=== PATIENT | male | born 1970 | race Caucasian/White ===

== ENCOUNTER 2019-04-19 10:02 | Outpatient (CLI) | payer BC, SELFPAY ==
[2019-04-19 10:26] LABS: Abs Immature Grans 0.02 k/cumm (0.0-0.09); Absolute Basophil Count 0.04 k/cumm (0.0-0.2); Absolute Eosinophil Count 0.18 k/cumm (0.0-0.7); Absolute Lymphocyte Count 1.29 k/cumm (1.2-3.4); Absolute Monocyte Count 0.52 k/cumm (0.11-0.7); Absolute Neutrophil Count 2.46 k/cumm (1.2-6.7); Basophils % 0.9; HCT 47.8 % (40.0-50.0); HGB 16.8 g/dL (13.5-17.5); Immature Grans % 0.4; Lymphocytes % 28.6; Mean Corp. HGB Concentration 35.1 g/dL (32.0-36.0); Mean Corpuscular Hemoglobin 32.2 pg (27.0-33.0); Mean Corpuscular Volume 91.6 fL (80-95); Mean Platelet Volume 10.6 fL (8.0-11.0); Monocytes % 11.5; Neutrophils % 54.6; Platelet Count 222 x1000/uL (130-400); RBC 5.22 m/cumm (4.50-6.00); RBC Distribution Width 12.1 % (11.8-14.1); White Blood Cell Count 4.51 k/cumm (4.4-10.8)
[2019-04-19 11:13] LABS: ALT 247 U/L (16-63); AST 116 U/L (15-37); Albumin 4.3 g/dL (3.4-5.0); Alkaline Phosphatase 56 U/L (46-116); Anion Gap 13.3 mmol/L (3-11); BUN 12 mg/dL (7-18); Bilirubin, Total 0.8 mg/dL (0.2-1.0); CO2 25.7 mmol/L (21.0-32.0); CREATININE 1.03 mg/dL (0.70-1.30); Calcium 9.4 mg/dL (8.5-10.1); Calculated LDL 220 mg/dL; Chloride 103 mmol/L (98-107); Cholesterol 320 mg/dL (50-200); Glucose 113 mg/dL (70-100); HDL Cholesterol 58 mg/dL (40-60); Potassium 3.8 mmol/L (3.5-5.1); Sodium 142 mmol/L (136-145); Total Protein 7.2 g/dL (6.4-8.2); Triglyceride 213 mg/dL (30-150)
== END 2019-04-19 10:22 ==
PROVIDERS: PCP Family Medicine; Visit Provider Family Medicine
DX: R09.89 Other specified symptoms and signs involving the circulatory and respiratory systems; I10 Essential (primary) hypertension; E78.5 Hyperlipidemia, unspecified
CPT/HCPCS: 36415; 80053; 80061; 83721; 85025

== ENCOUNTER 2020-01-19 02:06 | Outpatient (CLI) | payer BC, SELFPAY ==
[2020-01-19 09:47] LABS: ALT 115 U/L (16-63); AST 57 U/L (15-37); Albumin 4.8 g/dL (3.4-5.0); Alkaline Phosphatase 61 U/L (46-116); Bilirubin, Direct 0.34 mg/dL (0.00-0.20); Bilirubin, Total 1.5 mg/dL (0.2-1.0); Total Protein 7.8 g/dL (6.4-8.2)
[2020-01-19 10:16] LABS: Calculated LDL 114 mg/dL (<100); Cholesterol 208 mg/dL (<200); HDL Cholesterol 64 mg/dL (40-60); Triglyceride 150 mg/dL (<150)
== END 2020-01-19 02:26 ==
PROVIDERS: PCP Family Medicine; Visit Provider Family Medicine
DX: E78.5 Hyperlipidemia, unspecified (principal)
CPT/HCPCS: 36415; 80061; 80076

== ENCOUNTER 2020-07-09 04:18 | Outpatient (CLI) | payer BC, SELFPAY ==
[2020-07-13 00:47] LABS: Patient Race White; SARS-CoV-2 RNA Undetected (Undetected); SARS-CoV-2 Specimen Source Nasal
== END 2020-07-09 04:38 ==
PROVIDERS: PCP Family Medicine; Visit Provider Family Medicine
DX: Z20.828 Contact with and (suspected) exposure to other viral communicable diseases (principal)
CPT/HCPCS: U0003

== ENCOUNTER 2020-08-31 16:39 | Emergency (ER) | payer BC, SELFPAY ==
[2020-08-31 16:45] VITALS: BP 198/114; PULSE 122; RESP 18; TEMP 37; O2SAT 98
--- NOTE | 2020-08-31 16:45 | RT.EKG_ITS ---
APPROVED REPORT Exam: Resting ECG Patient Location: E HR:122 bpm ECG Measurements Heart Rate 122 AXIS ME 160 P 59 QRSd 88 QRS -21 QT 325 T 50 QTc 463 Conclusion Sinus tachycardia...rate> 99
--- NOTE | 2020-08-31 17:00 | DI.RAD_ITS ---
EXAM: XR CHEST 2V PA LATERAL CLINICAL HISTORY: Elevated blood pressure TECHNIQUE: 2D digital imaging was performed. COMPARISON: CR RIGHT THUMB from 05/10/2015 FINDINGS: MEDIASTINUM: Normal. HEART: Normal. PULMONARY VASCULATURE: Normal. LUNGS: Clear. PLEURAL SPACE: No pleural effusion or pneumothorax. BONE:Normal. OTHER FINDINGS:Normal. IMPRESSION: No acute pulmonary findings. DATA REPOSITORY: RADIATION DOSE DELIVERED:
--- NOTE | 2020-08-31 17:05 | W.ED.GENAD ---
Discharge Plan Disposition Patient Disposition: HOME Condition: Improving Discharge Details Clinical Impression: Acute hypokalemia Primary Care Provider: Ross Pugh ED Provider: Edson Escamilla Home Meds and New Rx's Prescriptions: Continued atorvastatin 40 mg tablet 40 mg PO QHS Qty: 90 RF: 3 omeprazole 20 mg capsule,delayed release(DR/EC) 20 mg PO DAILY PRNRF: 0 alprazolam [Xanax] 0.5 mg tablet 0.5 mg PO BID PRN (Reason: anxiety) Qty: 30 RF: 0 losartan 50 mg tablet 50 mg PO DAILY Qty: 90 RF: 3 Discharge Instructions Instructions: Hypokalemia (ED) Additional Instructions: Home to rest today. Please follow-up in clinic for recheck and to recheck blood pressure in the next 1 to 2 weeks time. Your potassium corrected following supplementation in the ER today. As we discussed, I recommend you discontinue the ketogenic diet. Return to the ER for any acute concerns. Medical Decision Making 50-year-old male with a history of known labile hypertension presents from home stating that he had a normal day, 1 for a 5 mile run that was unremarkable, and then this evening became anxious, felt pounding and rapid heart rate, it became constant and his anxiety escalated. He simply reports the ER for evaluation. He will note that he has been observing a ketogenic diet and efforts to lose weight. [place] generally weak yesterday. States he drinks approximately 4 to 6 ounces of liquor per night. He is afebrile, pulse of 120s, blood pressure 198/114 initially. He is quite anxious. Differential gnosis includes dehydration, electrolyte abnormalities, benign palpitations, dysrhythmia, must exclude coronary disease. IV access established, patient given fluid bolus, anxiolytic and is referred for chest x-ray and laboratory testing. Labs: White count 8, hematocrit 44, platelets 223 sodium 137, potassium 2.8, BUN 21, creatinine 1.2. Calcium is 8.5, magnesium 2.0, AST 80, ALT 126. Troponin negative. Chest x-ray without acute findings. Patient felt significantly improved following anxiolytic and fluids. His blood pressure corrected to approximately 157/90, pulse corrected to 85. His hypokalemia may be due to to recent dietary changes with ketogenic diet. Not classically associated with angiotensin receptor blockers. Potassium was supplemented, patient observed on the cardiac cath lab radiology technologist and potasssium and troponin repeated. Potassium improved to 3.7, repeat troponin negative Discussed with patient that I recommend he cease his ketogenic diet, continue to work on decreasing daily alcohol use. He will need to follow-up in clinic for recheck. He is stable and improved at this time. HPI General Mode of arrival: ambulatory. Date/Time Provider Initiated Documentation: 08/31/20 16:45. Limitations to Documentation: no limitations. Information obtained by: patient. History of Present Illness 50 year old M presents to the emergency department with the chief complaint of Elevated blood pressure and pounding chest discomfort, described as moderate, Quality is described as dull, and is localized to the chest and left. Patient reports no radiation. Patient started experiencing this hour(s) and it has been constant. No relieving factors improve symptom(s), No exacerbating factors reported . Patient notes denies diaphoresis, headaches, nausea/vomiting, shortness of breath, syncope and weakness. Patient did receive the following treatments prior to arrival, none Related Data Home Medications Medication Instructions Recorded Confirmed atorvastatin 40 mg tablet 40 mg PO QHS #90 tab 01/30/20 08/31/20 omeprazole 20 mg capsule,delayed 20 mg PO DAILY PRN cap 04/04/20 08/31/20 release alprazolam 0.5 mg tablet 0.5 mg PO BID PRN #30 tab 07/30/20 08/31/20 losartan 50 mg tablet 50 mg PO DAILY #90 tab 08/06/20 08/31/20 Previous Rx's Medication Instructions Recorded atorvastatin 40 mg tablet 40 mg PO QHS #90 tab 01/30/20 alprazolam 0.5 mg tablet 0.5 mg PO BID PRN #30 tab 07/30/20 losartan 50 mg tablet 50 mg PO DAILY #90 tab 08/06/20 Allergies Allergy/AdvReac Type Severity Reaction Status Date / Time Antihistamines - Alkylamine Allergy Unknown Verified 08/31/20 16:49 sertraline Allergy Unknown Verified 08/31/20 16:49 Sulfa (Sulfonamide Allergy Unknown Verified 08/31/20 16:49 Antibiotics) sulfamethoxazole Allergy Unknown Verified 08/31/20 16:49 [From Bactrim] trimethoprim [From Bactrim] Allergy Unknown blister on Verified 08/31/20 16:49 mouth General Stated Complaint: Chest Pain GREGORY: 2 Review of Systems Narrative: Daily alcohol use. Recently started losartan. No cough, no fever, no shortness of breath. See HPI. 8 systems reviewed and otherwise negative [facility] Medical History Anxiety state (08/22/92) Dr Dykes consult; chronic prn alprazolam; ?EtOH, exercise rx, ? 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 risk 5% (12/2011); goal LDL<130 Family History Mother Age: 78 Alcohol abuse Father Age: 82 Diabetes Myocardial infarction Sister No problems noted. Sister No problems noted. 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 Pets and animals: Yes Pets and animals: cat(s) Sexually active: Yes Do you think of yourself as: straight/heterosexual Current gender identity: male What is your relationship status?: How often do you talk on the phone with friends or family?: three or more times per week How often do you get together with friends or relatives?: decline to answer How often do you attend taoist or sikhism services?: decline to answer Do you belong to any clubs or organized social groups?: no Panel score (0-1 are the most socially isolated patients): 2 What type of physical activity do you participate in: bicycling, weight lifting and running Duration: 60-90 minutes/day Frequency: daily Kala/Adventism: None Special kala needs: No Seatbelt use: sometimes Helmet use: Yes Drive intox or ride w/intox starting gate driver: No Do you feel safe at home: Yes Do you feel safe in your relationship?: No Exam Narrative Exam Narrative: GEN: awake, alert, oriented 3. Pleasant, well groomed, interactive. HEAD: Normocephalic, atraumatic ENT: Mucous membranes moist, oropharynx unremarkable, External ear exam unremarkable EYES: PERRL, EOMI NECK: Full ROM, no LETY, no menigismus CHEST/RESP: Nontender, clear to auscultation bilateral, no wheeze/rhonchi/rales CARDIOVASCULAR: Regular and tachycardic, no murmur, rub doug. 2+ Rad pulse bilateral ABDOMEN: Soft, nontender, no mass. +Bowel sounds EXT: Full ROM, no edema, no rash Neuro: Grossly normal neurologic exam, conversant, interactive. Psych: Speech fluent, thoughts congruent, affect anxious Course Vital Signs Vital signs: Vital Signs Temperature 37 C 08/31/20 16:45 Pulse 122 H 08/31/20 16:45 Respiratory Rate 18 08/31/20 16:45 Blood Pressure 198/114 H 08/31/20 16:45 Pulse Oximetry 98 08/31/20 16:45 Temperature 37 C 08/31/20 16:45 Temperature Source Skin 08/31/20 16:45 Pulse 122 H 08/31/20 16:45 Respiratory Rate 18 08/31/20 16:45 Respiratory Effort Non-Labored 08/31/20 16:45 Blood Pressure 198/114 H 08/31/20 16:45 Blood Pressure Position Supine 08/31/20 16:45 Pulse Oximetry 98 08/31/20 16:45 Pain Level 8 08/31/20 16:45
[2020-08-31 17:16] LABS: Abs Immature Grans 0.03 10^3/uL (0.0-0.06); Absolute Basophil Count 0.04 10^3/uL (0.0-0.2); Absolute Eosinophil Count 0.21 10^3/uL (0.0-0.7); Absolute Lymphocyte Count 2.75 10^3/uL (1.2-3.4); Absolute Monocyte Count 1.07 10^3/uL (0.1-0.8); Absolute Neutrophil Count 4.68 10^3/uL (1.2-6.7); Basophils % 0.5; Eosinophils % 2.4; HCT 44.9 % (40.0-50.0); HGB 15.8 g/dL (13.5-17.5); Immature Grans % 0.3; Lymphocytes % 31.3; MCH 31.9 pg (27.0-33.0); MCHC 35.2 % (32.0-36.0); MCV 90.5 fL (80-95); MPV 10.6 fL (8.0-11.0); Monocytes % 12.2; Neutrophils % 53.3; Nucleated RBC 0 %; Platelet Count 223 10^3/uL (130-400); RBC 4.96 10^6/uL (4.36-5.78); RDW 11.5 % (11.8-14.1); RDW-SD 38.1 fL; WBC 8.78 10^3/uL (4.4-10.8)
[2020-08-31] MEDS: Normal Saline 250 ML 500 ML IV (17:16)
[2020-08-31 17:32] LABS: ALT 126 U/L (16-63); AST 80 U/L (15-37); Albumin 4.5 g/dL (3.4-5.0); Alkaline Phosphatase 54 U/L (46-116); Anion Gap 15.4 mmol/L (3-11); BUN 21 mg/dL (7-18); Bilirubin, Total 0.8 mg/dL (0.2-1.0); CO2 23.6 mmol/L (21.0-32.0); CREATININE 1.29 mg/dL (0.70-1.30); Calcium 8.5 mg/dL (8.5-10.1); Chloride 98 mmol/L (98-107); Estimated GFR 58.72 (mL/min/1.73m2); Glucose 102 mg/dL (74-106); Sodium 137 mmol/L (136-145); Total Protein 7.7 g/dL (6.4-8.2); Troponin I < 0.05 ng/mL (<0.06)
[2020-08-31] MEDS: LORazepam 2 MG/ML VIAL 1 MG IVP (17:32)
[2020-08-31 17:33] LABS: Potassium 2.8 mmol/L (3.5-5.1)
[2020-08-31] MEDS: POTASSIUM CHLORIDE 10 MEQ/100 ML BAG 100 MEQ IVPB (17:53)
[2020-08-31] MEDS: Potassium Chloride Liquid 20 MEQ PKT PO (17:54)
[2020-08-31 17:57] VITALS: BP 157/90; PULSE 94; RESP 16; O2SAT 95
--- NOTE | 2020-08-31 18:10 | DI.VRAD_ITS ---
PROCEDURE INFORMATION: Exam: XR Chest, 2 Views Exam date and time: 08/31/2020 5:02 PM Age: 50 years old Clinical indication: Other: Elevated blood preasure TECHNIQUE: Imaging protocol: XR of the chest Views: 2 views. COMPARISON: No relevant prior studies available. FINDINGS: Lungs: There is bilateral subsegmental atelectasis in the mid lungs. No focal consolidation. Pleural space: Unremarkable. No pleural effusion. No pneumothorax. Heart/Mediastinum: Unremarkable. No cardiomegaly. Bones/joints: Unremarkable. IMPRESSION: No acute pulmonary process. Dictated and Authenticated by: Berny Khalil MD. Ordering:ARSENIO Sandhu MD
[2020-08-31 18:44] VITALS: BP 144/84; PULSE 99; RESP 16; O2SAT 96
[2020-08-31 19:15] LABS: Potassium 3.7 mmol/L (3.5-5.1)
[2020-08-31 19:42] VITALS: BP 154/99; PULSE 97; RESP 15; O2SAT 97
--- NOTE | 2020-08-31 19:45 | NUR.NOTE ---
report to KRIS Crow
[2020-08-31 19:55] LABS: Troponin I < 0.05 ng/mL (<0.06)
== END 2020-08-31 20:05 | disposition home or self-care (01) ==
PROVIDERS: Emergency Provider Emergency Medicine; PCP Family Medicine
DX: E87.6 Hypokalemia (principal); R07.89 Other chest pain; F10.10 Alcohol abuse, uncomplicated
CPT/HCPCS: 36415; 80053; 93005; 96365; 96375; 99285; 71046; 83735; 84132; 84484; 85025; 93010; 99284; J2060; J3480

== ENCOUNTER 2020-09-30 03:20 | Outpatient (CLI) | payer BC, SELFPAY ==
[2020-09-30 11:11] LABS: ALT 138 U/L (16-63); AST 57 U/L (15-37); Albumin 4.2 g/dL (3.4-5.0); Alkaline Phosphatase 55 U/L (46-116); BUN 16 mg/dL (7-18); Bilirubin, Direct 0.15 mg/dL (0.00-0.20); Bilirubin, Total 0.5 mg/dL (0.2-1.0); CREATININE 1.1 mg/dL (0.70-1.30); Chloride 105 mmol/L (98-107); Glucose 116 mg/dL (74-106); Potassium 4.3 mmol/L (3.5-5.1); Sodium 141 mmol/L (136-145); Total Protein 7.3 g/dL (6.4-8.2)
== END 2020-09-30 03:21 | disposition home or self-care (01) ==
LOC: LBO 03:20
PROVIDERS: PCP Family Medicine; Visit Provider Family Medicine
DX: E78.5 Hyperlipidemia, unspecified (principal); E87.6 Hypokalemia
CPT/HCPCS: 36415; 80048; 80076

== ENCOUNTER 2020-11-04 16:26 | Observation (INO) | payer BC, SELFPAY ==
[2020-11-04 16:44] VITALS: BP 154/108; PULSE 91; RESP 16; TEMP 36.8; O2SAT 92
[2020-11-04 17:35] LABS: Bilirubin Negative (Negative); Blood Trace-intact (Negative); Clarity Clear (Clear); Glucose Negative (Negative); Ketones Negative (Negative); Leukocyte Esterase Negative (Negative); Nitrite Negative (Negative); Urobilinogen 0.2 EU/dL (Up TO 0.2); pH 5.5 (5-8)
[2020-11-04 17:49] LABS: *AMPHETAMINES SCREEN URINE Negative (Negative); *BARBITURATES SCREEN URINE Negative (Negative); *BENZODIAZEPINES SCREEN URINE Negative (Negative); Cannabinoids THC Negative (Negative); Cocaine Screen,Urine Negative (Negative); METHADONE URINE SCREEN Negative (Negative); OPIATES URINE SCREEN Negative (Negative)
[2020-11-04 17:50] LABS: Tricyclic Antidepressants Negative (Negative)
[2020-11-04 18:30] LABS: Abs Immature Grans 0.05 10^3/uL (0.0-0.06); Absolute Basophil Count 0.06 10^3/uL (0.0-0.2); Absolute Eosinophil Count 0.11 10^3/uL (0.0-0.7); Absolute Lymphocyte Count 1.54 10^3/uL (1.2-3.4); Absolute Monocyte Count 0.49 10^3/uL (0.1-0.8); Absolute Neutrophil Count 3.19 10^3/uL (1.2-6.7); Basophils % 1.1; HCT 53.2 % (40.0-50.0); HGB 18.6 g/dL (13.5-17.5); Immature Grans % 0.9; Lymphocytes % 28.3; MCH 32.5 pg (27.0-33.0); MPV 10.3 fL (8.0-11.0); Neutrophils % 58.7; Nucleated RBC 0 %; Platelet Count 266 10^3/uL (130-400); RBC 5.72 10^6/uL (4.36-5.78); RDW 11.9 % (11.8-14.1); RDW-SD 40.8 fL; WBC 5.44 10^3/uL (4.4-10.8)
[2020-11-04 18:31] LABS: ALT 129 U/L (16-63); AST 52 U/L (15-37); Albumin 4.7 g/dL (3.4-5.0); Alkaline Phosphatase 64 U/L (46-116); Anion Gap 10.2 mmol/L (3-11); BUN 13 mg/dL (7-18); Bilirubin, Total 0.4 mg/dL (0.2-1.0); CO2 28.8 mmol/L (21.0-32.0); CREATININE 1.1 mg/dL (0.70-1.30); Calcium 9.2 mg/dL (8.5-10.1); Chloride 105 mmol/L (98-107); Glucose 109 mg/dL (74-106); Potassium 4.3 mmol/L (3.5-5.1); Sodium 144 mmol/L (136-145); Total Protein 8.8 g/dL (6.4-8.2)
[2020-11-04 18:36] LABS: ETHANOL BLOOD 372.4 mg/dL (<3)
--- NOTE | 2020-11-04 18:53 | W.ED.GENAD ---
Discharge Plan Disposition Patient Disposition: [facility] INPATIENT Condition: Stable Discharge Details Clinical Impression: Alcoholic intoxication, chronic, Alcohol withdrawal Admit Date/Time: 11/04/20 19:21 Admit Provider: Jose Pompa Attending Provider: Jose Pompa Primary Care Provider: Ross Pugh ED Provider: Sukumar Crocker Medical Decision Making 50-year-old male who denies any significant past medical history except for hypertension high cholesterol and history of chronic alcohol use. He presents today for chronic alcohol abuse. Patient states that for the last 30 years he has been drinking quite a bit every day. Today he called/talk to his sister, upon discussion together he made it clear that he wanted help, she brought him to the ER for further evaluation. He did not discuss this with his . At this time he denies any homicidal or suicidal ideations however he does state that he does not help getting off of his alcohol. He did contact [facility] today, however they do not have any beds available, they recommended that he come to the ER for further evaluation and management. Patient denies any history of DTs in the past however he has not stopped drinking for the past 30 years. Patient denies any other illicit drug use. No other complaints at this time. Exam demonstrates a stable but otherwise intoxicated patient. No evidence of toxic alcohol syndrome at this time. Unremarkable neuro exam. Patient states that he does want help, he did request that we talk to his sister whom he brought in, but does not want us to talk to his at this time. I have contacted his Sister Jayne, she states that he needs significant help, and she does not feel that he would be safe coming home or coming home with her. She has nothing else to add to the history at this time. We will get laboratory work-up to evaluate for potential electrolyte imbalance or significant anion gap, we will monitor closely, discussed the case with case management, look for options of potential rehab/detox. 8:30 PM Patient's work-up is returned unremarkable, no anion gap, electrolytes stable. Alcohol level is 372 which is about 3-4 hours after his last drink. Urine drug screen is otherwise negative. I spoke with case management, they feel that he would be a candidate for [facility] for detox. This would be doable if the patient is admitted. The patient's long history of alcohol use he does have a notable potential for withdrawal while waiting for a rehab option. We will admit for further monitoring. The patient remains in agreement with this. I did reach out to his , and she confirms the history as well as her wishes that he go to a specific rehab facility in [place]. She has made it clear that she will be evaluating this option tonight, and looking to find out the necessary work/paperwork to help facilitate this from her capabilities. However she is also made it clear that she also understands that this may not be a viable option and she is very happy to use the resources that we have available here with [facility] She has expressed that her strongest desire is that he just gets help. She will call back in the morning to speak with case management. I discussed the case with Dr. Pompa, he agrees with the assessment and plan. I have extensively reviewed the treatment plan with the patient. I have addressed all patient concerns at this time. I have also discussed the plan with the admitting physician and they agree with the current assessment and plan and have agreed to assume responsibility for the patient. All parties demonstrate verbal understanding and agreement with our assessment and plan at this time. The documentation in this chart was dictated using [employer] dictation software. Please excuse any dictation errors. HPI General Date/Time Provider Initiated Documentation: 11/04/20 16:29. HPI Narrative: 50-year-old male who denies any significant past medical history except for hypertension high cholesterol and history of chronic alcohol use. He presents today for chronic alcohol abuse. Patient states that for the last 30 years he has been drinking quite a bit every day. Today he called/talk to his sister, upon discussion together he made it clear that he wanted help, she brought him to the ER for further evaluation. He did not discuss this with his . At this time he denies any homicidal or suicidal ideations however he does state that he does not help getting off of his alcohol. He did contact [facility] today, however they do not have any beds available, they recommended that he come to the ER for further evaluation and management. Patient denies any history of DTs in the past however he has not stopped drinking for the past 30 years. Patient denies any other illicit drug use. No other complaints at this time. Related Data Home Medications Medication Instructions Recorded Confirmed atorvastatin 40 mg tablet 40 mg PO QHS #90 tab 01/30/20 11/04/20 omeprazole 20 mg capsule,delayed 20 mg PO DAILY PRN cap 04/04/20 11/04/20 release alprazolam 0.5 mg tablet 0.5 mg PO BID PRN #30 tab 10/03/20 11/04/20 losartan 100 mg tablet 100 mg PO DAILY #90 tab 10/11/20 11/04/20 Previous Rx's Medication Instructions Recorded atorvastatin 40 mg tablet 40 mg PO QHS #90 tab 01/30/20 alprazolam 0.5 mg tablet 0.5 mg PO BID PRN #30 tab 10/03/20 losartan 100 mg tablet 100 mg PO DAILY #90 tab 10/11/20 Allergies Allergy/AdvReac Type Severity Reaction Status Date / Time Antihistamines - Alkylamine Allergy Unknown Verified 11/04/20 16:51 sertraline Allergy Unknown Verified 11/04/20 16:51 Sulfa (Sulfonamide Allergy Unknown Verified 11/04/20 16:51 Antibiotics) sulfamethoxazole Allergy Unknown 03/08/18-pt Verified 11/04/20 16:51 [From Bactrim] reports had a blister on his lip trimethoprim [From Bactrim] Allergy Unknown blister on Verified 11/04/20 16:51 mouth lisinopril AdvReac Intermediate Dry Cough Verified 11/04/20 16:51 General Stated Complaint: ETOHWithdr GREGORY: 3 Review of Systems All systems reviewed & are unremarkable except as noted in HPI and below PFSH Medical History Anxiety state (08/22/92) Dr Dykes consult; chronic prn alprazolam; ?EtOH, exercise rx, ? 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 risk 5% (12/2011); goal LDL<130 Family History Mother Age: 78 Alcohol abuse Father Age: 82 Diabetes Myocardial infarction Sister No problems noted. Sister No problems noted. 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 Pets and animals: Yes Pets and animals: cat(s) Sexually active: Yes Do you think of yourself as: straight/heterosexual Current gender identity: male What is your relationship status?: How often do you talk on the phone with friends or family?: three or more times per week How often do you get together with friends or relatives?: decline to answer How often do you attend zoroastrianism or uatsdin services?: decline to answer Do you belong to any clubs or organized social groups?: no Panel score (0-1 are the most socially isolated patients): 2 What type of physical activity do you participate in: bicycling, weight lifting and running Duration: 60-90 minutes/day Frequency: daily Kala/Holiness: None Special kala needs: No Seatbelt use: sometimes Helmet use: Yes Drive intox or ride w/intox non emergency services ambulance driver: No Do you feel safe at home: Yes Do you feel safe in your relationship?: No Exam Narrative Exam Narrative: 1.Const: Well-nourished, Well-developed, appearing stated age 2.Eyes: PERRL, no conjunctival injection, and symmetrical lids. 3.ENT: Atraumatic external nose and ears. Moist MM. Neck: Symmetric, trachea midline, No thyromegaly. 4.CVS: +S1/S2, No murmurs or gallops. Peripheral pulses 2+ and equal in all extremities. Brisk capillary refill in all extremities. 5.RESP: Unlabored respiratory effort. Clear to auscultation bilaterally. No wheezes rales or rhonchi 6.GI: Soft, Nontender/Nondistended, No hepatosplenomegaly. No guarding or rebound. 7.MSK: Normocephalic/Atraumatic, Extremities w/o deformity or ttp No cyanosis or clubbing, Normal movement of all extremities 8.Skin: Warm, Dry. No rashes or lesions. 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 Sensation grossly intact, no focal neurologic deficits. 10.Psych: (AAO) x3. Appropriate mood and affect Course Vital Signs Vital signs: Vital Signs Temperature 36.8 C 11/04/20 16:44 Pulse 91 H 11/04/20 16:44 Respiratory Rate 16 11/04/20 16:44 Blood Pressure 154/108 H 11/04/20 16:44 Pulse Oximetry 92 11/04/20 16:44 Temperature 36.8 C 11/04/20 16:44 Temperature Source Oral 11/04/20 16:44 Pulse 91 H 11/04/20 16:44 Respiratory Rate 16 11/04/20 16:44 Respiratory Effort Non-Labored 11/04/20 16:44 Blood Pressure 154/108 H 11/04/20 16:44 Blood Pressure Position Sitting 11/04/20 16:44 Pulse Oximetry 92 11/04/20 16:44 Oxygen Delivery Method Room Air 11/04/20 16:44 Oxygen Flow Rate 0 11/04/20 16:44 End Tidal Co2 0 11/04/20 16:44 Pain Level 0 11/04/20 16:44 Lab/Test Results Lab/Test Results: Laboratory Tests Range/Units 11/04/20 11/04/20 11/04/20 17:10 17:10 17:51 WBC (4.4-10.8) 10^3/uL RBC (4.36-5.78) 10^6/uL Hgb (13.5-17.5) g/dL Hct (40.0-50.0) % MCV (80-95) fL MCH (27.0-33.0) pg MCHC (32.0-36.0) % RDW (11.8-14.1) % Plt Count (130-400) 10^3/uL MPV (8.0-11.0) fL Immature Gran % Neutrophils % Lymphocytes % Monocytes % Eosinophils % Basophils % Nucleated RBC % % Absolute Neutrophils (1.2-6.7) 10^3/uL Absolute Lymphocytes (1.2-3.4) 10^3/uL Absolute Monocytes (0.1-0.8) 10^3/uL Absolute Eosinophils (0.0-0.7) 10^3/uL Absolute Basophils (0.0-0.2) 10^3/uL Sodium (136-145) mmol/L 144 Potassium (3.5-5.1) mmol/L 4.3 Chloride (98-107) mmol/L 105 Carbon Dioxide (21.0-32.0) mmol/L 28.8 Anion Gap (3-11) mmol/L 10.2 BUN (7-18) mg/dL 13 Creatinine (0.70-1.30) mg/dL 1.1 Estimated GFR/1.73 m2 (mL/min/1.73m2) >= 60.00 Glucose (74-106) mg/dL 109 H Calcium (8.5-10.1) mg/dL 9.2 Total Bilirubin (0.2-1.0) mg/dL 0.4 AST (15-37) U/L 52 H ALT (16-63) U/L 129 H Alkaline Phosphatase (46-116) U/L 64 Total Protein (6.4-8.2) g/dL 8.8 H Albumin (3.4-5.0) g/dL 4.7 Urine Color (Yellow) Yellow Urine Clarity (Clear) Clear Urine pH (5-8) 5.5 Ur Specific [place] (1.005-1.025) 1.010 Urine Protein (Negative) mg/dL Negative Urine Ketones (Negative) mg/dL Negative Urine Blood (Negative) Trace-intact H Urine Nitrite (Negative) Negative Urine Bilirubin (Negative) Negative Urine Urobilinogen (Up TO 0.2) EU/dL 0.2 Ur Leukocyte Esterase (Negative) Negative Urine Glucose (Negative) mg/dL Negative Urine Opiates Screen (Negative) Negative Urine Methadone Screen (Negative) Negative Ur Barbiturates Screen (Negative) Negative Ur Tricyclics Screen (Negative) Negative Ur Amphetamines Screen (Negative) Negative U Benzodiazepines Scrn (Negative) Negative Urine Cocaine Screen (Negative) Negative Ur THC Screen (Negative) Negative Ethyl Alcohol (<3) mg/dL 372.4 Range/Units 11/04/20 17:51 WBC (4.4-10.8) 10^3/uL 5.44 RBC (4.36-5.78) 10^6/uL 5.72 Hgb (13.5-17.5) g/dL 18.6 H Hct (40.0-50.0) % 53.2 H MCV (80-95) fL 93.0 MCH (27.0-33.0) pg 32.5 MCHC (32.0-36.0) % 35.0 RDW (11.8-14.1) % 11.9 Plt Count (130-400) 10^3/uL 266 MPV (8.0-11.0) fL 10.3 Immature Gran % 0.9 Neutrophils % 58.7 Lymphocytes % 28.3 Monocytes % 9.0 Eosinophils % 2.0 Basophils % 1.1 Nucleated RBC % % 0 Absolute Neutrophils (1.2-6.7) 10^3/uL 3.19 Absolute Lymphocytes (1.2-3.4) 10^3/uL 1.54 Absolute Monocytes (0.1-0.8) 10^3/uL 0.49 Absolute Eosinophils (0.0-0.7) 10^3/uL 0.11 Absolute Basophils (0.0-0.2) 10^3/uL 0.06 Sodium (136-145) mmol/L Potassium (3.5-5.1) mmol/L Chloride (98-107) mmol/L Carbon Dioxide (21.0-32.0) mmol/L Anion Gap (3-11) mmol/L BUN (7-18) mg/dL Creatinine (0.70-1.30) mg/dL Estimated GFR/1.73 m2 (mL/min/1.73m2) Glucose (74-106) mg/dL Calcium (8.5-10.1) mg/dL Total Bilirubin (0.2-1.0) mg/dL AST (15-37) U/L ALT (16-63) U/L Alkaline Phosphatase (46-116) U/L Total Protein (6.4-8.2) g/dL Albumin (3.4-5.0) g/dL Urine Color (Yellow) Urine Clarity (Clear) Urine pH (5-8) Ur Specific [place] (1.005-1.025) Urine Protein (Negative) mg/dL Urine Ketones (Negative) mg/dL Urine Blood (Negative) Urine Nitrite (Negative) Urine Bilirubin (Negative) Urine Urobilinogen (Up TO 0.2) EU/dL Ur Leukocyte Esterase (Negative) Urine Glucose (Negative) mg/dL Urine Opiates Screen (Negative) Urine Methadone Screen (Negative) Ur Barbiturates Screen (Negative) Ur Tricyclics Screen (Negative) Ur Amphetamines Screen (Negative) U Benzodiazepines Scrn (Negative) Urine Cocaine Screen (Negative) Ur THC Screen (Negative) Ethyl Alcohol (<3) mg/dL
[2020-11-04 18:59] LABS: Bacteria Negative HPF (Negative); C & S Indicated? No; Casts Negative LPF (Negative); Crystals Negative HPF (Negative); Epithelial Cells Negative HPF (Negative); Mucus Negative (Negative); Other Cells Negative (Negative); RBC 0-2 HPF (0-2); WBC Negative HPF (0-5)
--- NOTE | 2020-11-04 19:14 | HPE_ITS ---
Date of service: 11/04/20 Time of Service: 19:14 Assessment and Plan Assessment and plan (1) Alcoholism: Status: Acute Assessment and plan: Alcoholism. Probably some early withdrawal. Will begin scheduled Librium along with prn benzo per CIWA. Will also give initial dose Lopressor for hyperdynamic state. Modest alcoholic hepatitis note, w/o signs synthetic dysfunction. Will track. 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 States drinks half bottle spirits per day. Decided today that he wishes to detox and came to ER. In ER noted be somewhat anxious and labs of note for modest transaminitis and EtOH 372. Per Care Management is admitted pending availability of bed at [facility]. States he is quite anxious about stopping drinking. Review of Systems All systems reviewed & are unremarkable except as noted in HPI and below PFSH Medical History Anxiety state (08/22/92) Dr Dykes consult; chronic prn alprazolam; ?EtOH, exercise rx, ? 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 risk 5% (12/2011); goal LDL<130 Family History Mother Age: 78 Alcohol abuse Father Age: 82 Diabetes Myocardial infarction Sister No problems noted. Sister No problems noted. 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 Pets and animals: Yes Pets and animals: cat(s) Sexually active: Yes Do you think of yourself as: straight/heterosexual Current gender identity: male What is your relationship status?: How often do you talk on the phone with friends or family?: three or more times per week How often do you get together with friends or relatives?: decline to answer How often do you attend jew or muslim services?: decline to answer Do you belong to any clubs or organized social groups?: no Panel score (0-1 are the most socially isolated patients): 2 What type of physical activity do you participate in: bicycling, weight lifting and running Duration: 60-90 minutes/day Frequency: daily Kala/Baptist: None Special kala needs: No Seatbelt use: sometimes Helmet use: Yes Drive intox 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 Do you feel safe at home: Yes Do you feel safe in your relationship?: No Meds Home Medications and Allergies Allergies Allergy/AdvReac Type Severity Reaction Status Date / Time Antihistamines - Alkylamine Allergy Unknown Verified 11/04/20 16:51 sertraline Allergy Unknown Verified 11/04/20 16:51 Sulfa (Sulfonamide Allergy Unknown Verified 11/04/20 16:51 Antibiotics) sulfamethoxazole Allergy Unknown 03/08/18-pt Verified 11/04/20 16:51 [From Bactrim] reports had a blister on his lip trimethoprim [From Bactrim] Allergy Unknown blister on Verified 11/04/20 16:51 mouth lisinopril AdvReac Intermediate Dry Cough Verified 11/04/20 16:51 Home Medications Medication Instructions Recorded Confirmed Type atorvastatin 40 mg tablet 40 mg PO QHS #90 tab 01/30/20 11/04/20 Rx omeprazole 20 mg capsule,delayed 20 mg PO DAILY PRN cap 04/04/20 11/04/20 Hist ory release alprazolam 0.5 mg tablet 0.5 mg PO BID PRN #30 tab 10/03/20 11/04/20 Rx losartan 100 mg tablet 100 mg PO DAILY #90 tab 10/11/20 11/04/20 Rx Exam Narrative Exam Narrative: 1564/108, 91, 36.8, 16, 92% RA. HEENT atraumatic; neck supple; lungs clear; heart RRR w/o MRG; abdomen soft and NT; extremities w/o edema, neuro Ox3, tense, moves all 4s Results Labs Result diagrams: 11/04/20 17:51 11/04/20 17:51 Labs: Laboratory Results - last 24 hr 11/04/20 11/04/20 11/04/20 17:10 17:10 17:51 WBC RBC Hgb Hct MCV MCH MCHC RDW Plt Count MPV Immature Gran % Neutrophils % Lymphocytes % Monocytes % Eosinophils % Basophils % Nucleated RBC % Absolute Neutrophils Absolute Lymphocytes Absolute Monocytes Absolute Eosinophils Absolute Basophils Sodium 144 Potassium 4.3 Chloride 105 Carbon Dioxide 28.8 Anion Gap 10.2 BUN 13 Creatinine 1.1 Estimated GFR/1.73 m2 >= 60.00 Glucose 109 H Calcium 9.2 Total Bilirubin 0.4 AST 52 H ALT 129 H Alkaline Phosphatase 64 Total Protein 8.8 H Albumin 4.7 Urine Color Yellow Urine Clarity Clear Urine pH 5.5 Ur Specific [place] 1.010 Urine Protein Negative Urine Ketones Negative Urine Blood Trace-intact H Urine Nitrite Negative Urine Bilirubin Negative Urine Urobilinogen 0.2 Ur Leukocyte Esterase Negative Urine RBC 0-2 Urine WBC Negative Ur Epithelial Cells Negative Urine Crystals Negative Urine Bacteria Negative Urine Casts Negative Urine Mucus Negative Urine Other Negative Ur Culture Indicated? No Urine Glucose Negative Urine Opiates Screen Negative Urine Methadone Screen Negative Ur Barbiturates Screen Negative Ur Tricyclics Screen Negative Ur Amphetamines Screen Negative U Benzodiazepines Scrn Negative Urine Cocaine Screen Negative Ur THC Screen Negative Ethyl Alcohol 372.4 COVID-19 Source 11/04/20 11/04/20 17:51 18:45 WBC 5.44 RBC 5.72 Hgb 18.6 H Hct 53.2 H MCV 93.0 MCH 32.5 MCHC 35.0 RDW 11.9 Plt Count 266 MPV 10.3 Immature Gran % 0.9 Neutrophils % 58.7 Lymphocytes % 28.3 Monocytes % 9.0 Eosinophils % 2.0 Basophils % 1.1 Nucleated RBC % 0 Absolute Neutrophils 3.19 Absolute Lymphocytes 1.54 Absolute Monocytes 0.49 Absolute Eosinophils 0.11 Absolute Basophils 0.06 Sodium Potassium Chloride Carbon Dioxide Anion Gap BUN Creatinine Estimated GFR/1.73 m2 Glucose Calcium Total Bilirubin AST ALT Alkaline Phosphatase Total Protein Albumin Urine Color Urine Clarity Urine pH Ur Specific [place] Urine Protein Urine Ketones Urine Blood Urine Nitrite Urine Bilirubin Urine Urobilinogen Ur Leukocyte Esterase Urine RBC Urine WBC Ur Epithelial Cells Urine Crystals Urine Bacteria Urine Casts Urine Mucus Urine Other Ur Culture Indicated? Urine Glucose Urine Opiates Screen Urine Methadone Screen Ur Barbiturates Screen Ur Tricyclics Screen Ur Amphetamines Screen U Benzodiazepines Scrn Urine Cocaine Screen Ur THC Screen Ethyl Alcohol COVID-19 Source Nasopharyx Last Vital Signs Temp 36.8 C 11/04/20 16:44 Pulse 91 H 11/04/20 16:44 Resp 16 11/04/20 16:44 BP 154/108 H 11/04/20 16:44 Pulse Ox 92 11/04/20 16:44 COVID-19 Screening Have you, or household traveled for leisure in last 14 days?: No Had IN PERSON contact w/suspected or confirmed C-19 person: No
[2020-11-04 19:45] LABS: COVID-19 PCR Negative (Negative)
[2020-11-04] MEDS: chlordiazePOXIDE 25 MG CAP 50 MG PO (19:52)
[2020-11-04 20:31] VITALS: BP 135/103; PULSE 110; RESP 18; TEMP 36; O2SAT 91
[2020-11-04] MEDS: MAGNESIUM SULFATE 8.12 MEQ, MULTIVITAMIN 10 ML, THIAMINE 100 MG, FOLIC ACID 1 MG in Nor... 168.867 MG IV (20:56)
[2020-11-04] MEDS: LORazepam 1 MG TAB PO/SL (21:46)
[2020-11-04] MEDS: Metoprolol 25 MG TAB PO (21:46)
[2020-11-04 23:46] VITALS: BP 128/81; PULSE 79; RESP 20; TEMP 37.1; O2SAT 98
[2020-11-05] VITALS (12 sets, daily range): BP systolic 142–197; BP diastolic 82–110; PULSE 74–93; RESP 16–18; TEMP 36.6–37.4; O2SAT 95–97
[2020-11-05] MEDS: Lactated Ringers 1,000 ML 125 ML IV (02:50)
[2020-11-05 07:22] LABS: ALT 108 U/L (16-63); AST 44 U/L (15-37)
[2020-11-05] MEDS: chlordiazePOXIDE 25 MG CAP PO (07:45)
[2020-11-05] MEDS: Losartan 50 MG TAB 100 MG PO (07:45)
[2020-11-05] MEDS: LORazepam 1 MG TAB PO/SL (07:55)
--- NOTE | 2020-11-05 08:40 | PDOC.ERCMPRO ---
- If Service Date Differs Date of service: 11/04/20 Time of Service: 17:00 Care Management Progress Note Alcides comes to the ED via private vehicle with his family. Family report to Dr. Crocker, ED provider, that they drove Alcides to [facility], hoping he would be admitted for alcohol use treatment, but [facility] did not have an available bed and suggested they bring him to the local ER. Per ED provider, Alcides is agreeable to inpatient alcohol treatment, so CM facilitates a referral to [facility]. The family has already completed the intake process at [facility]. CM attempts to meet with Alcides in the ED but is unable to meet with him as he is transferred to the Med/Surg floor.
[2020-11-05] MEDS: Metoprolol 12.5 MG TAB PO ×2 (12:09→19:47)
[2020-11-05] MEDS: PHENobarbital 130 MG/ML VIAL IVP (12:10)
--- NOTE | 2020-11-05 12:21 | PGE_ITS ---
Date of Service Date of service: 11/05/20 Time of Service: 11:32 Assessment and Plan Assessment and plan (1) Alcohol withdrawal: Status: Acute Assessment and plan: Initially received a dose of librium for his generalized anxiety. Change from librium for withdrawal symptoms to phenobarbitol. No loading dose. Cont Banana bag supplementation. (2) Labile hypertension: Status: Acute Assessment and plan: Cont his Losartan Added metoprolol 12.5mg po BID Monitor. Subjective Subjective Patient reports: tolerating a regular diet and afebrile; denies diarrhea, nausea, vomiting and shortness of breath Interval history since last seen: He is now 24 hours since his last Etoh intake. He would like to know what to expect during withdrawal period; answered questions. Exam Const General: cooperative and no acute distress HENMT Head: normocephalic and atraumatic Eyes Sclera: sclerae normal Pupils: PERRL Resp Effort & Inspection: normal respiratory effort Auscultation: clear to auscultation bilaterally Cardio Rate: regular rate Rhythm: regular rhythm Heart Sounds: S1 normal and S2 normal GI Palpation: soft and nontender Skin General skin exam: other (Kash complexion.) Neuro General: patient alert, patient oriented x3 and no focal motor deficits Motor: tremor (very fine tremor of hands.) Extrem General: no pedal edema and no calf tenderness Psych Appearance: grossly normal Speech and Movement: speech and movement normal Affect: anxious affect Objective Last Vital Signs Temp 37.4 C 11/05/20 11:56 Pulse 93 H 11/05/20 11:56 Resp 18 11/05/20 11:56 BP 155/109 H 11/05/20 11:56 Pulse Ox 95 11/05/20 11:56 Laboratory Results - last 24 hr 11/04/20 11/04/20 11/04/20 17:10 17:10 17:51 WBC RBC Hgb Hct MCV MCH MCHC RDW Plt Count MPV Immature Gran % Neutrophils % Lymphocytes % Monocytes % Eosinophils % Basophils % Nucleated RBC % Absolute Neutrophils Absolute Lymphocytes Absolute Monocytes Absolute Eosinophils Absolute Basophils Sodium 144 Potassium 4.3 Chloride 105 Carbon Dioxide 28.8 Anion Gap 10.2 BUN 13 Creatinine 1.1 Estimated GFR/1.73 m2 >= 60.00 Glucose 109 H Calcium 9.2 Total Bilirubin 0.4 AST 52 H ALT 129 H Alkaline Phosphatase 64 Total Protein 8.8 H Albumin 4.7 Urine Color Yellow Urine Clarity Clear Urine pH 5.5 Ur Specific [place] 1.010 Urine Protein Negative Urine Ketones Negative Urine Blood Trace-intact H Urine Nitrite Negative Urine Bilirubin Negative Urine Urobilinogen 0.2 Ur Leukocyte Esterase Negative Urine RBC 0-2 Urine WBC Negative Ur Epithelial Cells Negative Urine Crystals Negative Urine Bacteria Negative Urine Casts Negative Urine Mucus Negative Urine Other Negative Ur Culture Indicated? No Urine Glucose Negative Urine Opiates Screen Negative Urine Methadone Screen Negative Ur Barbiturates Screen Negative Ur Tricyclics Screen Negative Ur Amphetamines Screen Negative U Benzodiazepines Scrn Negative Urine Cocaine Screen Negative Ur THC Screen Negative Ethyl Alcohol 372.4 COVID-19 Source SARS-CoV-2 (PCR) 11/04/20 11/04/20 11/05/20 17:51 18:45 06:35 WBC 5.44 RBC 5.72 Hgb 18.6 H Hct 53.2 H MCV 93.0 MCH 32.5 MCHC 35.0 RDW 11.9 Plt Count 266 MPV 10.3 Immature Gran % 0.9 Neutrophils % 58.7 Lymphocytes % 28.3 Monocytes % 9.0 Eosinophils % 2.0 Basophils % 1.1 Nucleated RBC % 0 Absolute Neutrophils 3.19 Absolute Lymphocytes 1.54 Absolute Monocytes 0.49 Absolute Eosinophils 0.11 Absolute Basophils 0.06 Sodium Potassium Chloride Carbon Dioxide Anion Gap BUN Creatinine Estimated GFR/1.73 m2 Glucose Calcium Total Bilirubin AST 44 H ALT 108 H Alkaline Phosphatase Total Protein Albumin Urine Color Urine Clarity Urine pH Ur Specific [place] Urine Protein Urine Ketones Urine Blood Urine Nitrite Urine Bilirubin Urine Urobilinogen Ur Leukocyte Esterase Urine RBC Urine WBC Ur Epithelial Cells Urine Crystals Urine Bacteria Urine Casts Urine Mucus Urine Other Ur Culture Indicated? Urine Glucose Urine Opiates Screen Urine Methadone Screen Ur Barbiturates Screen Ur Tricyclics Screen Ur Amphetamines Screen U Benzodiazepines Scrn Urine Cocaine Screen Ur THC Screen Ethyl Alcohol COVID-19 Source Nasopharyx SARS-CoV-2 (PCR) Negative
[2020-11-05] MEDS: Normal Saline Flush 10 ML SYR (13:52)
--- NOTE | 2020-11-05 19:10 | PDOC.CMIN ---
- If Service Date Differs Date of service: 11/05/20 Time of Service: 19:10 Care Management Initial Assess REASON FOR HOSPITALIZATION:: Alcohol Withdrawal PAST MEDICAL HISTORY/PAST SURGICAL HISTORY:: Medical History. Anxiety state (08/22/92). Dr Dykes consult; chronic prn alprazolam; ?EtOH, exercise rx, ? Panic. Cervicalgia. Gastroesophageal reflux disease (02/24/13). 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 Hyperlipidemia (01/05/12). calc. risk 5% (12/2011); goal LDL<130 PREVIOUS FUNCTIONAL STATUS/SOCIAL/FAMILY SUPPORTS:: Ed lives in [place] with his , Helen. They have three children, two are adults and one is in high school at [employer] and is boarding at school. 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 He is independent at baseline. CURRENT FUNCTIONAL STATUS:: Ed was sitting up in bed when CM met with him. He reported that he is feeling ok. He was pleasant and engaged in conversation. CM discussed his plan to go to [facility] for rehab. CM received a phone call earlier stating that he has a bed at , and they will accept him once he is past his acute withdrawal. Per report, he has never attempted quitting, therefore he does not know what to expect while he detoxes. CM assisted with turning up the heat in his room, at his request. CM will continue to follow. ADVANCE DIRECTIVES:: None on file. CM will offer forms. Has patient been provided with info about the portal/API?: Yes Did the patient sign up for the portal?: Yes (previously) CODE STATUS:: Full Code INSURANCE COVERAGE / FINANCIAL ISSUES:: BCBS CURRENT HOME/COMMUNITY SERVICES/EQUIPMENT:: No current services or equipment. PRIMARY CARE PHYSICIAN:: Ross Pugh POTENTIAL DISCHARGE NEEDS:: Rehab at [facility], where a bed is currently being held. Follow up appointments. PATIENT/FAMILY EDUCATION NEEDS:: Review discharge instructions regarding medications, expectations for detox and rehab, discussion of self care needs and goals of care. ANTICIPATED BARRIERS TO DISCHARGE:: None identified at this time. TRANSPORTATION:: Via private vehicle RCT vs family. PLAN:: Anticipate Ed will transition to [facility] for rehab after his acute withdrawal from alcohol. He is currently being monitored for withdrawal symptoms. He will be transported via RCT vs family in a private vehicle. He will follow up with his PCP and discharge plan of care. CM will contact a resource recovery engineer to follow up with him in the community. CM will continue to follow.
[2020-11-06 03:03] VITALS: BP 148/88; PULSE 75; RESP 18; TEMP 36.6; O2SAT 97
[2020-11-06 07:53] VITALS: BP 157/94; PULSE 95; RESP 16; TEMP 36.4; O2SAT 97
[2020-11-06 08:08] VITALS: PULSE 72
[2020-11-06] MEDS: Metoprolol 12.5 MG TAB PO (09:04)
[2020-11-06] MEDS: Losartan 50 MG TAB 100 MG PO (09:04)
[2020-11-06 10:41] VITALS: BP 156/97; PULSE 80; RESP 16; TEMP 36.6; O2SAT 95
--- NOTE | 2020-11-06 12:18 | W.PM.DS.N ---
Date of service: 11/06/20 Time of Service: 12:19 DS: Diagnosis Discharge Diagnosis (1) Alcohol withdrawal: Status: Acute (2) Labile hypertension: Status: Acute Discharge Plan Disposition Patient Disposition: OTHER Condition: Stable Discharge Details Reason For Visit: ALCOHOL WITHDRAWAL Admit Date/Time: 11/04/20 19:21 Admit Provider: Jose Pompa Attending Provider: Jose Pompa Primary Care Provider: Ross Pugh [place] [facility] Course Hospital Course: This is a 50 year old male with a PMH of 30 yrs of alchol abuse, anxiety, HLD, HTN, GERD. He wishes to detox from alcohol. His last drink wasfour hours prior to admission. He stated he drinks 3- 4 4oz drinks of hard liquor per day. Decided today that he wishes to detox and came to ER. In ER noted be somewhat anxious and labs of note for modest transaminitis and EtOH 372. He has been accepted to [facility] after detoxing. He was given Librium initially x 1 dose, then changed to Phenobarbital and received an initial dose. He did not score on a CIWA scale during this stay and no further phenobarbital was administered. He was continued on his home Losartan and metoprolol 12.5mg BID was added for BP control. He will d/c and proceed to [facility] for inpatient substance abuse rehab. Home Meds and New Rx's Prescriptions: New metoprolol tartrate 25 mg Tablet 12.5 mg PO BID Qty: 60 RF: 0 Continued atorvastatin 40 mg tablet 40 mg PO QHS Qty: 90 RF: 3 omeprazole 20 mg capsule,delayed release(DR/EC) 20 mg PO DAILY PRNRF: 0 alprazolam [Xanax] 0.5 mg tablet 0.5 mg PO BID PRN (Reason: anxiety) Qty: 30 RF: 0 losartan 100 mg tablet 100 mg PO DAILY Qty: 90 RF: 3 Discharge Instructions Instructions: Abuse of Alcohol (DC) Stand Alone Forms: Nursing Discharge Form Activity:: Activity as Tolerated Equipment/Supplies:: No Equipment Needed Diet:: Low Sodium Discharge Orders Discharge Orders: Discharge Order (Routine); Ordered 11/06/20 Ordered By: Med Urban DS: Summary Time Spent with Patient providing and/or coordinating discharge services: Greater than 30 minutes Status at Discharge Functional status at discharge: independent ambulation Overall status at discharge: patient is not back to baseline Mental Status: mental status grossly normal Speech and Movement: speech and movement normal Mood: congruent mood Affect: normal affect Exam Psych Mental Status: mental status grossly normal Speech and Movement: speech and movement normal Mood: congruent mood Affect: normal affect DS: Data Vitals/I&O Vitals and I&O: Vital Signs Temperature 36.6 C 11/06/20 10:41 Temperature Source Tympanic 11/06/20 10:41 Pulse 80 11/06/20 10:41 Pulse Rhythm Regular 11/06/20 07:54 Respiratory Rate 16 11/06/20 10:41 Respiratory Effort 11/06/20 07:54 Respiratory Depth Normal 11/06/20 07:54 Respiratory Pattern Normal 11/06/20 07:54 Blood Pressure 156/97 H 11/06/20 10:41 Blood Pressure Position Sitting 11/04/20 16:44 Pulse Oximetry 95 11/06/20 10:41 Oxygen Delivery Method Room Air 11/06/20 10:41 Oxygen Flow Rate 0 11/06/20 10:41 End Tidal Co2 0 11/04/20 16:44 Pain Level 0 11/06/20 10:41 Comment 11/05/20 07:40 Intake & Output 11/05/20 11/06/20 11/06/20 23:59 11:59 23:59 Intake Total 1500 / 3634.232 2220 / 2220 Balance 1500 / 3634.232 2220 / 2220 Intake: Oral 1500 / 1740 2220 / 2220 Other: Comment pt voiding independently PFSH Medical History Anxiety state (08/22/92) Dr Dykes consult; chronic prn alprazolam; ?EtOH, exercise rx, ? 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 risk 5% (12/2011); goal LDL<130 Family History Mother Age: 78 Alcohol abuse Father Age: 82 Diabetes Myocardial infarction Sister No problems noted. Sister No problems noted. 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 Pets and animals: Yes Pets and animals: cat(s) Sexually active: Yes Do you think of yourself as: straight/heterosexual Current gender identity: male What is your relationship status?: How often do you talk on the phone with friends or family?: three or more times per week How often do you get together with friends or relatives?: decline to answer How often do you attend scientologist or uatsdin services?: decline to answer Do you belong to any clubs or organized social groups?: no Panel score (0-1 are the most socially isolated patients): 2 What type of physical activity do you participate in: bicycling, weight lifting and running Duration: 60-90 minutes/day Frequency: daily Kala/Rastafarian: None Special kala needs: No Seatbelt use: sometimes Helmet use: Yes Drive intox or ride w/intox 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
[2020-11-06 12:36] VITALS: PULSE 70
--- NOTE | 2020-11-06 14:15 | PDOC.CMDIS ---
- If Service Date Differs Date of service: 11/06/20 Time of Service: 14:15 LACE Index Scoring Tool - Questions: Length of Stay (in days): 2 Acuity (Admit via E.D.?): Yes E.D. Visits: 2 - Answers: Total Score: 7 Risk of Readmission: Low Risk Care Management Discharge Reason for Hospitalization: Alcohol Withdrawal Discharge Plan: Alcides will discharge home today, and will transition from home to [facility] where he will remain for the duration of his alcohol withdrawal. He reports today that he is still interested in rehab for his alcohol use. He will be transported to [facility] by his sister, Jayne. CM faxed his negative Covid result to , at their request. He will follow up with his PCP and discharge plan of care. Patient/Family Education Needs: Review discharge instructions regarding expectations for detox and rehab, discussion of self care needs and goals of care.
== END 2020-11-06 14:03 | disposition other institution (70) ==
LOC: ER 16:49 → MS 20:22
PROVIDERS: Admitting Provider General Practice; Emergency Provider Student in an Organized Health Care Education/Training Program; PCP Family Medicine; Visit Provider General Practice
DX: F10.139 Alcohol abuse with withdrawal, unspecified (principal); F41.9 Anxiety disorder, unspecified; E78.5 Hyperlipidemia, unspecified; I10 Essential (primary) hypertension; K21.9 Gastro-esophageal reflux disease without esophagitis; R74.01 Elevation of levels of liver transaminase levels; Y90.8 Blood alcohol level of 240 mg/100 ml or more
CPT/HCPCS: 36415; 80053; 80307; 87635; 99222; 99232; 99239; 99285; 80320; 81003; 81015; 84450; 84460; 85025; 99217; 99219; 99225; 99284; G0378; J2560; J3490

== ENCOUNTER 2021-11-03 02:32 | Outpatient (CLI) | payer BC, SELFPAY | END 2021-11-03 02:33 | disposition home or self-care (01) | LOC: LBO 02:32 | PROVIDERS: PCP Family Medicine; Visit Provider Family Medicine ==

== ENCOUNTER 2021-11-05 02:44 | Outpatient (CLI) | payer BC, SELFPAY ==
[2021-11-05 08:54] LABS: ALT 69 U/L (16-63); AST 20 U/L (15-37); Albumin 4.3 g/dL (3.4-5.0); Alkaline Phosphatase 66 U/L (46-116); Anion Gap 9.9 mmol/L (3-11); BUN 17 mg/dL (7-18); CO2 28.1 mmol/L (21.0-32.0); CREATININE 1.3 mg/dL (0.70-1.30); Calcium 9.4 mg/dL (8.5-10.1); Chloride 104 mmol/L (98-107); Estimated GFR 57.97 (mL/min/1.73m2); Glucose 128 mg/dL (74-106); Potassium 4.4 mmol/L (3.5-5.1); Sodium 142 mmol/L (136-145); Total Protein 7.1 g/dL (6.4-8.2)
== END 2021-11-05 02:45 | disposition home or self-care (01) ==
LOC: LBO 02:45
PROVIDERS: PCP Family Medicine; Referring Provider Family Medicine; Visit Provider Family Medicine
DX: Z00.00 Encounter for general adult medical examination without abnormal findings (principal)
CPT/HCPCS: 36415; 80053

== ENCOUNTER 2022-01-01 14:51 | Outpatient (CLI) | payer BC, SELFPAY ==
--- NOTE | 2022-01-01 14:45 | RT.EKG_ITS ---
APPROVED REPORT Exam: Resting ECG Reason for Exam: chest pain, ETOH withdrawal Patient Location: O HR:100 bpm ECG Measurements Heart Rate 100 AXIS OK 174 P 49 QRSd 78 QRS -22 QT 331 T 30 QTc 427 Conclusion Sinus tachycardia...rate> 99
== END 2022-01-01 14:52 | disposition home or self-care (01) ==
LOC: DI.KIM 14:51
PROVIDERS: PCP Family Medicine; Visit Provider Student in an Organized Health Care Education/Training Program
DX: R07.9 Chest pain, unspecified (principal)
CPT/HCPCS: 93010

== ENCOUNTER 2022-01-05 03:32 | Outpatient (CLI) | payer BC, SELFPAY | END 2022-01-05 03:33 | disposition home or self-care (01) | LOC: LBO 03:32 | PROVIDERS: PCP Family Medicine; Visit Provider Student in an Organized Health Care Education/Training Program ==

== ENCOUNTER 2022-06-17 17:36 | Emergency (ER) | payer BC, SELFPAY ==
[2022-06-17 17:40] VITALS: BP 153/98; PULSE 114; RESP 20; O2SAT 95
--- NOTE | 2022-06-17 18:19 | ED.GENADUL_ITS ---
Discharge Plan Disposition Patient Disposition: HOME Condition: Improving Discharge Details Clinical Impression: Alcohol intoxication Primary Care Provider: Ross Pugh ED Provider: Washington Chadwick Home Meds and New Rx's Prescriptions: Continued naltrexone 50 mg tablet 50 mg PO DAILY Qty: 30 0RF omeprazole 20 mg capsule,delayed release(DR/EC) 20 mg PO DAILY PRN (Reason: heartburn) Qty: 90 1RF atorvastatin 40 mg tablet 40 mg PO QHS Qty: 90 3RF Discharge Instructions Instructions: Alcohol Intoxication (ED) Additional Instructions: At this time your alcohol level is 271, you are legally intoxicated but your other labs do not reveal any obvious emergent process. You were provided with IV fluid and a milligram of Ativan. You do not wish to seek detox placement and did not meet inpatient criteria here at our facility. You already have Xanax prescribed by your primary care provider for alcohol withdrawal, please take as directed. Drink alcohol in moderation. Please watch for new or worsening symptoms and return to the ER for any concerns. Lastly, please contact your primary care provider tomorrow to discuss your ER visit and need for outpatient reevaluation. Follow the instructions given to you by the catalyst recovery operator. Medical Decision Making This is a 52-year-old gentleman with a past medical history of anxiety, alcohol abuse, hypertension, presenting stating his last alcoholic drink, whiskey was approximately 1 hour ago and concerned that he will not be feeling well over the next 12-24 hours secondary to withdrawal. He reports that he does not want inpatient hospitalization, he is specifically concerned about dehydration. He does present with mild tachycardia. He reports that he has Xanax at home through his PCP but did not take any today. Given he has never had any significant withdrawal symptoms, I do not believe that phenobarbital will likely be required. Plan is to obtain IV access, give IV fluid, 1 mg of Ativan, routine screening laboratory values and I have requested that the catalyst recovery operator come evaluate the patient as well assistant track coach completed their assessment, please see their note, will help the patient with outpatient resources, he does not want to go inpatient. Patient received 4 mg IV Ativan, 2 L IV fluid. Heart rate now in the 80s. We discussed his laboratory values, alcohol of 271, otherwise no obvious emergent process. Patient does understand that as his alcohol level continues to trend downward he will likely become more symptomatic but again he has never had any serious withdrawals, seizures, DTs, etc. He does have Xanax at home that he can take that has been prescribed for withdrawals by his PCP. He does not meet inpatient criteria and does not want to seek voluntary placement for his detox at another facility. He is comfortable discharge home Standard discharge and return precautions were provided. Patient understands, is agreeable to this plan, and has no additional questions or concerns upon discharge. This documentation was generated using [employer] system, please disregard any oddities of phrase or misspellings. Medical Records Medical records reviewed: Yes I reviewed the patient's medical records. Lab Data Lab results reviewed: Yes I reviewed the patient's lab results. Labs: Laboratory Tests Range/Units 06/17/22 06/17/22 06/17/22 18:00 18:00 18:45 WBC (4.4-10.8) 10^3/uL 7.08 RBC (4.36-5.78) 10^6/uL 5.37 Hgb (13.5-17.5) g/dL 17.0 Hct (40.0-50.0) % 48.7 MCV (80-95) fL 91 MCH (27.0-33.0) pg 31.7 MCHC (32.0-36.0) % 34.9 RDW (11.8-14.1) % 11.1 L Plt Count (130-400) 10^3/uL 266 MPV (8.0-11.0) fL 10.3 Immature Gran % 0.3 Neutrophils % 58.2 Lymphocytes % 29.4 Monocytes % 9.2 Eosinophils % 2.3 Basophils % 0.6 Nucleated RBC % (0.0-0.3) % 0.0 Absolute Neutrophils (1.2-6.7) 10^3/uL 4.13 Absolute Lymphocytes (1.2-3.4) 10^3/uL 2.08 Absolute Monocytes (0.1-0.8) 10^3/uL 0.65 Absolute Eosinophils (0.0-0.7) 10^3/uL 0.16 Absolute Basophils (0.0-0.2) 10^3/uL 0.04 Sodium (136-145) mmol/L 144 Potassium (3.5-5.1) mmol/L 3.6 Chloride (98-107) mmol/L 106 Carbon Dioxide (21.0-32.0) mmol/L 27.1 Anion Gap (3-11) mmol/L 10.9 BUN (7-18) mg/dL 13 Creatinine (0.70-1.30) mg/dL 0.9 Est GFR (CKD-EPI 2020) (mL/min/1.73m2) 102.12 Glucose (74-106) mg/dL 144 H Calcium (8.5-10.1) mg/dL 8.4 L Magnesium (1.8-2.4) mg/dL 2.2 Total Bilirubin (0.2-1.0) mg/dL 0.4 ALT (16-63) U/L 64 H Alkaline Phosphatase (46-116) U/L 68 Total Protein (6.4-8.2) g/dL 7.4 Albumin (3.4-5.0) g/dL 4.2 Lipase (73-393) U/L 189 Urine Color (Yellow) Urine Clarity (Clear) Urine pH (5-8) Ur Specific [place] (1.005-1.025) Urine Protein (Negative) mg/dL Urine Ketones (Negative) mg/dL Urine Blood (Negative) Urine Nitrite (Negative) Urine Bilirubin (Negative) Urine Urobilinogen (Up TO 0.2) EU/dL Ur Leukocyte Esterase (Negative) Urine Glucose (Negative) mg/dL Urine Opiates Screen (Negative) Negative Urine Methadone Screen (Negative) Negative Ur Barbiturates Screen (Negative) Negative Ur Tricyclics Screen (Negative) Negative Ur Amphetamines Screen (Negative) Negative U Benzodiazepines Scrn (Negative) Negative Urine Cocaine Screen (Negative) Negative Ur THC Screen (Negative) Negative Ethyl Alcohol (<10) mg/dL 271.0 H Range/Units 06/17/22 18:45 WBC (4.4-10.8) 10^3/uL RBC (4.36-5.78) 10^6/uL Hgb (13.5-17.5) g/dL Hct (40.0-50.0) % MCV (80-95) fL MCH (27.0-33.0) pg MCHC (32.0-36.0) % RDW (11.8-14.1) % Plt Count (130-400) 10^3/uL MPV (8.0-11.0) fL Immature Gran % Neutrophils % Lymphocytes % Monocytes % Eosinophils % Basophils % Nucleated RBC % (0.0-0.3) % Absolute Neutrophils (1.2-6.7) 10^3/uL Absolute Lymphocytes (1.2-3.4) 10^3/uL Absolute Monocytes (0.1-0.8) 10^3/uL Absolute Eosinophils (0.0-0.7) 10^3/uL Absolute Basophils (0.0-0.2) 10^3/uL Sodium (136-145) mmol/L Potassium (3.5-5.1) mmol/L Chloride (98-107) mmol/L Carbon Dioxide (21.0-32.0) mmol/L Anion Gap (3-11) mmol/L BUN (7-18) mg/dL Creatinine (0.70-1.30) mg/dL Est GFR (CKD-EPI 2020) (mL/min/1.73m2) Glucose (74-106) mg/dL Calcium (8.5-10.1) mg/dL Magnesium (1.8-2.4) mg/dL Total Bilirubin (0.2-1.0) mg/dL ALT (16-63) U/L Alkaline Phosphatase (46-116) U/L Total Protein (6.4-8.2) g/dL Albumin (3.4-5.0) g/dL Lipase (73-393) U/L Urine Color (Yellow) Yellow Urine Clarity (Clear) Clear Urine pH (5-8) 6.0 Ur Specific [place] (1.005-1.025) 1.010 Urine Protein (Negative) mg/dL Negative Urine Ketones (Negative) mg/dL Negative Urine Blood (Negative) Negative Urine Nitrite (Negative) Negative Urine Bilirubin (Negative) Negative Urine Urobilinogen (Up TO 0.2) EU/dL 0.2 Ur Leukocyte Esterase (Negative) Negative Urine Glucose (Negative) mg/dL Negative Urine Opiates Screen (Negative) Urine Methadone Screen (Negative) Ur Barbiturates Screen (Negative) Ur Tricyclics Screen (Negative) Ur Amphetamines Screen (Negative) U Benzodiazepines Scrn (Negative) Urine Cocaine Screen (Negative) Ur THC Screen (Negative) Ethyl Alcohol (<10) mg/dL HPI General Mode of arrival: ambulatory . Date/Time Provider Initiated Documentation: 06/17/22 17:51 . Limitations to Documentation: no limitations . Information obtained by: patient . HPI Narrative: This is a 52-year-old gentleman, past medical history of anxiety, alcohol abuse, hyperlipidemia, hypertension, presenting for alcohol abuse and withdrawal. Patient states his last drink was approximately 1 hour ago, whiskey is his drink of choice. Patient states that he has never had any severe alcohol withdrawal, DTs, hallucinations, seizures, etc. Patient states that he has detox in the fa cility before but would prefer not to do that. He tells me that he feels fine now but is concerned how he will feel over the next 12-24 hours. He is concerned that he may be dehydrated and would like IV fluid. He states that he detoxed as an outpatient with his PCP and was sober for approximately 40 days, use Xanax with good results, but relapsed 7 days ago. He denies smoking or any other drug use. Related Data Home Medications Medication Instructions Recorded Confirmed atorvastatin 40 mg tablet 40 mg PO QHS #90 tabs 02/14/22 06/17/22 naltrexone 50 mg tablet 50 mg PO DAILY #30 tabs 05/11/22 06/17/22 omeprazole 20 mg capsule,delayed 20 mg PO DAILY PRN heartburn #90 05/11/22 06/17/22 release caps Previous Rx's Medication Instructions Recorded atorvastatin 40 mg tablet 40 mg PO QHS #90 tabs 02/14/22 naltrexone 50 mg tablet 50 mg PO DAILY #30 tabs 05/11/22 omeprazole 20 mg capsule,delayed 20 mg PO DAILY PRN heartburn #90 05/11/22 release caps Allergies Allergy/AdvReac Type Severity Reaction Status Date / Time Antihistamines - Alkylamine Allergy Unknown Verified 06/17/22 17:44 sertraline Allergy Unknown Verified 06/17/22 17:44 Sulfa (Sulfonamide Allergy Unknown Verified 06/17/22 17:44 Antibiotics) sulfamethoxazole Allergy Unknown 03/08/18-pt Verified 06/17/22 17:44 [From Bactrim] reports had a blister on his lip trimethoprim [From Bactrim] Allergy Unknown blister on Verified 06/17/22 17:44 mouth lisinopril AdvReac Intermediate Dry Cough Verified 06/17/22 17:44 General Stated Complaint: ETOHWithdr GREGORY: 3 Review of Systems Constitutional Constitutional: Denies fatigue, Denies fever(s), Denies headache(s) and Denies weakness Eyes Eyes: Denies change in vision ENT Ears, Nose, Mouth, and Throat: Denies headache(s) and Denies neck pain Cardiovascular Cardiovascular: Denies chest pain and Denies dyspnea Respiratory Respiratory: Denies cough and Denies dyspnea Gastrointestinal Gastrointestinal: Denies abdominal pain, Denies nausea and Denies vomiting Musculoskeletal Musculoskeletal: Denies back pain, Denies neck pain, Denies numbness and Denies tingling Integumentary/Breasts Skin/Breast: Denies rash Neurologic Neurologic: Denies headache(s), Denies numbness, Denies tingling and Denies weakness Psychiatric Psychiatric: Reports anxiety, Denies homicidal ideation and Denies suicidal ideation Endocrine Endocrine: Denies fatigue Hematologic/Lymphatic Hematologic/Lymphatic: Denies easy bleeding and Denies easy bruising PFSH All Active Problems (Updated 06/17/22 @ 20:05 by ERIC Grove) Alcohol intoxication (Acute) Alcohol use (Acute 09/21/08) pos FH (mom); daily exceeds guidelines Anxiety state (Chronic 08/22/92) Dr Dykes consult; chronic prn alprazolam; ?EtOH, exercise rx, ? 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 risk 5% (12/2011); goal LDL<130 Labile hypertension (Acute 02/24/13) high in PM, good in office in AM; elevated at vehicle controls engineer's Overweight (Acute 09/21/08) Solar keratosis (Acute 12/04/14) Family History Mother Age: 80 ETOH abuse Father Age: 83 Diabetes Myocardial infarction Sister No problems noted. Sister No problems noted. 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 Pets and animals: Yes Pets and animals: cat(s) Sexually active: Yes Do you think of yourself as: straight/heterosexual Current gender identity: male What is your relationship status?: How often do you talk on the phone with friends or family?: three or more times per week How often do you get together with friends or relatives?: three or more times per week How often do you attend latter-day or church services?: decline to answer Do you belong to any clubs or organized social groups?: yes Panel score (0-1 are the most socially isolated patients): 3 What type of physical activity do you participate in: bicycling, weight lifting and running Duration: 60-90 minutes/day Frequency: daily Kala/Yazdanism: None Special kala needs: No Seatbelt use: sometimes Helmet use: Yes Drive intox or ride w/intox route delivery service driver: No Do you feel safe at home: Yes Do you feel safe in your relationship?: No Exam Const General: cooperative, healthy appearing, comfortable and no acute distress Orientation: alert, awake and oriented x3 Other: EtOH like substance on breath HENMT Head: normal to inspection, normocephalic and atraumatic Face and sinus: normal facial exam Mouth: moist mucous membranes abnormal (Slightly dry) Throat: posterior oropharynx normal Eyes General: appearance normal, both eyes and all related structures Conjunctivae: conjunctivae normal Neck Neck: normal visual inspection, full ROM, no meningeal signs, trachea midline and supple Resp Effort & Inspection: normal respiratory effort and able to speak in complete sentences Auscultation: clear to auscultation bilaterally Cardio Rate: tachycardic (104) Rhythm: regular rhythm GI Palpation: soft, not firm, no guarding and nontender Auscultation: normal bowel sounds Back/Spine/Pelvis Back: No back tenderness Skin General skin exam: no rashes or lesions noted Neuro General: patient alert, patient awake, patient oriented x3, moves all extremities and no focal motor deficits Cognition: normal cognition Speech: speech normal Gait: normal gait Motor: muscle tone normal throughout Sensory Exam: no sensory deficits noted Extrem General: normal to inspection, full ROM, capillary refill normal, no pedal edema and no calf tenderness Psych Appearance: grossly normal Mental Status: mental status grossly normal Course Vital Signs Vital signs: Vital Signs Pulse 114 H 06/17/22 17:40 Respiratory Rate 20 06/17/22 17:40 Blood Pressure 153/98 H 06/17/22 17:40 Pulse Oximetry 95 06/17/22 17:40 Pulse 114 H 06/17/22 17:40 Respiratory Rate 20 06/17/22 17:40 Respiratory Effort Non-Labored 06/17/22 17:43 Respiratory Pattern Normal 06/17/22 17:49 Blood Pressure 153/98 H 06/17/22 17:40 Blood Pressure Position Sitting 06/17/22 17:40 Pulse Oximetry 95 06/17/22 17:40 Oxygen Delivery Method Room Air 06/17/22 17:40 Oxygen Flow Rate 0 06/17/22 17:40 Pain Level 0 06/17/22 17:40 PAWSS Have you Been Recently Intoxicated or Drunk Within the Last 30 days?: Yes Have you Ever Experienced Previous Episodes of Alcohol Withdrawal?: Yes Have you ever Experienced Withdrawal Seizures?: No Have you ever Experienced Delirium Tremens(DT)s?: No Have you ever undergone Alcohol Rehabilitation Treatment (i.e, inpt ot outpatient treatment programs)?: Yes Have you ever Experienced Blackouts?: No Have you ever Combined Alcohol with other Downers within the last 90 days?: No Result: 3
[2022-06-17] MEDS: LORazepam 2 MG/ML VIAL 1 MG IVP (18:54)
[2022-06-17] MEDS: Normal Saline 1,000 ML 1000 ML IV ×2 (18:55→19:47)
[2022-06-17 19:03] LABS: Abs Immature Grans 0.02 10^3/uL (0.0-0.06); Absolute Basophil Count 0.04 10^3/uL (0.0-0.2); Absolute Eosinophil Count 0.16 10^3/uL (0.0-0.7); Absolute Lymphocyte Count 2.08 10^3/uL (1.2-3.4); Absolute Monocyte Count 0.65 10^3/uL (0.1-0.8); Absolute Neutrophil Count 4.13 10^3/uL (1.2-6.7); Basophils % 0.6; Eosinophils % 2.3; HCT 48.7 % (40.0-50.0); Immature Grans % 0.3; Lymphocytes % 29.4; MCH 31.7 pg (27.0-33.0); MCHC 34.9 % (32.0-36.0); MCV 91 fL (80-95); MPV 10.3 fL (8.0-11.0); Monocytes % 9.2; Neutrophils % 58.2; Platelet Count 266 10^3/uL (130-400); RBC 5.37 10^6/uL (4.36-5.78); RDW 11.1 % (11.8-14.1); RDW-SD 36.7 fL; WBC 7.08 10^3/uL (4.4-10.8)
[2022-06-17 19:04] VITALS: BP 131/100; PULSE 73; RESP 18; TEMP 37; O2SAT 100
[2022-06-17 19:05] LABS: Bilirubin Negative (Negative); Blood Negative (Negative); Clarity Clear (Clear); Glucose Negative (Negative); Ketones Negative (Negative); Leukocyte Esterase Negative (Negative); Nitrite Negative (Negative); Urobilinogen 0.2 EU/dL (Up TO 0.2)
[2022-06-17 19:17] LABS: ALT 64 U/L (16-63); Albumin 4.2 g/dL (3.4-5.0); Alkaline Phosphatase 68 U/L (46-116); Anion Gap 10.9 mmol/L (3-11); BUN 13 mg/dL (7-18); Bilirubin, Total 0.4 mg/dL (0.2-1.0); CO2 27.1 mmol/L (21.0-32.0); CREATININE 0.9 mg/dL (0.70-1.30); Calcium 8.4 mg/dL (8.5-10.1); Chloride 106 mmol/L (98-107); Estimated GFR 102.12 (mL/min/1.73m2); Glucose 144 mg/dL (74-106); Lipase 189 U/L (73-393); Magnesium 2.2 mg/dL (1.8-2.4); Potassium 3.6 mmol/L (3.5-5.1); Sodium 144 mmol/L (136-145); Total Protein 7.4 g/dL (6.4-8.2)
[2022-06-17 19:25] LABS: *AMPHETAMINES SCREEN URINE Negative (Negative); *BARBITURATES SCREEN URINE Negative (Negative); *BENZODIAZEPINES SCREEN URINE Negative (Negative); Cannabinoids THC Negative (Negative); Cocaine Screen,Urine Negative (Negative); METHADONE URINE SCREEN Negative (Negative); OPIATES URINE SCREEN Negative (Negative)
[2022-06-17 19:28] LABS: Tricyclic Antidepressants Negative (Negative)
[2022-06-17 19:37] VITALS: BP 139/89; PULSE 89; RESP 18; O2SAT 100
--- NOTE | 2022-06-17 20:12 | NUR.NOTE ---
pt got out of bed pulled out his IV want to leave and is very intoxicated slurring his words , security called and was told if pt leaves to get his license plate number so we can call the police Nursing Note:
[2022-06-17 20:13] LABS: AST 40 U/L (15-37)
== END 2022-06-17 20:12 | disposition home or self-care (01) ==
PROVIDERS: Emergency Provider Physician Assistant; PCP Family Medicine
DX: F10.129 Alcohol abuse with intoxication, unspecified (principal); Y90.8 Blood alcohol level of 240 mg/100 ml or more; I10 Essential (primary) hypertension
CPT/HCPCS: 36415; 80053; 80307; 83690; 96361; 96374; 99284; 80320; 81003; 83735; 85025; J2060

== ENCOUNTER 2022-08-18 09:31 | Emergency (ER) | payer BC, SELFPAY ==
[2022-08-18 09:39] VITALS: BP 160/103; PULSE 101; RESP 18; TEMP 36.5; O2SAT 96
--- NOTE | 2022-08-18 10:17 | W.ED.GENAD ---
Discharge Plan Disposition Patient Disposition: Home Condition: Stable Discharge Details Clinical Impression: Alcohol withdrawal Primary Care Provider: Ross Pugh ED Provider: Arik Ruby Home Meds and New Rx's Prescriptions: New diazepam 10 mg tablet See Rx Instructions .ROUTE .COMPLEX Qty: 10 0RF Rx Instructions: day 1: 10mg PO q6 hr day 2: 10mg PO q8 hr day 3: 10mg PO q12 hr day 4: 10mg PO qHS Continued naltrexone 50 mg tablet 50 mg PO DAILY Qty: 30 0RF omeprazole 20 mg capsule,delayed release(DR/EC) 20 mg PO DAILY PRN (Reason: heartburn) Qty: 90 1RF atorvastatin 40 mg tablet 40 mg PO QHS Qty: 90 3RF Discharge Instructions Instructions: Alcohol Withdrawal (ED) Additional Instructions: Please contact your primary care physician to arrange follow-up. Please follow-up with outpatient resources that were provided by [facility] recovery unit operator. Return to the ER immediately for any worsening or new concerning symptoms. Referrals: [facility] [Outside] Ross Pugh DO [Primary Care Provider] - Medical Decision Making 1025 ---52 year-old male who suffers from alcohol use disorder, here with alcohol withdrawal seeking treatment. Patient has had alcohol binge over the past 3 weeks. He is now motivated to stop. Patient notes feeling dehydrated. Will give IV fluid bolus. SBIRT screener to engage patient and I have consulted recovery unit operator as well. --patient was seen by recovery unit operator and aspirate screener. Contact information for outpatient resources were provided. Labs reviewed: Normal LFTs. No significant electrolyte abnormalities. Ethyl alcohol level 197. 1435 -- Patient was treated with Ativan 1 mg IV and had significant improvement in anxiety and symptoms. Plan will be to treat with diazepam taper. Discharge plan was reviewed with the patient. Usual customary discharge instructions were reviewed. Lab Data Labs: Laboratory Tests Range/Units 08/18/22 08/18/22 08/18/22 10:05 10:05 10:05 WBC (4.4-10.8) 10^3/uL 4.74 RBC (4.36-5.78) 10^6/uL 5.39 Hgb (13.5-17.5) g/dL 16.9 Hct (40.0-50.0) % 48.6 MCV (80-95) fL 90 MCH (27.0-33.0) pg 31.4 MCHC (32.0-36.0) % 34.8 RDW (11.8-14.1) % 12.3 Plt Count (130-400) 10^3/uL 217 MPV (8.0-11.0) fL 10.3 Immature Gran % 1.9 Neutrophils % 52.4 Lymphocytes % 32.7 Monocytes % 10.5 Eosinophils % 1.7 Basophils % 0.8 Nucleated RBC % (0.0-0.3) % 0.0 Absolute Neutrophils (1.2-6.7) 10^3/uL 2.48 Absolute Lymphocytes (1.2-3.4) 10^3/uL 1.55 Absolute Monocytes (0.1-0.8) 10^3/uL 0.50 Absolute Eosinophils (0.0-0.7) 10^3/uL 0.08 Absolute Basophils (0.0-0.2) 10^3/uL 0.04 Sodium (136-145) mmol/L 144 Potassium (3.5-5.1) mmol/L 3.7 Chloride (98-107) mmol/L 105 Carbon Dioxide (21.0-32.0) mmol/L 31.9 Anion Gap (3-11) mmol/L 7.1 BUN (7-18) mg/dL 14 Creatinine (0.70-1.30) mg/dL 1.0 Est GFR (CKD-EPI 2020) (mL/min/1.73m2) 90.00 Glucose (74-106) mg/dL 114 H Calcium (8.5-10.1) mg/dL 8.4 L Magnesium Cancelled 2.1 Total Bilirubin (0.2-1.0) mg/dL 0.5 AST (15-37) U/L 37 ALT (16-63) U/L 61 Alkaline Phosphatase (46-116) U/L 69 Total Protein (6.4-8.2) g/dL 7.3 Albumin (3.4-5.0) g/dL 4.0 Ethyl Alcohol Cancelled 197.0 H HPI General Mode of arrival: ambulatory. Date/Time Provider Initiated Documentation: 08/18/22 09:53. Limitations to Documentation: no limitations. Information obtained by: patient. HPI Narrative: 52-year-old male with history of alcohol abuse, here with alcohol withdrawal seeking detox. Patient notes he has been drinking heavily over the past 3 weeks and is now motivated to stop drinking. Patient states over the past year he has been doing well and maintaining sobriety except for a short binge in May and this most recent binge. Last drink was at 3 AM. Patient notes he has had withdrawal in the past. He states he does not get shaky. He typically has a period of 24 hours with hypertension and tachycardia with anxiety. He notes he feels dehydrated today. He states he has not been drinking enough water over the past few weeks. Withdrawal is currently moderate to severe with no modifiers. He has no associate abdominal pain. Related Data Home Medications Medication Instructions Recorded Confirmed atorvastatin 40 mg tablet 40 mg PO QHS #90 tabs 02/14/22 06/17/22 naltrexone 50 mg tablet 50 mg PO DAILY #30 tabs 05/11/22 06/17/22 omeprazole 20 mg capsule,delayed 20 mg PO DAILY PRN heartburn #90 05/11/22 06/17/22 release caps diazepam 10 mg tablet See Rx Instructions .Route 08/18/22 .COMPLEX #10 tabs Previous Rx's Medication Instructions Recorded atorvastatin 40 mg tablet 40 mg PO QHS #90 tabs 02/14/22 naltrexone 50 mg tablet 50 mg PO DAILY #30 tabs 05/11/22 omeprazole 20 mg capsule,delayed 20 mg PO DAILY PRN heartburn #90 05/11/22 release caps diazepam 10 mg tablet See Rx Instructions .Route 08/18/22 .COMPLEX #10 tabs Allergies Allergy/AdvReac Type Severity Reaction Status Date / Time Antihistamines - Alkylamine Allergy Unknown Verified 06/17/22 17:44 sertraline Allergy Unknown Verified 06/17/22 17:44 Sulfa (Sulfonamide Allergy Unknown Verified 08/18/22 09:45 Antibiotics) sulfamethoxazole Allergy Unknown 03/08/18-pt Verified 08/18/22 09:45 [From Bactrim] reports had a blister on his lip trimethoprim [From Bactrim] Allergy Unknown blister on Verified 06/17/22 17:44 mouth lisinopril AdvReac Intermediate Dry Cough Verified 08/18/22 09:45 General Stated Complaint: ETOHWithdr GREGORY: 3 Review of Systems All systems reviewed & are unremarkable except as noted in HPI and below Constitutional Constitutional: Denies fever(s) Cardiovascular Cardiovascular: Denies chest pain Respiratory Respiratory: Denies cough PFSH All Active Problems (Updated 08/18/22 @ 14:22 by Arik Ruby MD) Alcohol withdrawal (Acute) Alcohol use (Acute 09/21/08) pos FH (mom); daily exceeds guidelines Anxiety state (Chronic 08/22/92) Dr Dykes consult; chronic prn alprazolam; ?EtOH, exercise rx, ? 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 risk 5% (12/2011); goal LDL<130 Labile hypertension (Acute 02/24/13) high in PM, good in office in AM; elevated at surgical supervisor's Overweight (Acute 09/21/08) Solar keratosis (Acute 12/04/14) Family History Mother Age: 80 ETOH abuse Father Age: 84 Diabetes Myocardial infarction Sister No problems noted. Sister No problems noted. 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 Pets and animals: Yes Pets and animals: cat(s) Sexually active: Yes Do you think of yourself as: straight/heterosexual Current gender identity: male What is your relationship status?: How often do you talk on the phone with friends or family?: three or more times per week How often do you get together with friends or relatives?: three or more times per week How often do you attend voodoo or tenriism services?: decline to answer Do you belong to any clubs or organized social groups?: yes Panel score (0-1 are the most socially isolated patients): 3 What type of physical activity do you participate in: bicycling, weight lifting and running Duration: 60-90 minutes/day Frequency: daily Kala/Moravian: None Special kala needs: No Seatbelt use: sometimes Helmet use: Yes Drive intox or ride w/intox regional dedicated truck driver: No Do you feel safe at home: Yes Do you feel safe in your relationship?: No Exam Const General: cooperative and no acute distress Orientation: alert and awake HENMT Mouth: mucous membranes dry Eyes Conjunctivae: normal conjunctivae Sclera: normal sclerae Neck Neck: trachea midline and supple Resp Auscultation: clear to auscultation bilaterally, no rales, no rhonchi and no wheezes Cardio Rate: tachycardic Rhythm: regular rhythm GI Palpation: soft, not firm, no guarding, no masses, not rigid and nontender Skin General skin exam: no rashes or lesions noted Neuro General: patient alert, patient awake, patient oriented x3 and tone normal Extrem General: no edema Psych Appearance: grossly normal Mental Status: mental status grossly normal Speech and Movement: speech and movement normal Affect: anxious affect Course Vital Signs Vital signs: Vital Signs Temperature 36.5 C 08/18/22 09:39 Pulse 101 H 08/18/22 09:39 Respiratory Rate 18 08/18/22 09:39 Blood Pressure 160/103 H 08/18/22 09:39 Pulse Oximetry 96 08/18/22 09:39 Temperature 36.5 C 08/18/22 09:39 Temperature Source Skin 08/18/22 09:39 Pulse 101 H 08/18/22 09:39 Respiratory Rate 18 08/18/22 09:39 Respiratory Effort 08/18/22 09:43 Blood Pressure 160/103 H 08/18/22 09:39 Blood Pressure Position Sitting 08/18/22 09:39 Pulse Oximetry 96 08/18/22 09:39 Oxygen Delivery Method Room Air 08/18/22 09:39 Oxygen Flow Rate 0 08/18/22 09:39 Pain Level 5 08/18/22 09:39 PAWSS Have you Been Recently Intoxicated or Drunk Within the Last 30 days?: Yes Have you Ever Experienced Previous Episodes of Alcohol Withdrawal?: Yes Have you ever Experienced Withdrawal Seizures?: No Have you ever Experienced Delirium Tremens(DT)s?: No Have you ever undergone Alcohol Rehabilitation Treatment (i.e, inpt ot outpatient treatment programs)?: Yes Have you ever Combined Alcohol with other Downers within the last 90 days?: Yes Have you ever Combined Alcohol with any other Substance of Abuse during the last 90 days?: No Positive Blood Alcohol level on Presentation? [PCS.BAL]: No Evidence of Increased Autonomic Activity (i.e. HR>120, tremor, sweating, agitation, nausea)?: Yes Result: 4
[2022-08-18 10:18] VITALS: BP 148/107; PULSE 94; RESP 18; TEMP 37; O2SAT 92
[2022-08-18 10:30] LABS: Abs Immature Grans 0.09 10^3/uL (0.0-0.06); Absolute Basophil Count 0.04 10^3/uL (0.0-0.2); Absolute Eosinophil Count 0.08 10^3/uL (0.0-0.7); Absolute Lymphocyte Count 1.55 10^3/uL (1.2-3.4); Absolute Neutrophil Count 2.48 10^3/uL (1.2-6.7); Basophils % 0.8; Eosinophils % 1.7; HCT 48.6 % (40.0-50.0); HGB 16.9 g/dL (13.5-17.5); Immature Grans % 1.9; Lymphocytes % 32.7; MCH 31.4 pg (27.0-33.0); MCHC 34.8 % (32.0-36.0); MCV 90 fL (80-95); MPV 10.3 fL (8.0-11.0); Monocytes % 10.5; Neutrophils % 52.4; Platelet Count 217 10^3/uL (130-400); RBC 5.39 10^6/uL (4.36-5.78); RDW 12.3 % (11.8-14.1); RDW-SD 40.1 fL; WBC 4.74 10^3/uL (4.4-10.8)
[2022-08-18] MEDS: Lactated Ringers 1,000 ML 1000 ML IV (10:42)
[2022-08-18 10:48] LABS: ALT 61 U/L (16-63); AST 37 U/L (15-37); Alkaline Phosphatase 69 U/L (46-116); Anion Gap 7.1 mmol/L (3-11); BUN 14 mg/dL (7-18); Bilirubin, Total 0.5 mg/dL (0.2-1.0); CO2 31.9 mmol/L (21.0-32.0); Calcium 8.4 mg/dL (8.5-10.1); Chloride 105 mmol/L (98-107); Glucose 114 mg/dL (74-106); Magnesium 2.1 mg/dL (1.8-2.4); Potassium 3.7 mmol/L (3.5-5.1); Sodium 144 mmol/L (136-145); Total Protein 7.3 g/dL (6.4-8.2)
[2022-08-18 11:02] VITALS: O2SAT 95
[2022-08-18 11:04] VITALS: BP 138/93; PULSE 88; PULSE 92; RESP 16; O2SAT 95
[2022-08-18 13:15] VITALS: BP 144/97; PULSE 90; RESP 18; TEMP 37; O2SAT 95
[2022-08-18] MEDS: LORazepam 2 MG/ML VIAL 1 MG IVP (14:08)
[2022-08-18] MEDS: THIAMINE 100 MG in Normal Saline 100 ML 200 MG IVPB (14:10)
[2022-08-18 15:09] VITALS: BP 159/97; PULSE 93; RESP 18; TEMP 36.8; O2SAT 94
== END 2022-08-18 15:13 | disposition home or self-care (01) ==
PROVIDERS: Emergency Provider Student in an Organized Health Care Education/Training Program; PCP Family Medicine
DX: F10.229 Alcohol dependence with intoxication, unspecified (principal); Y90.6 Blood alcohol level of 120-199 mg/100 ml
CPT/HCPCS: 80053; 96361; 96365; 96375; 99284; 80320; 83735; 85025; 99283; J2060

== ENCOUNTER 2022-10-15 09:46 | Emergency (ER) | payer BC, SELFPAY ==
[2022-10-15] VITALS (17 sets, daily range): BP systolic 137–166; BP diastolic 91–103; PULSE 83–102; RESP 14–22; TEMP 36.6; O2SAT 84–96
--- NOTE | 2022-10-15 10:00 | RT.EKG_ITS ---
APPROVED REPORT Exam: Resting ECG Reason for Exam: tachycardia Patient Location: E HR:94 bpm ECG Measurements Heart Rate 94 AXIS ME 170 P 67 QRSd 83 QRS -29 QT 353 T 46 QTc 441 Conclusion Sinus rhythm...normal P axis, V-rate 60- 99
--- NOTE | 2022-10-15 10:03 | W.ED.GENAD ---
Discharge Plan Disposition Patient Disposition: Home Condition: Improving Discharge Details Clinical Impression: Alcohol use, Anxiety state Primary Care Provider: Ross Pugh ED Provider: Nithya Duarte Home Meds and New Rx's Prescriptions: New chlordiazepoxide HCl 25 mg capsule 25 mg PO Q6-12H PRN (Reason: alcohol withdrawal) Qty: 11 0RF Rx Instructions: Day 1:Take one tab 4 times a day as needed for symptoms. Day 2: Take one tab 3 times a day as needed. Day 3: Take one tab twice daily as needed. Then take one tab daily as needed x 2 days. Continued atorvastatin 40 mg tablet 40 mg PO QHS Qty: 90 3RF No Action alprazolam 1 mg tablet 1 mg PO QHS PRN (Reason: sleep) Qty: 30 0RF Discharge Instructions Instructions: Anxiety (ED), Alcohol Use Disorder (ED) Additional Instructions: Please follow-up as discussed by the defensive line coach and SBIRT Counselor, please take the medications as prescribed. You may take the Librium 1 tablet up to 4 times a day as needed for symptoms. You do taper it daily for the next 5 days. Please do not drink alcohol while on this medication. [facility] [address] [place] [address] Email [email or web address] Telephone / Fax Number Follow up with primary care provider in 3-5 days. Return to ED sooner if any worsening or concerns. Increase oral fluids. Referrals: Ross Pugh DO [Primary Care Provider] - 1 week Discharge Data Discharge Date/Time-TO BE ENTERED AT DEPARTURE: 10/15/22 11:39 Medical Decision Making 52-year-old male presents to the ER with a chief complaint of anxiety and anticipated alcohol withdrawal. He reports that he has been on weeks long binge with liquor of daily alcohol use. He reports that his last alcoholic drink was at 6 this morning. He denies any pain anywhere no diarrhea no vomiting, he does have slight blurry vision, no significant tremors noted, he has gone into alcohol withdrawal in the past but has not had alcohol withdrawal seizures. He does report being in inpatient rehab facility in the past in [place]. Past medical history includes hyperlipidemia, labile hypertension, alcoholism. He is slightly hypertensive and slightly tachycardic upon arrival no delirium tremens at this time. Initial CIWA score is approximately 6, work-up ordered. Pawss score 7, defensive line coach paged. SBIRT sales enablement specialist to speak with patient. EKG ordered and performed by junior staff accountant. We will consider Librium taper after defensive line coach speaks with patient we will continue to observe. Patient is willing and open to rehab he has spoken with Ross de leon couple weeks ago. I did discuss options such as a Librium taper with him he verbalizes understanding. Liter of normal saline 1 mg p.o. Ativan ordered. Based on CIWA score. coach cleaner has been at bedside to speak with patient. Heart rate has improved to 85, blood pressure 150/94 O2 sat 95%, CMP shows glucose 119 AST slightly elevated at 42 ALT 74, ethyl alcohol 218 initial troponin less than 50 remainder of the labs are largely within normal limits. Patient is speaking with the SBIRT counselor at this time. Plan is to discharge patient with Librium taper which was sent to his pharmacy on file [facility]. This text was generated using [employer] Android dictation system, please disregard any oddities of phrase or misspellings. Patient remained hemodynamically stable throughout entire stay, vital signs stable. Medical Records Medical records reviewed: Yes I reviewed the patient's medical records. Lab Data Lab results reviewed: Yes I reviewed the patient's lab results. Labs: Laboratory Tests Range/Units 10/15/22 10/15/22 10:12 10:12 WBC (4.4-10.8) 10^3/uL 4.32 L RBC (4.36-5.78) 10^6/uL 5.40 Hgb (13.5-17.5) g/dL 16.8 Hct (40.0-50.0) % 48.3 MCV (80-95) fL 89 MCH (27.0-33.0) pg 31.1 MCHC (32.0-36.0) % 34.8 RDW (11.8-14.1) % 12.3 Plt Count (130-400) 10^3/uL 208 MPV (8.0-11.0) fL 9.9 Immature Gran % 0.9 Neutrophils % 57.1 Lymphocytes % 31.0 Monocytes % 8.6 Eosinophils % 1.2 Basophils % 1.2 Nucleated RBC % (0.0-0.3) % 0.0 Absolute Neutrophils (1.2-6.7) 10^3/uL 2.47 Absolute Lymphocytes (1.2-3.4) 10^3/uL 1.34 Absolute Monocytes (0.1-0.8) 10^3/uL 0.37 Absolute Eosinophils (0.0-0.7) 10^3/uL 0.05 Absolute Basophils (0.0-0.2) 10^3/uL 0.05 Sodium (136-145) mmol/L 144 Potassium (3.5-5.1) mmol/L 3.7 Chloride (98-107) mmol/L 105 Carbon Dioxide (21.0-32.0) mmol/L 30.2 Anion Gap (3-11) mmol/L 8.8 BUN (7-18) mg/dL 11 Creatinine (0.70-1.30) mg/dL 1.1 Est GFR (CKD-EPI 2020) (mL/min/1.73m2) 80.27 Glucose (74-106) mg/dL 119 H Calcium (8.5-10.1) mg/dL 8.6 Magnesium (1.8-2.4) mg/dL 2.0 Total Bilirubin (0.2-1.0) mg/dL 0.7 AST (15-37) U/L 42 H ALT (16-63) U/L 74 H Alkaline Phosphatase (46-116) U/L 69 Troponin I (<or=60) ng/L < 50 Total Protein (6.4-8.2) g/dL 7.4 Albumin (3.4-5.0) g/dL 4.4 Ethyl Alcohol (<10) mg/dL 218.2 H HPI General Mode of arrival: ambulatory. Date/Time Provider Initiated Documentation: 10/15/22 09:47. Limitations to Documentation: no limitations. Information obtained by: patient, RN notes reviewed and old records reviewed. HPI Narrative: 52-year-old male presents to the ER with a chief complaint of anxiety and anticipated alcohol withdrawal. He reports that he has been on weeks long binge with liquor of daily alcohol use. He reports that his last alcoholic drink was at 6 this morning. He denies any pain anywhere no diarrhea no vomiting, he does have slight blurry vision, no significant tremors noted, he has gone into alcohol withdrawal in the past but has not had alcohol withdrawal seizures. He does report being in inpatient rehab facility in the past in [place]. Past medical history includes hyperlipidemia, labile hypertension, alcoholism. He is slightly hypertensive and slightly tachycardic upon arrival no delirium tremens at this time. Related Data Home Medications Medication Instructions Recorded Confirmed atorvastatin 40 mg tablet 40 mg PO QHS #90 tabs 02/14/22 10/15/22 alprazolam 1 mg tablet 1 mg PO QHS PRN sleep #30 tabs 08/21/22 10/15/22 chlordiazepoxide HCl 25 mg capsule 25 mg PO Q6-12H PRN alcohol 10/15/22 withdrawal #11 caps Previous Rx's Medication Instructions Recorded atorvastatin 40 mg tablet 40 mg PO QHS #90 tabs 02/14/22 alprazolam 1 mg tablet 1 mg PO QHS PRN sleep #30 tabs 08/21/22 chlordiazepoxide HCl 25 mg capsule 25 mg PO Q6-12H PRN alcohol 10/15/22 withdrawal #11 caps Allergies Allergy/AdvReac Type Severity Reaction Status Date / Time Sulfa (Sulfonamide Allergy Unknown Verified 10/15/22 10:03 Antibiotics) sulfamethoxazole Allergy Unknown 03/08/18-pt Verified 10/15/22 10:03 [From Bactrim] reports had a blister on his lip trimethoprim [From Bactrim] Allergy Unknown blister on Verified 10/15/22 10:03 mouth lisinopril AdvReac Intermediate Dry Cough Verified 10/15/22 10:03 General Stated Complaint: Anxiety GREGORY: 3 Review of Systems All systems reviewed & are unremarkable except as noted in HPI and below Constitutional Constitutional: Denies chills and Denies fever(s) Cardiovascular Cardiovascular: Denies chest pain, Reports palpitations (Reports palpitations), Denies dyspnea and Denies dyspnea on exertion Respiratory Respiratory: Denies dyspnea and Denies dyspnea on exertion Gastrointestinal Gastrointestinal: Denies abdominal pain, Denies melena, Denies hematochezia, Denies coffee ground emesis, Denies nausea, Denies vomiting and Denies hematemesis Neurologic Neurologic: Reports other visual disturbances Psychiatric Psychiatric: Reports anxiety, Denies homicidal ideation and Denies suicidal ideation Endocrine Endocrine: Reports palpitations (Reports palpitations) PFSH All Active Problems (Updated 10/15/22 @ 11:18 by Nithya Duarte NP) Alcohol use (Acute 09/21/08) pos FH (mom); daily exceeds guidelines Anxiety state (Chronic 08/22/92) Dr Dykes consult; chronic prn alprazolam; ?EtOH, exercise rx, ? 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 risk 5% (12/2011); goal LDL<130 Labile hypertension (Acute 02/24/13) high in PM, good in office in AM; elevated at canvassing manager's Overweight (Acute 09/21/08) Solar keratosis (Acute 12/04/14) Family History Mother Age: 80 ETOH abuse Father Age: 84 Diabetes Myocardial infarction Sister No problems noted. Sister No problems noted. 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 Pets and animals: Yes Pets and animals: cat(s) Sexually active: Yes Do you think of yourself as: straight/heterosexual Current gender identity: male What is your relationship status?: How often do you talk on the phone with friends or family?: three or more times per week How often do you get together with friends or relatives?: three or more times per week How often do you attend faith or adventism services?: decline to answer Do you belong to any clubs or organized social groups?: yes Panel score (0-1 are the most socially isolated patients): 3 What type of physical activity do you participate in: bicycling, weight lifting and running Duration: 60-90 minutes/day Frequency: daily Kala/Zoroastrian: None Special kala needs: No Seatbelt use: sometimes Helmet use: Yes Drive intox or ride w/intox bobcat driver/labor: No Do you feel safe at home: Yes Do you feel safe in your relationship?: Yes Exam Narrative Exam Narrative: Constitutional: Alert and oriented x3. Appears stated age. Normal body habitus. Head: Normocephalic, no trauma. Eyes: Pupils PERRL, Red reflex noted, EOM's intact. Eyelids symmetrical without lesions, discharge, or swelling. ENT: Bilateral TM's WNL, External ear normal to inspection, no mastoid TTP, swelling, or erythema, Nasal turbinates WNL, no nasal discharge. Normal dentition, Posterior pharynx WNL, no exudate. Chest: RRR, Normal S1, S2, distal pulses intact. Resp: Lungs clear to auscultation bilaterally, no wheezes, rales, or rhonchi. Abdomen: Soft, non-distended, Normoactive bowel sounds all 4 quads. Musculoskeletal: Normal gait, 5/5 strength to all four extremities. Skin: No suspicious rashes or lesions. Capillary refill less than 2 sec. Neurologic: Cranial nerves II-XII intact. Alert and oriented x 3. Motor: No deficits noted. Sensory: Intact bilaterally all 4 extremities. Hematologic/Lymphatic: No ecchymosis, no lymphadenopathy. Feet Course Vital Signs Vital signs: Vital Signs Temperature 36.6 C 10/15/22 09:56 Pulse 102 H 10/15/22 09:56 Respiratory Rate 18 10/15/22 09:56 Blood Pressure 151/103 H 10/15/22 09:56 Pulse Oximetry 94 10/15/22 09:56 Temperature 36.6 C 10/15/22 09:56 Temperature Source Oral 10/15/22 09:56 Pulse 102 H 10/15/22 09:56 Respiratory Rate 18 10/15/22 09:56 Respiratory Effort Normal, Non-Labored 10/15/22 09:54 Blood Pressure 151/103 H 10/15/22 09:56 Pulse Oximetry 94 10/15/22 09:56 Oxygen Delivery Method Room Air 10/15/22 09:56 Oxygen Flow Rate 0 10/15/22 09:56 PAWSS Have you Been Recently Intoxicated or Drunk Within the Last 30 days?: Yes Have you Ever Experienced Previous Episodes of Alcohol Withdrawal?: Yes Have you ever Experienced Withdrawal Seizures?: No Have you ever Experienced Delirium Tremens(DT)s?: Yes Have you ever undergone Alcohol Rehabilitation Treatment (i.e, inpt ot outpatient treatment programs)?: Yes Have you ever Experienced Blackouts?: Yes Have you ever Combined Alcohol with other Downers within the last 90 days?: Yes Have you ever Combined Alcohol with any other Substance of Abuse during the last 90 days?: No Positive Blood Alcohol level on Presentation? [PCS.BAL]: Yes Evidence of Increased Autonomic Activity (i.e. HR>120, tremor, sweating, agitation, nausea)?: Yes Result: 7
[2022-10-15 10:21] LABS: Abs Immature Grans 0.04 10^3/uL (0.0-0.06); Absolute Basophil Count 0.05 10^3/uL (0.0-0.2); Absolute Eosinophil Count 0.05 10^3/uL (0.0-0.7); Absolute Lymphocyte Count 1.34 10^3/uL (1.2-3.4); Absolute Monocyte Count 0.37 10^3/uL (0.1-0.8); Absolute Neutrophil Count 2.47 10^3/uL (1.2-6.7); Basophils % 1.2; Eosinophils % 1.2; HCT 48.3 % (40.0-50.0); HGB 16.8 g/dL (13.5-17.5); Immature Grans % 0.9; MCH 31.1 pg (27.0-33.0); MCHC 34.8 % (32.0-36.0); MCV 89 fL (80-95); MPV 9.9 fL (8.0-11.0); Monocytes % 8.6; Neutrophils % 57.1; Platelet Count 208 10^3/uL (130-400); RDW 12.3 % (11.8-14.1); RDW-SD 40.2 fL; WBC 4.32 10^3/uL (4.4-10.8)
[2022-10-15] MEDS: Normal Saline 1,000 ML 1000 ML IV (10:26)
[2022-10-15] MEDS: LORazepam 1 MG TAB PO/SL (10:26)
[2022-10-15 10:56] LABS: ALT 74 U/L (16-63); AST 42 U/L (15-37); Albumin 4.4 g/dL (3.4-5.0); Alkaline Phosphatase 69 U/L (46-116); Anion Gap 8.8 mmol/L (3-11); BUN 11 mg/dL (7-18); Bilirubin, Total 0.7 mg/dL (0.2-1.0); CO2 30.2 mmol/L (21.0-32.0); CREATININE 1.1 mg/dL (0.70-1.30); Calcium 8.6 mg/dL (8.5-10.1); Chloride 105 mmol/L (98-107); ETHANOL BLOOD 218.2 mg/dL (<10); Estimated GFR 80.27 (mL/min/1.73m2); Glucose 119 mg/dL (74-106); Potassium 3.7 mmol/L (3.5-5.1); Sodium 144 mmol/L (136-145); Total Protein 7.4 g/dL (6.4-8.2); Troponin I < 50 ng/L (<or=60)
== END 2022-10-15 11:39 | disposition home or self-care (01) ==
PROVIDERS: Emergency Provider Registered Nurse Emergency; PCP Family Medicine
DX: F41.1 Generalized anxiety disorder (principal); F10.90 Alcohol use, unspecified, uncomplicated; I10 Essential (primary) hypertension; R74.01 Elevation of levels of liver transaminase levels; R00.0 Tachycardia, unspecified
CPT/HCPCS: 80053; 93005; 96360; 99284; 80320; 83735; 84484; 85025; 93010; J3490

== ENCOUNTER 2023-02-23 10:39 | Inpatient (IN) | payer BC, SELFPAY ==
[2023-02-23] VITALS (57 sets, daily range): BP systolic 127–164; BP diastolic 73–109; PULSE 78–102; RESP 12–22; TEMP 37.3; O2SAT 90–97
--- NOTE | 2023-02-23 11:24 | ED.GENADUL_ITS ---
Discharge Plan Disposition Patient Disposition: Admit to [facility] Condition: Serious Discharge Details Clinical Impression: Alcohol withdrawal Admit Date/Time: 02/23/23 16:03 Admit Provider: Larissa Walter Attending Provider: Larissa Walter Primary Care Provider: Ross Pugh ED Provider: Arik Ruby Discharge Data Discharge Date/Time-TO BE ENTERED AT DEPARTURE: 02/23/23 16:56 Medical Decision Making 1125 ---52 year-old male who suffers from alcohol use disorder, here with alcohol withdrawal seeking treatment. Patient has drinking fairly regularly over the past few months. He is now motivated to stop. Patient notes feeling dehydrated. Patient is tachycardic and hypertensive. His CIWA is 6. Patient notes that he last consumed a drink 4-5 hours ago and feels that if he can get through the next 6 hours, he will do well. Patient has been [facility] for similar presentation and did well with outpatient benzodiazepine course. I request recovery rn. Consider electrolyte abnormalities. Will check screening labs. I will treat anxiety and withdrawal with ativan 1mg IV. Will give IVF fluid bolus and thiamine IV. --Patient reassessed and noted significant improvement with initial dose of Ativan. Symptoms returning after about an hour. Patient redosed with Ativan 1 mg p.o. -- Patient was reassessed and continues to have symptoms of severe withdrawal including anxiety and generally not feeling well. Patient remains hypertensive. I called and spoke with hospitalist on-call, Dr. Walter, discussed ED presentation and course, she will admit the patient for further treatment. Lab Data Lab results reviewed: Yes I reviewed the patient's lab results. Labs: Laboratory Tests Range/Units 02/23/23 02/23/23 02/23/23 11:30 11:30 11:30 WBC (4.4-10.8) 10^3/uL 5.26 RBC (4.36-5.78) 10^6/uL 5.45 Hgb (13.5-17.5) g/dL 17.6 H Hct (40.0-50.0) % 49.7 MCV (80-95) fL 91 MCH (27.0-33.0) pg 32.3 MCHC (32.0-36.0) % 35.4 RDW (11.8-14.1) % 12.1 Plt Count (130-400) 10^3/uL 241 MPV (8.0-11.0) fL 9.8 Immature Gran % 1.0 Neutrophils % 56.5 Lymphocytes % 31.6 Monocytes % 9.3 Eosinophils % 0.6 Basophils % 1.0 Nucleated RBC % (0.0-0.3) % 0.0 Absolute Neutrophils (1.2-6.7) 10^3/uL 2.98 Absolute Lymphocytes (1.2-3.4) 10^3/uL 1.66 Absolute Monocytes (0.1-0.8) 10^3/uL 0.49 Absolute Eosinophils (0.0-0.7) 10^3/uL 0.03 Absolute Basophils (0.0-0.2) 10^3/uL 0.05 Sodium (136-145) mmol/L 144 Potassium (3.5-5.1) mmol/L 3.7 Chloride (98-107) mmol/L 103 Carbon Dioxide (21.0-32.0) mmol/L 30.1 Anion Gap (3-11) mmol/L 10.9 BUN (7-18) mg/dL 11 Creatinine (0.70-1.30) mg/dL 1.0 Est GFR (CKD-EPI 2020) (mL/min/1.73m2) 90.00 Glucose (74-106) mg/dL 123 H Calcium (8.5-10.1) mg/dL 8.8 Magnesium (1.8-2.4) mg/dL 2.0 Total Bilirubin (0.2-1.0) mg/dL 0.6 AST (15-37) U/L 54 H ALT (16-63) U/L 88 H Alkaline Phosphatase (46-116) U/L 67 Total Protein (6.4-8.2) g/dL 8.0 Albumin (3.4-5.0) g/dL 4.6 Urine Opiates Screen (Negative) Negative Urine Methadone Screen (Negative) Negative Ur Barbiturates Screen (Negative) Negative Ur Tricyclics Screen (Negative) Negative Ur Amphetamines Screen (Negative) Negative U Benzodiazepines Scrn (Negative) Negative Urine Cocaine Screen (Negative) Negative Ur THC Screen (Negative) Negative Ethyl Alcohol (<10) mg/dL 222.0 H HPI General Mode of arrival: ambulatory . Date/Time Provider Initiated Documentation: 02/23/23 10:42 . Limitations to Documentation: no limitations . Information obtained by: patient . HPI Narrative: 52-year-old male with history of alcohol use disorder presents with concern for alcohol withdrawal. Patient notes he has been drinking fairly regularly over the past 4 to 5 months. He notes he is motivated to stop drinking and feeling a bit overwhelmed. He last consumed whiskey about 4 to 5 hours ago. Patient feels quite anxious. He is interested in outpatient resources. Related Data Home Medications Medication Instructions Recorded Confirmed chlordiazepoxide HCl 25 mg capsule 25 mg PO Q6-12H PRN alcohol 10/15/22 withdrawal #11 caps alprazolam 1 mg tablet 1 mg PO QHS PRN sleep #30 tabs 10/16/22 02/23/23 atorvastatin 40 mg tablet 40 mg PO QHS #90 tabs 02/09/23 02/23/23 Previous Rx's Medication Instructions Recorded chlordiazepoxide HCl 25 mg capsule 25 mg PO Q6-12H PRN alcohol 10/15/22 withdrawal #11 caps alprazolam 1 mg tablet 1 mg PO QHS PRN sleep #30 tabs 10/16/22 atorvastatin 40 mg tablet 40 mg PO QHS #90 tabs 02/09/23 Allergies Allergy/AdvReac Type Severity Reaction Status Date / Time Sulfa (Sulfonamide Allergy Unknown Verified 02/23/23 10:45 Antibiotics) sulfamethoxazole Allergy Unknown 03/08/18-pt Verified 02/23/23 10:45 [From Bactrim] reports had a blister on his lip trimethoprim [From Bactrim] Allergy Unknown blister on Verified 02/23/23 10:45 mouth lisinopril AdvReac Intermediate Dry Cough Verified 02/23/23 10:45 General Stated Complaint: ETOHWithdr GREGORY: 3 Review of Systems All systems reviewed & are unremarkable except as noted in HPI and below Constitutional Constitutional: Denies fever(s) Cardiovascular Cardiovascular: Denies chest pain Psychiatric Psychiatric: Reports as per HPI PFSH All Active Problems (Updated 02/24/23 @ 09:56 by Arik Ruby MD) Alcohol withdrawal (Acute) Alcohol withdrawal (Acute) Discharge planning issues (Acute) DVT prophylaxis (Acute) Alcohol use (Acute 09/21/08) pos FH (mom); daily exceeds guidelines Anxiety state (Chronic 08/22/92) Dr Dykes consult; chronic prn alprazolam; ?EtOH, exercise rx, ? 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 risk 5% (12/2011); goal LDL<130 Labile hypertension (Chronic 02/24/13) high in PM, good in office in AM; elevated at recruiting scheduler's Overweight (Acute 09/21/08) Solar keratosis (Acute 12/04/14) Surgical History (Updated 02/23/23 @ 18:55 by Larissa Walter MD) No pertinent past surgical history Family History (Updated 02/23/23 @ 18:56 by Larissa Walter MD) Mother Age: 80 ETOH abuse Father Age: 84 Diabetes Myocardial infarction Heart disease Hypertension Other Hyperlipidemia 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 Pets and animals: Yes Pets and animals: cat(s) Sexually active: Yes Do you think of yourself as: straight/heterosexual Current gender identity: male What is your relationship status?: How often do you talk on the phone with friends or family?: three or more times per week How often do you get together with friends or relatives?: three or more times per week How often do you attend buddhism or denominational services?: decline to answer Do you belong to any clubs or organized social groups?: yes Panel score (0-1 are the most socially isolated patients): 3 What type of physical activity do you participate in: bicycling, weight lifting and running Duration: 60-90 minutes/day Frequency: daily Kala/Yarsanism: None Special kala needs: No Seatbelt use: sometimes Helmet use: Yes Drive intox or ride w/intox snaker tractor 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 Exam Const General: cooperative HENMT Mouth: mucous membranes dry Eyes Conjunctivae: normal conjunctivae Sclera: normal sclerae Neck Neck: trachea midline and supple Resp Effort & Inspection: normal respiratory effort Auscultation: clear to auscultation bilaterally, no rales, no rhonchi and no wheezes Cardio Rate: tachycardic Rhythm: regular rhythm GI Palpation: soft, not firm, no guarding, no masses, not rigid and nontender Skin General skin exam: no rashes or lesions noted Neuro General: patient alert, patient awake and tone normal Cognition: normal cognition Speech: speech normal Gait: normal gait Motor: muscle tone normal throughout and strength 5/5 throughout Other: no significant tremor Extrem General: no edema Psych Appearance: grossly normal Mental Status: mental status grossly normal Mood: anxious mood Affect: anxious affect Attitude: cooperative Thought Process: normal Thought Content: normal Insight: insight good Judgment: judgment good Course Vital Signs Vital signs: Vital Signs Temperature 37.3 C 02/23/23 10:41 Pulse 98 H 02/23/23 10:41 Respiratory Rate 18 02/23/23 10:41 Blood Pressure 163/107 H 02/23/23 10:41 Pulse Oximetry 97 02/23/23 10:41 Temperature 37.3 C 02/23/23 10:41 Temperature Source Skin 02/23/23 10:41 Pulse 98 H 02/23/23 10:41 Respiratory Rate 18 02/23/23 10:41 Respiratory Effort Normal, Non-Labored 02/23/23 10:46 Respiratory Pattern Normal 02/23/23 11:00 Blood Pressure 163/107 H 02/23/23 10:41 Blood Pressure Position Sitting 02/23/23 10:41 Pulse Oximetry 97 02/23/23 10:41 Oxygen Delivery Method Room Air 02/23/23 10:41 Oxygen Flow Rate 0 02/23/23 10:41 Pain Level 0 02/23/23 10:41 PAWSS Have you Been Recently Intoxicated or Drunk Within the Last 30 days?: Yes Have you Ever Experienced Previous Episodes of Alcohol Withdrawal?: Yes Have you ever Experienced Withdrawal Seizures?: No Have you ever Experienced Delirium Tremens(DT)s?: No Have you ever undergone Alcohol Rehabilitation Treatment (i.e, inpt ot outpatient treatment programs)?: Yes Have you ever Experienced Blackouts?: Yes Have you ever Combined Alcohol with other Downers within the last 90 days?: No Have you ever Combined Alcohol with any other Substance of Abuse during the last 90 days?: No Positive Blood Alcohol level on Presentation? [PCS.BAL]: Unable to Obtain Evidence of Increased Autonomic Activity (i.e. HR>120, tremor, sweating, agitation, nausea)?: Yes Result: 5
[2023-02-23] MEDS: THIAMINE 100 MG in Normal Saline 100 ML 200 MG IVPB (11:40)
[2023-02-23] MEDS: LORazepam 2 MG/ML VIAL 1 MG IVP (11:40)
[2023-02-23 11:41] LABS: Abs Immature Grans 0.05 10^3/uL (0.0-0.06); Absolute Basophil Count 0.05 10^3/uL (0.0-0.2); Absolute Eosinophil Count 0.03 10^3/uL (0.0-0.7); Absolute Lymphocyte Count 1.66 10^3/uL (1.2-3.4); Absolute Monocyte Count 0.49 10^3/uL (0.1-0.8); Absolute Neutrophil Count 2.98 10^3/uL (1.2-6.7); Eosinophils % 0.6; HCT 49.7 % (40.0-50.0); HGB 17.6 g/dL (13.5-17.5); Lymphocytes % 31.6; MCH 32.3 pg (27.0-33.0); MCHC 35.4 % (32.0-36.0); MCV 91 fL (80-95); MPV 9.8 fL (8.0-11.0); Monocytes % 9.3; Neutrophils % 56.5; Platelet Count 241 10^3/uL (130-400); RBC 5.45 10^6/uL (4.36-5.78); RDW 12.1 % (11.8-14.1); RDW-SD 40.3 fL; WBC 5.26 10^3/uL (4.4-10.8)
[2023-02-23] MEDS: Lactated Ringers 1,000 ML 1000 ML IV (11:41)
[2023-02-23 11:57] LABS: ALT 88 U/L (16-63); AST 54 U/L (15-37); Albumin 4.6 g/dL (3.4-5.0); Alkaline Phosphatase 67 U/L (46-116); Anion Gap 10.9 mmol/L (3-11); BUN 11 mg/dL (7-18); Bilirubin, Total 0.6 mg/dL (0.2-1.0); CO2 30.1 mmol/L (21.0-32.0); Calcium 8.8 mg/dL (8.5-10.1); Chloride 103 mmol/L (98-107); Glucose 123 mg/dL (74-106); Potassium 3.7 mmol/L (3.5-5.1); Sodium 144 mmol/L (136-145)
[2023-02-23 12:06] LABS: *AMPHETAMINES SCREEN URINE Negative (Negative); *BARBITURATES SCREEN URINE Negative (Negative); *BENZODIAZEPINES SCREEN URINE Negative (Negative); Cannabinoids THC Negative (Negative); Cocaine Screen,Urine Negative (Negative); METHADONE URINE SCREEN Negative (Negative); OPIATES URINE SCREEN Negative (Negative)
[2023-02-23 12:08] LABS: Tricyclic Antidepressants Negative (Negative)
[2023-02-23] MEDS: LORazepam 1 MG TAB PO (14:58)
--- NOTE | 2023-02-23 16:07 | W.PM.HP.N ---
Date of service: 02/23/23 Time of Service: 16:07 Assessment and Plan Assessment and plan (1) Alcohol withdrawal: Status: Acute Assessment and plan: Treat with prn doses of phenobarbital. Avoid loading with phenobrabital for now since he has received benzos in the ED; however, should symptoms escalate, this could be rethought. Also provide MVI, thiamine, check B12/folate levels. (2) Alcoholism: Status: Chronic Assessment and plan: As above (3) Labile hypertension: Status: Chronic Assessment and plan: Will focus on management of alcohol withdrawal. If critically hypertensive, would then treat. (4) Hyperlipidemia: Status: Chronic Assessment and plan: Continue home statin (5) DVT prophylaxis: Status: Acute Assessment and plan: Sc enoxaparin (6) Discharge planning issues: Status: Acute Assessment and plan: Full code History of Present Illness History of Present Illness Chief Complaint: alcohol withdrawal Narrative: Mr Torres is a 52 year old male with PMHx of EtOH abuse and withdrawal but not alcohol withdrawal seizures, as well as h/o HTN (usually in setting of EtOH use and w/d), hyperlipidemia, GERD, who presented to [facility] with alcohol withdrawal with a CIWA score of 6 while with EtoH level of 222 mg/dL. Last drink was at 3 am this morning, usually consuming anywhere between 1/4 and 3/4 of a bottle of [place] per day. He was treated with IV lorazepam, bringing the CIWA score down to 3, then with PO lorazepam that had no effect. Hospitalist admission for management of alcohol withdrawal was requested. Review of Systems All systems reviewed & are unremarkable except as noted in HPI and below PFSH All Active Problems (Updated 02/23/23 @ 16:13 by Larissa Walter MD) Alcohol withdrawal (Acute) Discharge planning issues (Acute) DVT prophylaxis (Acute) Alcohol use (Acute 09/21/08) pos FH (mom); daily exceeds guidelines Anxiety state (Chronic 08/22/92) Dr Dykes consult; chronic prn alprazolam; ?EtOH, exercise rx, ? 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 risk 5% (12/2011); goal LDL<130 Labile hypertension (Chronic 02/24/13) high in PM, good in office in AM; elevated at order planner's Overweight (Acute 09/21/08) Solar keratosis (Acute 12/04/14) Surgical History (Updated 02/23/23 @ 18:55 by Larissa Walter MD) No pertinent past surgical history Family History Mother Age: 80 ETOH abuse Father Age: 84 Diabetes Myocardial infarction Heart disease Hypertension Other Hyperlipidemia 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 Pets and animals: Yes Pets and animals: cat(s) Sexually active: Yes Do you think of yourself as: straight/heterosexual Current gender identity: male What is your relationship status?: How often do you talk on the phone with friends or family?: three or more times per week How often do you get together with friends or relatives?: three or more times per week How often do you attend catholic or christian services?: decline to answer Do you belong to any clubs or organized social groups?: yes Panel score (0-1 are the most socially isolated patients): 3 What type of physical activity do you participate in: bicycling, weight lifting and running Duration: 60-90 minutes/day Frequency: daily Kala/Protestant: None Special kala needs: No Seatbelt use: sometimes Helmet use: Yes Drive intox or ride w/intox transit mixer 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 Meds Allergies and Home Medications Allergies Allergy/AdvReac Type Severity Reaction Status Date / Time Sulfa (Sulfonamide Allergy Unknown Verified 02/23/23 10:45 Antibiotics) sulfamethoxazole Allergy Unknown 03/08/18-pt Verified 02/23/23 10:45 [From Bactrim] reports had a blister on his lip trimethoprim [From Bactrim] Allergy Unknown blister on Verified 02/23/23 10:45 mouth lisinopril AdvReac Intermediate Dry Cough Verified 02/23/23 10:45 Home Medications Medication Instructions Recorded Confirmed Type chlordiazepoxide HCl 25 mg capsule 25 mg PO Q6-12H PRN alcohol 10/15/22 Rx withdrawal #11 caps alprazolam 1 mg tablet 1 mg PO QHS PRN sleep #30 tabs 10/16/22 02/23/23 Rx atorvastatin 40 mg tablet 40 mg PO QHS #90 tabs 02/09/23 02/23/23 Rx Exam Narrative Exam Narrative: General: Pleasant anxious middle-aged male who is A&Ox3, not visibly tremulous Neurological: A&Ox3, no focal deficits Psychiatric: Anxious, appropriate speech pattern/content Skin: facial plethora; otherwise, no bruising/rashes HEENT: Atraumatic, normocephalic, EOMI, dry MM, clear oropharynx, no submandibular or cervical lymphadenopathy, no goiter or JVD Cardiovascular: RRR, no m/r/g Lungs: CTAB Gastrointestinal: soft, nontender, nondistended Genitourinary: deferred Extremities: no edema BLEs, 1+ pedal pulses B Results Labs 02/23/23 11:30 02/23/23 11:30 Labs: Laboratory Results - last 24 hr 02/23/23 02/23/23 02/23/23 11:30 11:30 11:30 WBC 5.26 RBC 5.45 Hgb 17.6 H Hct 49.7 MCV 91 MCH 32.3 MCHC 35.4 RDW 12.1 Plt Count 241 MPV 9.8 Immature Gran % 1.0 Neutrophils % 56.5 Lymphocytes % 31.6 Monocytes % 9.3 Eosinophils % 0.6 Basophils % 1.0 Nucleated RBC % 0.0 Absolute Neutrophils 2.98 Absolute Lymphocytes 1.66 Absolute Monocytes 0.49 Absolute Eosinophils 0.03 Absolute Basophils 0.05 Sodium 144 Potassium 3.7 Chloride 103 Carbon Dioxide 30.1 Anion Gap 10.9 BUN 11 Creatinine 1.0 Est GFR (CKD-EPI 2020) 90.00 Glucose 123 H Calcium 8.8 Magnesium 2.0 Total Bilirubin 0.6 AST 54 H ALT 88 H Alkaline Phosphatase 67 Total Protein 8.0 Albumin 4.6 Urine Opiates Screen Negative Urine Methadone Screen Negative Ur Barbiturates Screen Negative Ur Tricyclics Screen Negative Ur Amphetamines Screen Negative U Benzodiazepines Scrn Negative Urine Cocaine Screen Negative Ur THC Screen Negative Ethyl Alcohol 222.0 H Last Vital Signs Temp 37.3 C 02/23/23 10:41 Pulse 90 02/23/23 15:31 Resp 17 02/23/23 15:10 BP 148/87 H 02/23/23 15:31 Pulse Ox 94 02/23/23 14:10 PAWSS Have you Been Recently Intoxicated or Drunk Within the Last 30 days?: Yes Have you Ever Experienced Previous Episodes of Alcohol Withdrawal?: Yes Have you ever Experienced Withdrawal Seizures?: No Have you ever Experienced Delirium Tremens(DT)s?: No Have you ever undergone Alcohol Rehabilitation Treatment (i.e, inpt ot outpatient treatment programs)?: Yes Have you ever Experienced Blackouts?: Yes Have you ever Combined Alcohol with other Downers within the last 90 days?: No Have you ever Combined Alcohol with any other Substance of Abuse during the last 90 days?: No Positive Blood Alcohol level on Presentation? [PCS.BAL]: Unable to Obtain Evidence of Increased Autonomic Activity (i.e. HR>120, tremor, sweating, agitation, nausea)?: Yes Result: 5 Time Spent Time spent with Patient: 40-54 minutes Time was spent: preparing to see the patient(eg.review tests), obtaining and/or reviewing separately otained hiistory, ordering medications,tests, procedures, referring, communicating with other health health care sanitary technician, indepentently interpreting results, counseling the patient and care coordination
[2023-02-23] MEDS: PHENobarbital 130 MG/ML VIAL IVP ×3 (19:07→23:50)
[2023-02-23] MEDS: Melatonin 3 MG TAB 6 MG PO (21:49)
[2023-02-23] MEDS: Atorvastatin 40 MG TAB PO (21:49)
[2023-02-23] MEDS: Normal Saline Flush 10 ML SYR IVP (23:51)
[2023-02-24] MEDS: Normal Saline Flush 10 ML SYR IVP ×4 (00:05→01:02)
[2023-02-24] MEDS: PHENobarbital 130 MG/ML VIAL IVP ×4 (00:07→01:02)
[2023-02-24 02:09] VITALS: PULSE 88
[2023-02-24 03:42] VITALS: BP 142/88; PULSE 86; RESP 20; TEMP 36.8; O2SAT 95
[2023-02-24 07:01] LABS: Abs Immature Grans 0.04 10^3/uL (0.0-0.06); Absolute Basophil Count 0.05 10^3/uL (0.0-0.2); Absolute Eosinophil Count 0.04 10^3/uL (0.0-0.7); Absolute Monocyte Count 0.87 10^3/uL (0.1-0.8); Absolute Neutrophil Count 5.72 10^3/uL (1.2-6.7); Basophils % 0.7; Eosinophils % 0.5; HCT 44.1 % (40.0-50.0); HGB 15.7 g/dL (13.5-17.5); Immature Grans % 0.5; Lymphocytes % 11.8; MCHC 35.6 % (32.0-36.0); MCV 90 fL (80-95); MPV 9.9 fL (8.0-11.0); Monocytes % 11.4; Neutrophils % 75.1; Platelet Count 172 10^3/uL (130-400); RDW 11.8 % (11.8-14.1); RDW-SD 39.1 fL; WBC 7.62 10^3/uL (4.4-10.8)
[2023-02-24 07:02] VITALS: BP 155/90; PULSE 84; TEMP 37; O2SAT 94
[2023-02-24 07:32] VITALS: PULSE 84
[2023-02-24 07:39] LABS: Iron 124 ug/dL (65-175); Total Iron Binding Capacity 346 ug/dL (250-450); Transferrin Sat 36 % (20-55)
[2023-02-24] MEDS: Multivitamin TAB 1 TAB PO (07:45)
[2023-02-24] MEDS: Thiamine 100 MG TAB PO (07:46)
[2023-02-24] MEDS: Folic Acid 1 MG TAB PO (07:46)
[2023-02-24 07:52] LABS: Anion Gap 10.5 mmol/L (3-11); BUN 14 mg/dL (7-18); CO2 30.5 mmol/L (21.0-32.0); Calcium 8.6 mg/dL (8.5-10.1); Chloride 100 mmol/L (98-107); Ferritin 695 ng/mL (26-388); Folate 13.2 ng/mL (8.6-20.0); Glucose 104 mg/dL (74-106); Magnesium 1.7 mg/dL (1.8-2.4); Potassium 3.1 mmol/L (3.5-5.1); Sodium 141 mmol/L (136-145); Vitamin B12 793 pg/mL (193-986)
[2023-02-24] MEDS: Potassium Chloride 20 MEQ TABCR 40 MEQ PO (09:25)
[2023-02-24] MEDS: Magnesium Oxide 400 MG TAB PO (09:25)
--- NOTE | 2023-02-24 09:40 | PDOC.CMIN ---
Care Management Initial Assmt Initial Assessment REASON FOR HOSPITALIZATION:: alcohol withdrawal PREVIOUS FUNCTIONAL STATUS/SOCIAL/FAMILY SUPPORTS:: Ed lives in [place] with his Helen. 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 ADVANCE DIRECTIVES:: none on file Has patient been provided with info about the portal/API?: Yes Did the patient sign up for the portal?: Yes CODE STATUS:: Full Code INSURANCE COVERAGE / FINANCIAL ISSUES:: BC/BS of [place] PRIMARY CARE PHYSICIAN:: Ross Pugh POTENTIAL DISCHARGE NEEDS:: follow up with PCP and plan of care PATIENT/FAMILY EDUCATION NEEDS:: Review of discharge instructions, activity, limitations, follow up plan, discuss [employer] TRANSPORTATION:: via private vehicle with family PLAN:: Anticipate that Ed will be discharged home with no new services when medically cleared. He will follow up with his community providers and plan of care and transport with family. CM will continue to support Ed and assess for discharge concerns. PFSH All Active Problems (Updated 02/23/23 @ 16:13 by Larissa Walter MD) Alcohol withdrawal (Acute) Discharge planning issues (Acute) DVT prophylaxis (Acute) Alcohol use (Acute 09/21/08) pos FH (mom); daily exceeds guidelines Anxiety state (Chronic 08/22/92) Dr Dykes consult; chronic prn alprazolam; ?EtOH, exercise rx, ? 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 risk 5% (12/2011); goal LDL<130 Labile hypertension (Chronic 02/24/13) high in PM, good in office in AM; elevated at egg grader's Overweight (Acute 09/21/08) Solar keratosis (Acute 12/04/14) Surgical History (Updated 02/23/23 @ 18:55 by Larissa Walter MD) No pertinent past surgical history Family History (Updated 02/23/23 @ 18:56 by Larissa Walter MD) Mother Age: 80 ETOH abuse Father Age: 84 Diabetes Myocardial infarction Heart disease Hypertension Other Hyperlipidemia 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 Pets and animals: Yes Pets and animals: cat(s) Sexually active: Yes Do you think of yourself as: straight/heterosexual Current gender identity: male What is your relationship status?: How often do you talk on the phone with friends or family?: three or more times per week How often do you get together with friends or relatives?: three or more times per week How often do you attend buddhism or muslim services?: decline to answer Do you belong to any clubs or organized social groups?: yes Panel score (0-1 are the most socially isolated patients): 3 What type of physical activity do you participate in: bicycling, weight lifting and running Duration: 60-90 minutes/day Frequency: daily Kala/Restorationism: None Special kala needs: No Seatbelt use: sometimes Helmet use: Yes Drive intox or ride w/intox freight delivery 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
--- NOTE | 2023-02-24 10:26 | DSE_ITS ---
Date of service: 02/24/23 Time of Service: 10:26 DS: Diagnosis Discharge Diagnosis (1) Alcohol withdrawal: Status: Deleted (2) Alcoholism: Status: Chronic (3) Labile hypertension: Status: Chronic (4) Hyperlipidemia: Status: Chronic (5) DVT prophylaxis: Status: Deleted (6) Discharge planning issues: Status: Deleted Discharge Plan Disposition Patient Disposition: Home Condition: Fair Discharge Details Reason For Visit: Alcohol withdrawal Admit Date/Time: 02/23/23 16:03 Admit Provider: Larissa Walter Attending Provider: Larissa Walter Primary Care Provider: Ross Pugh [place] [facility] Course Hospital Course: This is a 52 year old male with PMHx of ETOH abuse and withdrawal but not alcohol withdrawal seizures, as well as h/o HTN (usually in setting of ETOH use and w/d), hyperlipidemia, GERD, who presented to [facility] ED with alcohol withdrawal with a CIWA score of 6 while with ETOH level of 222 mg/dL. Usually consuming anywhere between 1/4 and 3/4 of a bottle of [place] per day. He was treated with IV lorazepam, bringing the CIWA score down to 3, then with PO lorazepam that had no effect. He was placed on observation status on the medical floor. He did well overnight and scored 0's on the CIWA score tool. He was discharged home with Rx for alprazolam, he reports that is how he usually detox's at home and potassium as his is a little low. A BMP was ordered for March 01 to check his potassium and he was asked to follow up with his PCP regarding levels and need or discontinuation of potassium supplement. He was encouraged to stop drinking alcohol and to seek out treatment. He is discharged to home, stable. Home Meds and New Rx's Prescriptions: New alprazolam 1 mg tablet 1 mg PO QHS PRNQty: 14 0RF potassium chloride 20 mEq tablet extended release 20 meq PO BID Qty: 10 0RF No Action alprazolam 1 mg tablet 1 mg PO QHS PRN (Reason: sleep) Qty: 30 0RF Patient Comments: pt states not taking atorvastatin 40 mg tablet 40 mg PO QHS Qty: 90 3RF chlordiazepoxide HCl 25 mg capsule 25 mg PO Q6-12H PRN (Reason: alcohol withdrawal) Qty: 11 0RF Patient Comments: pt states not taking Rx Instructions: Day 1:Take one tab 4 times a day as needed for symptoms. Day 2: Take one tab 3 times a day as needed. Day 3: Take one tab twice daily as needed. Then take one tab daily as needed x 2 days. Discharge Instructions Instructions: Alprazolam (By mouth), Hypokalemia (DC), Alcohol Withdrawal (DC), Hypomagnesemia (DC), Anxiety (DC) Additional Instructions: Follow up with PCP. Call and make an appointment with the lab to have your blood drawn WednesdayMarch 01 to check your electrolytes. Take a magnesium supplement, 400 mg daily (over the counter). DON'T drink alcohol; if you do, DON'T take alprazolam the combination can be deadly. Stand Alone Forms: Nursing Discharge Form Referrals: Ross Pugh DO [Primary Care Provider] - 03/10/23 1:30 pm Activity:: Activity as Tolerated Equipment/Supplies:: No Equipment Needed Diet:: DON'T drink alcohol Discharge Orders Discharge Orders: Discharge Order (Routine); Ordered 02/24/23 Ordered By: Chelsea Ledezma Other Ambulatory Orders: Basic Metabolic Panel (Routine) Timeframe: 20230301 Location: None Selected Ordered By: Chelsea Ledezma Discharge Data Discharge Date/Time-TO BE ENTERED AT DEPARTURE: 02/24/23 10:57 DS: Summary Time Spent with Patient providing and/or coordinating discharge services: Greater than 30 minutes Status at Discharge Functional status at discharge: independent ambulation Overall status at discharge: patient is back to baseline Mental Status: mental status grossly normal Speech and Movement: speech and movement normal Mood: congruent mood Affect: normal affect Exam Narrative Exam Narrative: General: middle-aged male who is A&Ox3, not visibly tremulous Neurological: A&Ox3, no focal deficits Psychiatric: appropriate speech pattern/content Skin: facial plethora; otherwise, no bruising/rashes HEENT: Atraumatic, normocephalic, EOMI, dry MM, clear oropharynx, no submandibular or cervical lymphadenopathy, no goiter or JVD Cardiovascular: RRR, no m/r/g Lungs: CTAB Gastrointestinal: soft, nontender, nondistended Genitourinary: deferred Extremities: no edema BLEs, 1+ pedal pulses B Psych Mental Status: mental status grossly normal Speech and Movement: speech and movement normal Mood: congruent mood Affect: normal affect DS: Data Vitals/I&O Vitals and I&O: Vital Signs Temperature 37.0 C 02/24/23 07:02 Temperature Source Tympanic 02/24/23 07:02 Pulse 84 02/24/23 07:32 Pulse Rhythm Regular 02/24/23 07:15 Pulse 86 02/23/23 16:45 Respiratory Rate 20 02/24/23 03:42 Respiratory Effort Normal, Non-Labored 02/24/23 07:15 Respiratory Depth Normal 02/24/23 07:15 Respiratory Pattern Normal 02/24/23 07:15 Blood Pressure 155/90 H 02/24/23 07:02 Blood Pressure Mean 103 02/23/23 16:45 Blood Pressure Position Sitting 02/23/23 10:41 Pulse Oximetry 94 02/24/23 07:02 Oxygen Delivery Method Room Air 02/24/23 07:02 Oxygen Flow Rate 0 02/24/23 07:02 Pain Level 0 02/24/23 07:15 Intake & Output 02/23/23 02/23/23 02/24/23 11:59 23:59 11:59 Intake Total 1111 / 1111 Balance 1111 / 1111 Weight 90.718 kg 94.1 kg 94.3 kg Intake: IV 1111 / 1111 Other: Urine Appearance Clear Clear Data Completed and Pending Labs on day of discharge: Labs from last 24 hours 02/24/23 02/24/23 02/24/23 06:00 06:00 06:00 WBC 7.62 RBC 4.90 Hgb 15.7 Hct 44.1 MCV 90 MCH 32.0 MCHC 35.6 RDW 11.8 Plt Count 172 MPV 9.9 Immature Gran % 0.5 Neutrophils % 75.1 Lymphocytes % 11.8 Monocytes % 11.4 Eosinophils % 0.5 Basophils % 0.7 Nucleated RBC % 0.0 Absolute Neutrophils 5.72 Absolute Lymphocytes 0.90 L Absolute Monocytes 0.87 H Absolute Eosinophils 0.04 Absolute Basophils 0.05 Sodium 141 Potassium 3.1 L Chloride 100 Carbon Dioxide 30.5 Anion Gap 10.5 BUN 14 Creatinine 1.0 Est GFR (CKD-EPI 2020) 90.00 Glucose 104 Calcium 8.6 Magnesium 1.7 L Iron 124 TIBC 346 Transferrin % Sat 36 Ferritin 695 H Total Bilirubin AST ALT Alkaline Phosphatase Total Protein Albumin Vitamin B12 793 Folate 13.2 Urine Opiates Screen Urine Methadone Screen Ur Barbiturates Screen Ur Tricyclics Screen Ur Amphetamines Screen U Benzodiazepines Scrn Urine Cocaine Screen Ur THC Screen Ethyl Alcohol 02/23/23 02/23/23 02/23/23 17:30 11:30 11:30 WBC 5.26 RBC 5.45 Hgb 17.6 H Hct 49.7 MCV 91 MCH 32.3 MCHC 35.4 RDW 12.1 Plt Count 241 MPV 9.8 Immature Gran % 1.0 Neutrophils % 56.5 Lymphocytes % 31.6 Monocytes % 9.3 Eosinophils % 0.6 Basophils % 1.0 Nucleated RBC % 0.0 Absolute Neutrophils 2.98 Absolute Lymphocytes 1.66 Absolute Monocytes 0.49 Absolute Eosinophils 0.03 Absolute Basophils 0.05 Sodium Potassium Chloride Carbon Dioxide Anion Gap BUN Creatinine Est GFR (CKD-EPI 2020) Glucose Calcium Magnesium Iron TIBC Transferrin % Sat Ferritin Total Bilirubin AST ALT Alkaline Phosphatase Total Protein Albumin Vitamin B12 Folate Urine Opiates Screen Cancelled Negative Urine Methadone Screen Cancelled Negative Ur Barbiturates Screen Cancelled Negative Ur Tricyclics Screen Cancelled Negative Ur Amphetamines Screen Cancelled Negative U Benzodiazepines Scrn Cancelled Negative Urine Cocaine Screen Cancelled Negative Ur THC Screen Cancelled Negative Ethyl Alcohol 02/23/23 11:30 WBC RBC Hgb Hct MCV MCH MCHC RDW Plt Count MPV Immature Gran % Neutrophils % Lymphocytes % Monocytes % Eosinophils % Basophils % Nucleated RBC % Absolute Neutrophils Absolute Lymphocytes Absolute Monocytes Absolute Eosinophils Absolute Basophils Sodium 144 Potassium 3.7 Chloride 103 Carbon Dioxide 30.1 Anion Gap 10.9 BUN 11 Creatinine 1.0 Est GFR (CKD-EPI 2020) 90.00 Glucose 123 H Calcium 8.8 Magnesium 2.0 Iron TIBC Transferrin % Sat Ferritin Total Bilirubin 0.6 AST 54 H ALT 88 H Alkaline Phosphatase 67 Total Protein 8.0 Albumin 4.6 Vitamin B12 Folate Urine Opiates Screen Urine Methadone Screen Ur Barbiturates Screen Ur Tricyclics Screen Ur Amphetamines Screen U Benzodiazepines Scrn Urine Cocaine Screen Ur THC Screen Ethyl Alcohol 222.0 H PFSH All Active Problems (Updated 02/25/23 @ 00:06 by BETI PAGAN) Hypokalemia (Acute) Alcohol withdrawal (Acute) Alcohol use (Acute 09/21/08) pos FH (mom); daily exceeds guidelines Anxiety state (Chronic 08/22/92) Dr Dykes consult; chronic prn alprazolam; ?EtOH, exercise rx, ? 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 risk 5% (12/2011); goal LDL<130 Labile hypertension (Chronic 02/24/13) high in PM, good in office in AM; elevated at system administration manager's Overweight (Acute 09/21/08) Solar keratosis (Acute 12/04/14) Surgical History (Updated 02/23/23 @ 18:55 by Larissa Walter MD) No pertinent past surgical history Family History (Updated 02/23/23 @ 18:56 by Larissa Walter MD) Mother Age: 80 ETOH abuse Father Age: 84 Diabetes Myocardial infarction Heart disease Hypertension Other Hyperlipidemia 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 Pets and animals: Yes Pets and animals: cat(s) Sexually active: Yes Do you think of yourself as: straight/heterosexual Current gender identity: male What is your relationship status?: How often do you talk on the phone with friends or family?: three or more times per week How often do you get together with friends or relatives?: three or more times per week How often do you attend rastafarian or baptism services?: decline to answer Do you belong to any clubs or organized social groups?: yes Panel score (0-1 are the most socially isolated patients): 3 What type of physical activity do you participate in: bicycling, weight lifting and running Duration: 60-90 minutes/day Frequency: daily Kala/Mandaen: None Special kala needs: No Seatbelt use: sometimes Helmet use: Yes Drive intox or ride w/intox 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
[2023-02-24 10:38] VITALS: PULSE 90
--- NOTE | 2023-02-24 13:55 | PDOC.CMPRO ---
Date of service: 02/24/23 Time of Service: 13:55 Care Management Progress Note Progress Note Text Progress Note Text: Alcides was admitted yesterday because he was withdrawing from alcohol. He did well overnight and was discharged home this morning before CM was able to meet with him. No new services were ordered.
== END 2023-02-24 10:57 | disposition home or self-care (01) | DRG 897 ==
LOC: ER 10:52 → MS 17:03
PROVIDERS: Admitting Provider Internal Medicine; Emergency Provider Student in an Organized Health Care Education/Training Program; PCP Family Medicine; Visit Provider Internal Medicine
DX: F10.239 Alcohol dependence with withdrawal, unspecified (principal); E78.5 Hyperlipidemia, unspecified; K21.9 Gastro-esophageal reflux disease without esophagitis; I10 Essential (primary) hypertension; J30.9 Allergic rhinitis, unspecified; Y90.7 Blood alcohol level of 200-239 mg/100 ml
CPT/HCPCS: 36415; 80048; 80053; 80307; 96365; 99285; 80320; 82607; 82728; 82746; 83540; 83550; 83735; 85025; 99223; 99239; J2060; J2560

== ENCOUNTER 2023-03-26 02:17 | Outpatient (CLI) | payer BC, SELFPAY ==
[2023-03-26 09:59] LABS: Anion Gap 8.9 mmol/L (3-11); BUN 12 mg/dL (7-18); CO2 30.1 mmol/L (21.0-32.0); CREATININE 1.3 mg/dL (0.70-1.30); Calcium 9.6 mg/dL (8.5-10.1); Chloride 101 mmol/L (98-107); Estimated GFR 65.28 (mL/min/1.73m2); Glucose 121 mg/dL (74-106); Potassium 4.3 mmol/L (3.5-5.1); Sodium 140 mmol/L (136-145)
== END 2023-03-26 02:18 | disposition home or self-care (01) ==
PROVIDERS: PCP Family Medicine; Visit Provider Nurse Practitioner Family
DX: E87.6 Hypokalemia (principal); F41.8 Other specified anxiety disorders; I10 Essential (primary) hypertension
CPT/HCPCS: 36415; 80048

== ENCOUNTER 2024-04-24 22:07 | Inpatient (IN) | payer BC, SELFPAY ==
[2024-04-24] VITALS (12 sets, daily range): BP systolic 139–169; BP diastolic 92–116; PULSE 93–125; RESP 16–24; TEMP 37; O2SAT 90–95
--- NOTE | 2024-04-24 22:11 | ED.GENADUL_ITS ---
Discharge Plan Disposition Patient Disposition: Admit to [facility] Condition: Fair Discharge Details Clinical Impression: Alcohol dependence, Anxiety, Alcohol withdrawal Primary Care Provider: Ross Pugh ED Provider: Marino Argueta [place] Meds and New Rx's Prescriptions: No Action naltrexone 50 mg tablet 50 mg PO DAILY Qty: 90 1RF sildenafil 50 mg tablet 50 mg PO DAILY PRN (Reason: sexual activity) Qty: 30 3RF Rx Instructions: administer 30 minutes to 4 hours before activity alprazolam 1 mg tablet 1 mg PO QHS PRN (Reason: sleep) Qty: 30 1RF atorvastatin 40 mg tablet 40 mg PO QHS Qty: 90 3RF HPI General Mode of arrival: ambulatory . Date/Time Provider Initiated Documentation: 04/24/24 22:11 . Limitations to Documentation: other (Intoxicated) . Information obtained by: patient, RN notes reviewed and old records reviewed . HPI Narrative: Patient presenting to ED with complaint of alcohol intoxication, falls, requesting detox. Patient reports that he has been drinking heavily over the last 1 to 2 weeks. He has had multiple falls but is unclear on timeline. He is very vague and has no real specific complaints. He states he wants to stop drinking but knows he is going to be in a rough spot when he does this. Has a history of alcoholism and alcohol withdrawal but no history of seizures. Does report right flank pain and has bruising there but is not able to tell me when this fall occurred. Family brought him here per his request. Related Data Home Medications ?Medication ?Instructions ?Recorded ?Confirmed naltrexone 50 mg tablet 50 mg PO DAILY #90 tabs 07/12/23 04/24/24 sildenafil 50 mg tablet 50 mg PO DAILY PRN sexual activity 01/24/24 04/24/24 #30 tabs atorvastatin 40 mg tablet 40 mg PO QHS #90 tabs 03/02/24 04/24/24 alprazolam 1 mg tablet 1 mg PO QHS PRN sleep #30 tabs 03/20/24 04/24/24 Previous Rx's ?Medication ?Instructions ?Recorded naltrexone 50 mg tablet 50 mg PO DAILY #90 tabs 07/12/23 sildenafil 50 mg tablet 50 mg PO DAILY PRN sexual activity 01/24/24 #30 tabs atorvastatin 40 mg tablet 40 mg PO QHS #90 tabs 03/02/24 alprazolam 1 mg tablet 1 mg PO QHS PRN sleep #30 tabs 03/20/24 Allergies Allergy/AdvReac Type Severity Reaction Status Date / Time Sulfa (Sulfonamide Allergy Unknown Other (See Verified 04/24/24 22:19 Antibiotics) Comment) sulfamethoxazole (From Allergy Unknown 03/08/18-pt Verified 04/24/24 22:19 Bactrim) reports had a blister on his lip trimethoprim (From Bactrim) Allergy Unknown blister on Verified 04/24/24 22:19 mouth lisinopril AdvReac Intermediate Dry Cough Verified 04/24/24 22:19 General GREGORY: 3 Review of Systems Unobtainable due to mental status Exam Narrative Exam Narrative: Const: WDWN male in NAD. VS per triage. HEENT: NC/AT. Normal facial exam. Neck: Supple. Trachea midline. Lungs: Normal respiratory effort. Lungs are clear. Cor: RRR without murmur. Good radial pulses. GI: Soft/ND/NT. Bruising right flank, some tenderness lateral chest/flank. Neuro: A+O x 3. Slow mentation and vague, speech slow and slurred. Cranial nerves II - XII grossly intact. No gross motor or sensory deficit. Ext: No C/C/E. No deformity/tenderness. Medical Decision Making Patient presenting to ED with alcohol intoxication, history of alcoholism with withdrawal but no seizures, multiple falls but unclear timing. He does have bruising and pain on the right flank area. He is tachycardic but could be related to anxiety, withdrawal, trauma. He is a very poor historian at this point in time. Family brought him here and has seemingly left. Was seen by his PCP at the end of February and given alprazolam which he has used previously for o utpatient detox. Given the report of falls and the level of intoxication I will obtain scans to rule out any significant traumatic injury. IV established and laboratory studies obtained. 2 L of LR and 100 mg thiamine ordered. Will begin CIWA scoring and monitor pending trauma and lab results. Patient's laboratory studies with a white count of 13.2, hemoglobin 18.4. Platelets are normal. Sodium slightly high at 146 otherwise electrolytes and kidney function normal. AST and ALT slightly elevated but below 100. Lipase is normal. Urinalysis with protein and ketones but no evidence of infection. Urine drug screen negative. Alcohol level 344. After coming back from CT scan he is requesting lorazepam. He is scoring a CIWA of 16 per nursing but some of this may simply be anxiety driven. I did give him 1 mg IV Ativan and his vital signs have normalized and he is sleeping. CT scans are negative for any traumatic injury. Case discussed with hospitalist, Dr. Frazier. Patient will be admitted to hospitalist service for further management. Medical Records Medical records reviewed: Yes I reviewed the patient's medical records. Medical records narrative: Inpatient and outpatient notes Lab Data Lab results reviewed: Yes I reviewed the patient's lab results. ECG Data Attestation: I personally reviewed and interpreted this ECG (s) as follows: Interpretation: Sinus tachycardia otherwise normal PFSH All Active Problems (Updated 04/25/24 @ 01:47 by Marino Argueta MD) Alcohol withdrawal (Acute) Anxiety (Chronic) Alcohol dependence (Acute) Sexual dysfunction (Acute) Excessive gas (Acute) Pudendal neuralgia (Acute) White coat syndrome without diagnosis of hypertension (Acute) Pelvic pain (Acute) Cervicalgia (Acute) Chronic rhinitis (Acute 12/21/91) Allergy Dr Meza 06/2012: chandu argueta Labile hypertension (Chronic 02/24/13) high in PM, good in office in AM; 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 risk 5% (12/2011); goal LDL<130 Surgical History No pertinent past surgical history Family History Mother Age: 80 ETOH abuse Father Age: 84 Diabetes Myocardial infarction Heart disease Hypertension Other Hyperlipidemia 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 Pets and animals: Yes Pets and animals: cat(s) Sexually active: Yes Do you think of yourself as: straight/heterosexual Current gender identity: male What is your relationship status?: How often do you talk on the phone with friends or family?: three or more times per week How often do you get together with friends or relatives?: three or more times per week How often do you attend yazidism or orthodox services?: decline to answer Do you belong to any clubs or organized social groups?: yes Panel score (0-1 are the most socially isolated patients): 3 What type of physical activity do you participate in: bicycling, weight lifting and running Duration: 60-90 minutes/day Frequency: daily Kala/Mormonism: None Special kala needs: No Seatbelt use: sometimes Helmet use: Yes Drive intox or ride w/intox belly dump 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
--- NOTE | 2024-04-24 22:15 | RT.EKG_ITS ---
APPROVED REPORT Exam: Resting ECG Reason for Exam: trauma Patient Location: E HR:104 bpm ECG Measurements Heart Rate 104 AXIS MI 169 P 54 QRSd 84 QRS -14 QT 335 T 32 QTc 441 Conclusion Sinus tachycardia...rate> 99 Normal axis, interval and ST segments. Normal Electrocardiogram
--- NOTE | 2024-04-24 22:15 | DI.CT_ITS ---
Exam(s) CT HEAD CERVICAL SPINE WO EXAM: CT HEAD CERVICAL SPINE WO CLINICAL HISTORY: intoxicated, multiple falls. TECHNIQUE: Imaging Protocol: Axial computed tomography images with coronal and sagittal reformatted images were created and reviewed COMPARISON: No exams were available for comparison FINDINGS: The examination is limited due to patient motion artifact. CT Head: Ventricles and Extra axial spaces: Normal in size and morphology for the patient's age. Hemorrhage: None. Cerebral parenchyma: Normal. Midline shift: None. Brainstem/Cerebellum: Normal. Calvarium: Normal. Visualized Paranasal sinuses/Mastoids: Clear. Soft Tissues: Unremarkable. CT Cervical Spine: Bones: No acute fracture or subluxation. There is congenital nonunion of the posterior arch of C1. A ge-appropriate degenerative changes are seen in the cervical spine. Soft Tissues: Unremarkable. Lung Apices: Clear. IMPRESSION: 1. No acute intracranial process. 2. No acute fracture or subluxation in the cervical spine. RADIATION DOSE DELIVERED: 1,365.08mGy.cm Total DLP DATA REPOSITORY: All CT scans at this facility are submitted to the National Radiology Data Registry (NRDR) Dose Index Registry (DIR) with the [employer] (ACR). RADIATION OPTIMIZATION: All CT scans at this facility use at least one of these dose optimization te chniques: automated exposure control; mA and/or kV adjustment per patient size (includes targeted exa ms where dose is matched to clinical indication); or iterative reconstruction.
--- NOTE | 2024-04-24 22:15 | DI.CT_ITS ---
Exam(s) CT CHEST/ABD/PEL W EXAM: CT CHEST/ABD/PEL W CLINICAL HISTORY: intoxicated, multiple falls TECHNIQUE: Imaging Protocol: Axial computed tomography images with coronal and sagittal reformatted images were created and reviewed CONTRAST MATERIAL: Intravenous: Omnipaque 350 contrast volume:100 mL Oral: No COMPARISON: No exams were available for comparison FINDINGS: CHEST: Tracheobronchial tree: Patent where visualized. Pulmonary parenchyma: No consolidation or dominant measurable mass. There are dependent atelectatic c hanges in the lung bases. Visualized thyroid gland: Unremarkable. Mediastinum and Marcela: No dominant adenopathy or fluid collection. The esophagus is unremarkable. Pleura: No effusion or pneumothorax. Heart: The heart is not dilated. Coronary artery calcifications are present. No pericardial effusion . Pulmonary arteries: No pulmonary emboli are identified. Aorta: Thoracic aorta non-dilated. There is no evidence of dissection. Lymph nodes: Within normal limits. Soft tissues: Unremarkable. Bones:Within normal limits for the patient's age. ABDOMEN: Liver: Normal density. Cysts are seen in the left lobe of the liver. No suspicious hepatic lesions a re seen. Portal, Superior Mesenteric, and Splenic Veins: Unremarkable. Gallbladder and Biliary Tract: No radiodense calculus or dilation. Pancreas: Normal density, no abnormal calcifications or inflammatory process. Spleen: Normal. Adrenals: No masses seen. Kidneys: Normal size, contour and axis. No radiodense stones or obstructive uropathy. No masses seen. Abdominal Aorta: Abdominal portion non-dilated. Atherosclerotic calcification is present. Bowel: No obstruction or bowel wall thickening. No evidence of appendicitis. Peritoneal Cavity: No ascites, collection or mesenteric inflammatory response. No free air. Lymph Nodes: Within normal limits. Bones: Within normal limits for the patient's age. Soft Tissues: Unremarkable. PELVIS: Bladder: Symmetric distention, no gross wall thickening. Reproductive Organs: Unremarkable as visualized. Lymph Nodes: Within normal limits. Bones: Within normal limits. IMPRESSION: 1. No acute pulmonary process. 2. No acute abdominal or pelvic organ injury. RADIATION DOSE DELIVERED: 632.32mGy.cm Total DLP DATA REPOSITORY: All CT scans at this facility are submitted to the National Radiology Data Registry (NRDR) Dose Index Registry (DIR) with the [employer] (ACR). RADIATION OPTIMIZATION: All CT scans at this facility use at least one of these dose optimization te chniques: automated exposure control; mA and/or kV adjustment per patient size (includes targeted exa ms where dose is matched to clinical indication); or iterative reconstruction.
[2024-04-24 22:42] LABS: Abs Immature Grans 0.06 10^3/uL (0.0-0.06); Absolute Eosinophil Count 0.04 10^3/uL (0.0-0.7); Absolute Lymphocyte Count 1.08 10^3/uL (1.2-3.4); Absolute Neutrophil Count 11.47 10^3/uL (1.2-6.7); Basophils % 0.5 %; Eosinophils % 0.3 %; HCT 52.3 % (40.0-50.0); HGB 18.4 g/dL (13.5-17.5); Immature Grans % 0.5 %; Lymphocytes % 8.2 %; MCH 31.9 pg (27.0-33.0); MCHC 35.2 % (32.0-36.0); MCV 91 fL (80-95); Monocytes % 3.3 %; Neutrophils % 87.2 %; Platelet Count 243 10^3/uL (130-400); RBC 5.76 10^6/uL (4.36-5.78); RDW 11.4 % (11.8-14.1); RDW-SD 38.5 fL; WBC 13.15 10^3/uL (4.4-10.8)
[2024-04-24 22:43] LABS: Absolute Basophil Count 0.07 10^3/uL (0.0-0.2); Absolute Monocyte Count 0.43 10^3/uL (0.1-0.8)
[2024-04-24 22:53] LABS: Prothrombin Time 9.9 sec (9.1-11.1)
[2024-04-24] MEDS: Lactated Ringers 2,000 ML 1000 ML IV (22:53)
[2024-04-24] MEDS: THIAMINE 100 MG in Normal Saline 100 ML 200 MG IVPB (22:53)
[2024-04-24 23:01] LABS: Lipase 50 U/L (16-77)
[2024-04-24 23:07] LABS: ALT 99 U/L (16-63); AST 59 U/L (15-37); Albumin 4.4 g/dL (3.4-5.0); Alkaline Phosphatase 73 U/L (46-116); Anion Gap 10.4 mmol/L (3-11); BUN 11 mg/dL (7-18); Bilirubin, Total 0.58 mg/dL (0.2-1.0); CO2 29.6 mmol/L (21.0-32.0); Calcium 8.9 mg/dL (8.5-10.1); Chloride 106 mmol/L (98-107); Estimated GFR 88.88 (mL/min/1.73m2); Glucose 141 mg/dL (74-106); Sodium 146 mmol/L (136-145); Total Protein 7.9 g/dL (6.4-8.2)
[2024-04-24 23:16] LABS: Bilirubin Negative (Negative); Blood Negative (Negative); Clarity Clear (Clear); Glucose Negative (Negative); Ketones 15 mg/dL (Negative); Leukocyte Esterase Negative (Negative); Nitrite Negative (Negative); Urobilinogen 0.2 mg/dL (Up to 0.2)
[2024-04-24 23:24] LABS: Bacteria Negative HPF (Negative); C & S Indicated? No; Casts Negative LPF (Negative); Crystals Negative HPF (Negative); Epithelial Cells Rare HPF (Negative); Mucus Trace (Negative); RBC 0-2 HPF (0-2); WBC 0-2 HPF (0-5)
[2024-04-24 23:29] LABS: *AMPHETAMINES SCREEN URINE Negative (Negative); *BARBITURATES SCREEN URINE Negative (Negative); *BENZODIAZEPINES SCREEN URINE Negative (Negative); Cannabinoids THC Negative (Negative); Cocaine Screen,Urine Negative (Negative); METHADONE URINE SCREEN Negative (Negative); OPIATES URINE SCREEN Negative (Negative)
[2024-04-24 23:31] LABS: Tricyclic Antidepressants Negative (Negative)
[2024-04-24] MEDS: Normal Saline - Diluent 50 ML VIAL IJ (23:54)
[2024-04-24] MEDS: Omnipaque 350 MG/ML 100 ML BTL IJ (23:55)
[2024-04-25] VITALS (33 sets, daily range): BP systolic 100–159; BP diastolic 63–103; PULSE 81–101; RESP 0–23; TEMP 36.4–37; O2SAT 89–98
--- NOTE | 2024-04-25 00:19 | DI.VRAD_ITS ---
PROCEDURE INFORMATION: Exam: CT Head Without Contrast Exam date and time: 04/24/2024 11:37 PM Age: 54 years old Clinical indication: Injury or trauma; Blunt trauma (contusions or hematomas); Injury details: Intoxicated, multiple falls TECHNIQUE: Imaging protocol: Computed tomography of the head without contrast. COMPARISON: No relevant prior studies available. FINDINGS: Brain: Normal. Cerebral ventricles: No ventriculomegaly. Paranasal sinuses: Visualized sinuses are unremarkable. No fluid levels. Mastoid air cells: Normal as visualized. Bones: Unremarkable. No acute fracture. Soft tissues: Unremarkable. IMPRESSION: No acute intracranial abnormality. PROCEDURE INFORMATION: Exam: CT Cervical Spine Without Contrast Exam date and time: 04/24/2024 11:37 PM Age: 54 years old Clinical indication: Injury or trauma; Blunt trauma (contusions or hematomas); Injury details: Intoxicated, multiple falls TECHNIQUE: Imaging protocol: Computed tomography of the cervical spine without contrast. COMPARISON: CR XR CHEST 2V PA LATERAL 08/31/2020 6:02 PM FINDINGS: Bones: Congenital incomplete fusion of the posterior arch of C1. Mild multilevel bilateral facet and uncovertebral arthropathy. Bilateral C3-C4, right C4-C5, right C5-C6, and right C6-C7 neural foraminal narrowing. No acute fracture or malalignment. Lungs: Lung apices are normal. Soft tissues: Normal. IMPRESSION: No acute fracture or malalignment. Dictated and Authenticated by: Ghassan Rousseau MD. Ordering:DEE Pichardo MD
[2024-04-25] MEDS: LORazepam 2 MG/ML VIAL 1 MG IVP (00:20)
--- NOTE | 2024-04-25 01:25 | DI.VRAD_ITS ---
PROCEDURE INFORMATION: Exam: CT Chest With Contrast; Diagnostic Exam date and time: 04/24/2024 11:41 PM Age: 54 years old Clinical indication: Injury or trauma; Generalized; Blunt trauma (contusions or hematomas); Injury details: RT sided pain. Intoxicated, multiple falls TECHNIQUE: Imaging protocol: Diagnostic computed tomography of the chest with contrast. 3D rendering (Not supervised by radiologist): MIP and/or 3D reconstructed images were created by the technologist. Contrast material: OMNI 350; Contrast volume: 100 ml; Contrast route: INTRAVENOUS (IV); COMPARISON: CR XR CHEST 2V PA LATERAL 08/31/2020 6:02 PM FINDINGS: Lungs: Normal. Pleural spaces: Unremarkable. No pneumothorax. No pleural effusion. Heart: Normal. Coronary arteries: Atherosclerotic disease of the visualized left anterior descending coronary artery. Lymph nodes: No pathologically-enlarged lymph nodes. Vasculature: Unremarkable. No aortic aneurysm. Bones/joints: Multilevel thoracic spine degenerative disc space narrowing and osteophyte formation. Soft tissues: Normal. IMPRESSION: No acute thoracic abnormality. PROCEDURE INFORMATION: Exam: CT Abdomen And Pelvis With Contrast Exam date and time: 04/24/2024 11:41 PM Age: 54 years old Clinical indication: Injury or trauma; Generalized; Blunt trauma (contusions or hematomas); Injury details: RT sided pain. Intoxicated, multiple falls TECHNIQUE: Imaging protocol: Computed tomography of the abdomen and pelvis with contrast. 3D rendering (Not supervised by radiologist): MIP and/or 3D reconstructed images were created by the technologist. Contrast material: OMNI 350; Contrast volume: 100 ml; Contrast route: INTRAVENOUS (IV); COMPARISON: CR XR CHEST 2V PA LATERAL 08/31/2020 6:02 PM FINDINGS: Liver: Simple hepatic cysts. Gallbladder and biliary ducts: Normal. Pancreas: Normal. Spleen: Normal. Adrenal glands: Normal. No mass. Kidneys and ureters: Normal. Stomach and bowel: Normal. Appendix: No evidence of appendicitis. Intraperitoneal space: Unremarkable. No free air. No significant fluid collection. Vasculature: Phleboliths within the pelvis. Lymph nodes: Unremarkable. No enlarged lymph nodes. Urinary bladder: Unremarkable as visualized. Reproductive: Unremarkable as visualized. Bones/joints: Degenerative changes of the hips and sacroiliac joints. Multilevel lumbar spine degenerative disc space narrowing and osteophyte formation. Soft tissues: Normal. IMPRESSION: No acute abdominal or pelvic abnormality. Dictated and Authenticated by: Ghassan Rousseau MD. Ordering:DEE Pichardo MD
--- NOTE | 2024-04-25 02:45 | HPE_ITS ---
Date of service: 04/25/24 Time of Service: 02:45 Assessment and Plan Assessment and plan (1) Alcohol withdrawal: Status: Acute Assessment and plan: Current confortable without overt withdrawal after 1mg lorazepam IV. He strongly refuses phenobarbitol. Will proceed with [facility] protocol with lorazepam, oral at this point. His RAHUL is high but he has no history of severe withdrawal and currently stable. Given this, admit to the floor. He is tolerating oral medication so treat with oral lorazepam prn. Continue maintenance fluids and his CBC appears hemoconcentrated, but he is taking po and can have a diet in the morning Vague history of trauma but CT head through pelvis reassuring. Qualifiers: Complication of substance-induced condition: uncomplicated Qualified Code(s): F10.930 - Alcohol use, unspecified with withdrawal, uncomplicated (2) Alcohol dependence: Status: Acute Assessment and plan: It was hard to engage with him discussing [facility] treatment in his current state. I do have a concern that his use of benzodiazepines may be becoming problematic, so I would be hesitant to send him home with them. I would encourage medicines we know improve outcomes with alcohol use disorder such as naltrexone and acamprosate. I would encourage therapy and groups. (3) Anxiety: Status: Chronic Assessment and plan: Anxiety and personal stressors are clearly playing a role, though it does not appear he has ever engaged in treatment other than benzodiazepines such as therapy or SSRIs. I don't think he should be treated for anxiety with benzodiazepines after withdrawal. (4) Acute alcoholic hepatitis: Status: Acute Assessment and plan: Mild. Reassuring bilirubin and PT. Follow LFTs. (5) Labile hypertension: Status: Chronic Assessment and plan: associated with alcohol use, monitor. states BP normal a few weeks out from drinking. (6) DVT prophylaxis: Status: Acute Assessment and plan: low risk for DVT per Cat score, SCDs while he is in bed. History of Present Illness History of Present Illness Chief Complaint: alcohol withdrawal Narrative: 54 yo M with history of alcohol use disorder and anxiety presenting with after 1-2 weeks of binging on alcohol requesting detox. He reports multiple falls but is unable to give details or a timeline. He states he has been drinking heavily in the past 2 weeks, 1/2 bottle of 80 proof liquor and 1 1/2 bottle of wine on 04/24, stopping 4-5 hours before he his son brought him to the hospital. He would like to get off alcohol. He has detoxed as an outpatient including several times with Dr. Pugh as an outpatient with alprazolam. He did reports periods of sobriety of at several months at a time. He was admitted here overnight 02/23/23, with the initial plan to use phenobarbitol but it does not appear he ever got anything other than lorazepam before he left, and he was discharged with a prescription for alprazolam. He states he absolutely cannot take phenobarbitol. He took it once and it was absolutely horrible, caused him almost to hallucinate but he cannot give more details. He denies any history of withdrawal seizures. He has been prescribed naltrexone, but has never taken it for AUD. His goal is to get sober. Currently his only complaint is a headache, which he relates to dehydration and he requests an ibuprofen as well as more fluids and lorazepam as he feels withdraw coming on again. He was able to rest after 1mg of lorazepam IV in the ED. Review of Systems All systems reviewed & are unremarkable except as noted in HPI and below Constitutional Constitutional: Denies chills, Denies fever(s) and Reports frequent falls Eyes Eyes: Denies loss of vision ENT Ears, Nose, Mouth, and Throat: Reports disequilibrium Cardiovascular Cardiovascular: Denies chest pain, Denies chest pain with activity, Denies palpitations and Denies dyspnea Respiratory Respiratory: Denies cough and Denies dyspnea Gastrointestinal Gastrointestinal: Denies abdominal pain, Denies diarrhea, Denies nausea and Denies vomiting Neurologic Neurologic: Denies abnormal movements, Denies confusion, Reports frequent falls, Denies localized weakness, Denies loss of vision, Denies other visual disturbances, Denies seizure-like activity, Reports tremor(s) and Reports disequilibrium Psychiatric Psychiatric: Reports anxiety, Denies confusion, Denies visual hallucinations and Denies hallucinations Endocrine Endocrine: Denies palpitations PFSH All Active Problems (Updated 04/25/24 @ 03:12 by Gerard Frazier) Acute alcoholic hepatitis (Acute) Discharge planning issues (Acute) DVT prophylaxis (Acute) Alcohol withdrawal (Acute) Anxiety (Chronic) Alcohol dependence (Acute) Sexual dysfunction (Acute) Excessive gas (Acute) Pudendal neuralgia (Acute) White coat syndrome without diagnosis of hypertension (Acute) Pelvic pain (Acute) Cervicalgia (Acute) Chronic rhinitis (Acute 12/21/91) Allergy Dr Meza 06/2012: chandu argueta Labile hypertension (Chronic 02/24/13) high in PM, good in office in AM; elevated at research staff member's Overweight (Acute 09/21/08) Solar keratosis (Acute 12/04/14) Medical History Anxiety Alcoholism Gastroesophageal reflux disease (02/24/13) pantoprazole responsive (research staff member); freddy resp sx Hyperlipidemia (01/05/12) calc. risk 5% (12/2011); goal LDL<130 Surgical History No pertinent past surgical history Family History Mother Age: 81 ETOH abuse Father Age: 85 Diabetes Myocardial infarction Heart disease Hypertension Other Hyperlipidemia Social History (Updated 04/25/24 @ 02:56 by Gerard Frazier) Smoking/Tobacco Use Status: Never Smoking risk assessment performed?: Yes Alcohol Intake: current Alcohol Intake frequency: 3 or more drinks per day Alcohol type: hard liquor Counseling provided: other Details: 10/09/21 no alcohol x 30 days Drug use: Never Substance use type: does not use Caregiver/Support person: No Household members: spouse and children Housing: house Number of Children: 3 Communication Needs: Corrective 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 Pets and animals: Yes Pets and animals: cat(s) Sexually active: Yes Do you think of yourself as: straight/heterosexual Current gender identity: male What is your relationship status?: How often do you talk on the phone with friends or family?: three or more times per week How often do you get together with friends or relatives?: three or more times per week How often do you attend baptist or yarsani services?: decline to answer Do you belong to any clubs or organized social groups?: yes Panel score (0-1 are the most socially isolated patients): 3 What type of physical activity do you participate in: bicycling, weight lifting and running Duration: 60-90 minutes/day Frequency: daily Kala/Mormonism: None Special kala needs: No Seatbelt use: sometimes Helmet use: Yes Drive intox or ride w/intox delivery driver/supervisor: No Do you feel safe at home: Yes Do you feel safe in your relationship?: Yes Additional Social history: Lives in [place], getting divorce from of 31 year. Grown children. 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 [facility] [facility] Allergies and Home Medications Allergies Allergy/AdvReac Type Severity Reaction Status Date / Time Sulfa (Sulfonamide Allergy Unknown Other (See Verified 04/24/24 22:19 Antibiotics) Comment) sulfamethoxazole (From Allergy Unknown 03/08/18-pt Verified 04/24/24 22:19 Bactrim) reports had a blister on his lip trimethoprim (From Bactrim) Allergy Unknown blister on Verified 04/24/24 22:19 mouth lisinopril AdvReac Intermediate Dry Cough Verified 04/24/24 22:19 Home Medications ?Medication ?Instructions ?Recorded ?Confirmed ?Type naltrexone 50 mg tablet 50 mg PO DAILY #90 tabs 07/12/23 04/24/24 Rx sildenafil 50 mg tablet 50 mg PO DAILY PRN sexual activity 01/24/24 04/24/24 Rx #30 tabs atorvastatin 40 mg tablet 40 mg PO QHS #90 tabs 03/02/24 04/24/24 Rx alprazolam 1 mg tablet 1 mg PO QHS PRN sleep #30 tabs 03/20/24 04/24/24 Rx Exam Narrative Exam Narrative: GEN: Sleepy, eyes closed, but arouses to alert, oriented, terse in responses to questions but cooperative and gives linear history. Minimal distress at rest. HEENT: Head atraumatic. Conjunctiva clear, no icterus. PEERL, EOMI. no rhinorrhea. MMM, OP benign. Neck is supple with no masses or lymphadenopathy, trachea midline LUNGS: CTAB with normal effort CV: RRR with no murmurs, gallops, or rubs. ABD: active bowel sounds, soft, nontender and nondistended. No masses. EXT: no cyanosis, clubbing, or edema MSK: No joint redness or swelling. NEURO: CN 2-12 grossly intact. Normal movement of 4 extremities. Normal speech and coordination grossly. I did not try to walk him. No tremor currently. SKIN: No rashes. Bruising right flank, scape right knee. PSYCH: mildly anxious mood and affect, guarded. no hallucinations or delusions evident. Results Imaging Abdomen CT scan report/results: report reviewed (No acute abdominal or pelvic abnormality. ) CT scan - chest: report reviewed (No acute thoracic abnormality. ) CT scan - pelvis: report reviewed (No acute abdominal or pelvic abnormality. ) EKG: report reviewed and image reviewed (sinus tachycardia rate 104, nl axis, intervals. No ST abnormalities) Labs 04/24/24 22:30 04/24/24 22:30 Labs: Laboratory Results - last 24 hr 04/24/24 04/24/24 22:30 23:10 WBC 13.15 H RBC 5.76 Hgb 18.4 H Hct 52.3 H MCV 91 MCH 31.9 MCHC 35.2 RDW 11.4 L Plt Count 243 MPV 10.0 Immature Gran % 0.5 Neutrophils % 87.2 Lymphocytes % 8.2 Monocytes % 3.3 Eosinophils % 0.3 Basophils % 0.5 Nucleated RBC % 0.0 Absolute Neutrophils 11.47 H Absolute Lymphocytes 1.08 L Absolute Monocytes 0.43 Absolute Eosinophils 0.04 Absolute Basophils 0.07 PT 9.9 INR 1.0 Sodium 146 H Potassium 4.0 Chloride 106 Carbon Dioxide 29.6 Anion Gap 10.4 BUN 11 Creatinine 1.0 Est GFR (CKD-EPI 2020) 88.88 Glucose 141 H Calcium 8.9 Magnesium 2.0 Total Bilirubin 0.58 AST 59 H ALT 99 H Alkaline Phosphatase 73 Total Protein 7.9 Albumin 4.4 Lipase 50 Urine Color Yellow Urine Clarity Clear Urine pH 7.0 Ur Specific [place] 1.020 Urine Protein 30 H Urine Ketones 15 H Urine Blood Negative Urine Nitrite Negative Urine Bilirubin Negative Urine Urobilinogen 0.2 Ur Leukocyte Esterase Negative Urine RBC 0-2 Urine WBC 0-2 Ur Epithelial Cells Rare Urine Crystals Negative Urine Bacteria Negative Urine Casts Negative Urine Mucus Trace Ur Culture Indicated? No Urine Glucose Negative Urine Opiates Screen Negative Urine Methadone Screen Negative Ur Barbiturates Screen Negative Ur Tricyclics Screen Negative Ur Amphetamines Screen Negative U Benzodiazepines Scrn Negative Urine Cocaine Screen Negative Ur THC Screen Negative Ethyl Alcohol 344.0 H Last Vital Signs Temp 37.0 C 04/24/24 22:13 Pulse 89 04/25/24 00:46 Resp 16 04/25/24 00:50 BP 120/75 04/25/24 00:46 Pulse Ox 93 04/25/24 00:50 PAWSS Have you Been Recently Intoxicated or Drunk Within the Last 30 days?: Yes Have you Ever Experienced Previous Episodes of Alcohol Withdrawal?: Yes Have you ever Experienced Withdrawal Seizures?: No Have you ever Experienced Delirium Tremens(DT)s?: No Have you ever undergone Alcohol Rehabilitation Treatment (i.e, inpt ot outpatient treatment programs)?: Yes Have you ever Experienced Blackouts?: Yes Have you ever Combined Alcohol with other Downers within the last 90 days?: No Have you ever Combined Alcohol with any other Substance of Abuse during the last 90 days?: No Positive Blood Alcohol level on Presentation? [PCS.BAL]: Yes Evidence of Increased Autonomic Activity (i.e. HR>120, tremor, sweating, agitation, nausea)?: No Result: 5 Time Spent Time spent with Patient: >75 minutes Time was spent: preparing to see the patient(eg.review tests), obtaining and/or reviewing separately otained hiistory, ordering medications,tests, procedures, referring, communicating with other health animal care supervisor, indepentently interpreting results, counseling the patient and care coordination
--- NOTE | 2024-04-25 03:47 | W.PC.ACHO ---
Registration Status: Primary Language: Preferred Language: ED Information & Data Chief Complaint ETOHWithdr 04/24/24 22:17 Chief Complaint ETOHWithdr 04/24/24 22:13 Triage Note Pt c/o R side/rib pain for 04/24/24 22:13 years and is getting worse. Pt states he has fallen several times lately. +ETOH x 8 days now here to get sober. 1/2 gallon of whiskey today. Prior rehab hx. Last detox = 10 days ago at home. No seizures in the past. Medical / Surgical History (Last Reviewed 04/25/24 @ 02:54 by Gerard Frazier) Anxiety Gastroesophageal reflux disease (02/24/13) Alcoholism Hyperlipidemia (01/05/12) (Last Reviewed 04/25/24 @ 02:54 by Gerard Frazier) No pertinent past surgical history Most Recent Vital Signs Temperature 37.0 C 04/24/24 22:13 Temperature Source Temporal Artery Scan 04/24/24 22:13 Pulse 89 04/25/24 00:46 Pulse 87 04/25/24 00:50 Respiratory Rate 16 04/25/24 00:50 Respiratory Effort Normal 04/24/24 22:17 Respiratory Pattern Normal 04/25/24 02:16 Blood Pressure 120/75 04/25/24 00:46 Blood Pressure Mean 86 04/25/24 00:46 Blood Pressure Position Sitting 04/24/24 22:13 Pulse Oximetry 93 04/25/24 00:50 Oxygen Delivery Method Room Air 04/24/24 22:13 Oxygen Flow Rate 0 04/24/24 22:13 Pain Level 7 04/24/24 22:13 Allergies Sulfa (Sulfonamide Antibiotics) Allergy (Unknown, Verified 04/24/24 22:19) Other (See Comment) Patient states not an allergy sulfamethoxazole (From Bactrim) Allergy (Unknown, Verified 04/24/24 22:19) 03/08/18-pt reports had a blister on his lip Patient states not an allergy trimethoprim (From Bactrim) Allergy (Unknown, Verified 04/24/24 22:19) blister on mouth Patient states not an allergy lisinopril Adverse Reaction (Intermediate, Verified 04/24/24 22:19) Dry Cough Active Medications Generic Name Dose Route Start Last Admin Trade Name Freq PRN Reason Stop Dose Admin Iohexol 100 ml 04/24/24 23:45 04/24/24 23:55 Omnipaque 350 Mg/Ml 100 Ml Btl IJ 05/24/24 23:59 100 ml DIRECTED JOHNNY Administration Sodium Chloride 50 ml 04/24/24 23:45 04/24/24 23:54 Normal Saline - Diluent 50 Ml Vial IJ 50 ml .FOR DI USE JOHNNY Administration IV IV Catheter Type [Right Peripheral IV Antecubital] IV Catheter Gauge [Right 18 Antecubital] Diet Orders Category Date Time Status Regular/Normal [DIET] Nutrition 04/25/24 Breakfast Active Diagnostics 04/25/24 04/24/24 04/24/24 Range/Units 05:35 23:10 22:30 WBC 13.15 H (4.4-10.8) 10^3/uL RBC 5.76 (4.36-5.78) 10^6/uL Hgb 18.4 H (13.5-17.5) g/dL Hct 52.3 H (40.0-50.0) % MCV 91 (80-95) fL MCH 31.9 (27.0-33.0) pg MCHC 35.2 (32.0-36.0) % RDW 11.4 L (11.8-14.1) % Plt Count 243 (130-400) 10^3/uL MPV 10.0 (8.0-11.0) fL Immature Gran % 0.5 % Neutrophils % 87.2 % Lymphocytes % 8.2 % Monocytes % 3.3 % Eosinophils % 0.3 % Basophils % 0.5 % Nucleated RBC % 0.0 (0.0-0.3) % Absolute Neutrophils 11.47 H (1.2-6.7) 10^3/uL Absolute Lymphocytes 1.08 L (1.2-3.4) 10^3/uL Absolute Monocytes 0.43 (0.1-0.8) 10^3/uL Absolute Eosinophils 0.04 (0.0-0.7) 10^3/uL Absolute Basophils 0.07 (0.0-0.2) 10^3/uL PT 9.9 (9.1-11.1) sec INR 1.0 (0.9-1.1) Sodium Pending 146 H (136-145) mmol/L Potassium Pending 4.0 (3.5-5.1) mmol/L Chloride Pending 106 (98-107) mmol/L Carbon Dioxide Pending 29.6 (21.0-32.0) mmol/L Anion Gap Pending 10.4 (3-11) mmol/L BUN Pending 11 (7-18) mg/dL Creatinine Pending 1.0 (0.70-1.30) mg/dL Est GFR (CKD-EPI 2020) Pending 88.88 (mL/min/1.73m2) Glucose Pending 141 H (74-106) mg/dL Calcium Pending 8.9 (8.5-10.1) mg/dL Magnesium Pending 2.0 (1.8-2.4) mg/dL Total Bilirubin Pending 0.58 (0.2-1.0) mg/dL Conjugated Bilirubin Pending AST Pending 59 H (15-37) U/L ALT Pending 99 H (16-63) U/L Alkaline Phosphatase Pending 73 (46-116) U/L Total Protein Pending 7.9 (6.4-8.2) g/dL Albumin Pending 4.4 (3.4-5.0) g/dL Lipase 50 (16-77) U/L Urine Color Yellow (Yellow) Urine Clarity Clear (Clear) Urine pH 7.0 (5-8) Ur Specific [place] 1.020 (1.005-1.025) Urine Protein 30 H (Neg-Trace) mg/dL Urine Ketones 15 H (Negative) mg/dL Urine Blood Negative (Negative) Urine Nitrite Negative (Negative) Urine Bilirubin Negative (Negative) Urine Urobilinogen 0.2 (Up to 0.2) mg/dL Ur Leukocyte Esterase Negative (Negative) Urine RBC 0-2 (0-2) HPF Urine WBC 0-2 (0-5) HPF Ur Epithelial Cells Rare (Negative) HPF Urine Crystals Negative (Negative) HPF Urine Bacteria Negative (Negative) HPF Urine Casts Negative (Negative) LPF Urine Mucus Trace (Negative) Ur Culture Indicated? No Urine Glucose Negative (Negative) mg/dL Urine Opiates Screen Negative (Negative) Urine Methadone Screen Negative (Negative) Ur Barbiturates Screen Negative (Negative) Ur Tricyclics Screen Negative (Negative) Ur Amphetamines Screen Negative (Negative) U Benzodiazepines Scrn Negative (Negative) Urine Cocaine Screen Negative (Negative) Ur THC Screen Negative (Negative) Ethyl Alcohol 344.0 H (<10) mg/dL [id number] Documentation Fingerstick Glucose Start: 04/24/24 22:23 Freq: .Stat Status: Active Protocol: Activity Type Activity Date Activity User E-sign Co-sign Detail Recorded Client Recorded Date Recorded By Document 04/24/24 22:31 BKG DAEMON(3) [id number] 04/24/24 22:32 BKG DAEMON(4) Intake and Output - 24 Hour Total 04/24/24 22:07 thru 04/25/24 01:00 Intake Total 2100 Balance 2100 Weight 90.718 kg Intake: IV 2100 Falls Risk Assessment History of Falls Previous History 04/24/24 22:17 Contributing Factors Impairments 04/24/24 22:17 Ambulatory Aids Independent 04/24/24 22:17 Tubes/Lines None 04/24/24 22:17 Gait Evaluation W/any additional score 04/24/24 22:17 Cognition No cognitive impairment 04/24/24 22:17 Fall Total Score 38 04/24/24 22:17 Level of Risk Moderate Risk 04/24/24 22:17 Problems (Last Reviewed 04/25/24 @ 02:54 by Gerard Frazier) Acute alcoholic hepatitis (Acute) DVT prophylaxis (Acute) Alcohol withdrawal (Acute) Anxiety (Chronic) Alcohol dependence (Acute) Labile hypertension (Chronic 02/24/13) v v v v v v v v v Sending and/or Receiving Nurses: Please use comment section below to note any information pertinent to the patient hand-off not included above. Information / Comments: patient presented to the ER with son being intoxicated long history of alcoholism. Been sober for the past 6months. Hes going through a divorce and his dad recently. CIWA 13 initially. Received ativan 1mg IV now CIWA 9. Initially tachycardic in the ER. Patient reported intense anxiety, and he is afraid because he knows he will withdraw. No DT presents at this time. He fell earlier lastnight. Xray done no acute injury detected from. Patient state he is looking for help and he wants to detox again. State previous admission he received phenobarbital which made him feel very sick. State he does better on benzos. NSR HR 90 RR 17 nonlabored Bp 111/84mmhg. Patient reported that he started drinking again 8-9 days ago. Report received from:[place] [facility]
[2024-04-25] MEDS: Ibuprofen 600 MG TAB PO ×2 (04:44→13:46)
[2024-04-25] MEDS: LORazepam 1 MG TAB PO/SL ×5 (04:44→13:27)
[2024-04-25] MEDS: Multivitamin TAB 1 TAB PO (07:36)
[2024-04-25] MEDS: Thiamine 100 MG TAB PO (07:36)
[2024-04-25] MEDS: Folic Acid 1 MG TAB PO (07:37)
[2024-04-25] MEDS: Normal Saline Flush 10 ML SYR IVP (07:37)
[2024-04-25 08:26] LABS: ALT 73 U/L (16-63); AST 44 U/L (15-37); Albumin 3.6 g/dL (3.4-5.0); Alkaline Phosphatase 61 U/L (46-116); Anion Gap 6.7 mmol/L (3-11); BUN 8 mg/dL (7-18); Bilirubin, Direct 0.2 mg/dL (0.0-0.2); Bilirubin, Total 0.61 mg/dL (0.2-1.0); CO2 31.3 mmol/L (21.0-32.0); CREATININE 0.9 mg/dL (0.70-1.30); Calcium 8.5 mg/dL (8.5-10.1); Chloride 107 mmol/L (98-107); Estimated GFR 100.86 (mL/min/1.73m2); Glucose 113 mg/dL (74-106); Magnesium 1.7 mg/dL (1.8-2.4); Potassium 3.6 mmol/L (3.5-5.1); Sodium 145 mmol/L (136-145); Total Protein 6.5 g/dL (6.4-8.2)
--- NOTE | 2024-04-25 09:53 | INITIAL_ITS ---
Date of service: 04/25/24 Time of Service: 09:53 Care Management Initial Assmt Initial Assessment Reason for Hospitalization: ETOH withdrawal Functional Status/Living Situation Patient Presentation: Ed was sitting up in bed when CM meet with him. He was polite and answered questions appropriately, but did not volunteer additional information. Alcides stated that he and his have been for about a year after 30+ years of marriage . He identified alcohol use by both parties as a major contributing factor. He has been through rehab in the past and has had long periods of sob riety. He verbalized wanting to live a sober lifestyle stating that everything is better when he is sober. 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 He is independent at baseline and does not receive any community services. As the visit continued, Alcides seemed more irritable. His CIWA scores have ranged from 6 to 12 today and he has received several doses of Ativan. Ed i ndicated to CM that he was thinking of leaving. He thought the provider would do a traditional discharge and CM offered to inform the provider about his wishes. CM offered to contact a project manager/team coach and Ed agreed. As Ed was not medically ready for discharge, the provider could not discharge him in the usual manner so Ed chose to leave AMA, however he did meet with the project manager/team coach before he le ft. Town of Residence: [place] Resides with: Child Employment Status: Employed ([employer] in [place]) Instrumental Activities of Daily Living (ADLs): Independent Medications Medication Management: No Issues/Barriers identified Advance Directives Advance Directives: Do you have an Advance Directive: N 04/19/19 10:04 AD On File at [facility]: N 03/27/14 10:17 Date Asked 04/25/24 04/25/24 08:58 AD Date Reviewed COLST On File at [facility] COLST Date Scanned Code Status Resuscitation Status Full Code Insurance Coverage/Financial Issues Insurance: BC/BS Care Team Visit Care Team Role Provider Type Ross Pugh DO Primary Care Provider OSTEOPATHIC DOCTOR Marino Argueta MD Emergency Provider [facility] STAFF PHYSICIAN Gerard Frazier Admit Provider [facility] STAFF PHYSICIAN Attending Provider Discharge Potential Discharge Needs: PCP F/U Appt Anticipated Barriers to Discharge: None Identified Patient/Family Education Needs: Review discharge instructions, discuss Ask Me Three Transportation: Private vehicle Plan: Alcides left AMA this afternoon. PFSH All Active Problems (Updated 04/25/24 @ 03:12 by Gerard Frazier) Acute alcoholic hepatitis (Acute) Discharge planning issues (Acute) DVT prophylaxis (Acute) Alcohol withdrawal (Acute) Anxiety (Chronic) Alcohol dependence (Acute) Sexual dysfunction (Acute) Excessive gas (Acute) Pudendal neuralgia (Acute) White coat syndrome without diagnosis of hypertension (Acute) Pelvic pain (Acute) Cervicalgia (Acute) Chronic rhinitis (Acute 12/21/91) Allergy Dr Meza 06/2012: chandu argueta Labile hypertension (Chronic 02/24/13) high in PM, good in office in AM; elevated at tube laser operator's Overweight (Acute 09/21/08) Solar keratosis (Acute 12/04/14) Medical History Anxiety Alcoholism Gastroesophageal reflux disease (02/24/13) 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 risk 5% (12/2011); goal LDL<130 Surgical History No pertinent past surgical history Family History Mother Age: 81 ETOH abuse Father Age: 85 Diabetes Myocardial infarction Heart disease Hypertension Other Hyperlipidemia Social History (Updated 04/25/24 @ 02:56 by Gerard Frazier) Smoking/Tobacco Use Status: Never Smoking risk assessment performed?: Yes Alcohol Intake: current Alcohol Intake frequency: 3 or more drinks per day Alcohol type: hard liquor Counseling provided: other Details: 10/09/21 no alcohol x 30 days Drug use: Never Substance use type: does not use Caregiver/Support person: No Household members: spouse and children Housing: house Number of Children: 3 Communication Needs: Corrective 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 Pets and animals: Yes Pets and animals: cat(s) Sexually active: Yes Do you think of yourself as: straight/heterosexual Current gender identity: male What is your relationship status?: How often do you talk on the phone with friends or family?: three or more times per week How often do you get together with friends or relatives?: three or more times per week How often do you attend amish or mandaen services?: decline to answer Do you belong to any clubs or organized social groups?: yes Panel score (0-1 are the most socially isolated patients): 3 What type of physical activity do you participate in: bicycling, weight lifting and running Duration: 60-90 minutes/day Frequency: daily Kala/Adventism: None Special kala needs: No Seatbelt use: sometimes Helmet use: Yes Drive intox or ride w/intox courtesy bus 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 Additional Social history: Lives in [place], getting divorce from of 31 year. Grown children. 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
[2024-04-25] MEDS: Magnesium Chloride 64 MG TABCR PO (10:03)
--- NOTE | 2024-04-25 13:09 | PGE_ITS ---
Date of Service Date of service: 04/25/24 Time of Service: 13:09 Subjective Subjective Patient reports: no new complaints Exam Narrative Exam Narrative: GEN: Sleepy, eyes closed, but arouses to alert, oriented, terse in responses to questions but cooperative and gives linear history. Minimal distress at rest. HEENT: Head atraumatic. Conjunctiva clear, no icterus. PEERL, EOMI. no rhinorrhea. MMM, OP benign. Neck is supple with no masses or lymphadenopathy, trachea midline LUNGS: CTAB with normal effort CV: RRR with no murmurs, gallops, or rubs. ABD: active bowel sounds, soft, nontender and nondistended. No masses. EXT: no cyanosis, clubbing, or edema MSK: No joint redness or swelling. NEURO: CN 2-12 grossly intact. Normal movement of 4 extremities. Normal speech and coordination grossly. I did not try to walk him. No tremor currently. SKIN: No rashes. Bruising right flank, scape right knee. PSYCH: mildly anxious mood and affect, guarded. no hallucinations or delusions evident. Objective Last Vital Signs Temp 37 C 04/25/24 11:28 Pulse 84 04/25/24 11:28 Resp 20 04/25/24 11:28 BP 151/100 H 04/25/24 11:28 Pulse Ox 95 04/25/24 11:28 Laboratory Results - last 24 hr 04/24/24 04/24/24 04/25/24 22:30 23:10 07:40 WBC 13.15 H RBC 5.76 Hgb 18.4 H Hct 52.3 H MCV 91 MCH 31.9 MCHC 35.2 RDW 11.4 L Plt Count 243 MPV 10.0 Immature Gran % 0.5 Neutrophils % 87.2 Lymphocytes % 8.2 Monocytes % 3.3 Eosinophils % 0.3 Basophils % 0.5 Nucleated RBC % 0.0 Absolute Neutrophils 11.47 H Absolute Lymphocytes 1.08 L Absolute Monocytes 0.43 Absolute Eosinophils 0.04 Absolute Basophils 0.07 PT 9.9 INR 1.0 Sodium 146 H 145 Potassium 4.0 3.6 Chloride 106 107 Carbon Dioxide 29.6 31.3 Anion Gap 10.4 6.7 BUN 11 8 Creatinine 1.0 0.9 Est GFR (CKD-EPI 2020) 88.88 100.86 Glucose 141 H 113 H Calcium 8.9 8.5 Magnesium 2.0 1.7 L Total Bilirubin 0.58 0.61 Conjugated Bilirubin 0.2 AST 59 H 44 H ALT 99 H 73 H Alkaline Phosphatase 73 61 Total Protein 7.9 6.5 Albumin 4.4 3.6 Lipase 50 Urine Color Yellow Urine Clarity Clear Urine pH 7.0 Ur Specific [place] 1.020 Urine Protein 30 H Urine Ketones 15 H Urine Blood Negative Urine Nitrite Negative Urine Bilirubin Negative Urine Urobilinogen 0.2 Ur Leukocyte Esterase Negative Urine RBC 0-2 Urine WBC 0-2 Ur Epithelial Cells Rare Urine Crystals Negative Urine Bacteria Negative Urine Casts Negative Urine Mucus Trace Ur Culture Indicated? No Urine Glucose Negative Urine Opiates Screen Negative Urine Methadone Screen Negative Ur Barbiturates Screen Negative Ur Tricyclics Screen Negative Ur Amphetamines Screen Negative U Benzodiazepines Scrn Negative Urine Cocaine Screen Negative Ur THC Screen Negative Ethyl Alcohol 344.0 H PAWSS Have you Been Recently Intoxicated or Drunk Within the Last 30 days?: Yes Have you Ever Experienced Previous Episodes of Alcohol Withdrawal?: Yes Have you ever Experienced Withdrawal Seizures?: No Have you ever Experienced Delirium Tremens(DT)s?: No Have you ever undergone Alcohol Rehabilitation Treatment (i.e, inpt ot outpatient treatment programs)?: Yes Have you ever Experienced Blackouts?: Yes Have you ever Combined Alcohol with other Downers within the last 90 days?: No Have you ever Combined Alcohol with any other Substance of Abuse during the last 90 days?: No Positive Blood Alcohol level on Presentation? [PCS.BAL]: Yes Evidence of Increased Autonomic Activity (i.e. HR>120, tremor, sweating, agitation, nausea)?: No Result: 5
[2024-04-25] MEDS: Triamcinolone 0.1% OINT 15 GM TUBE TP (14:54)
--- NOTE | 2024-04-25 20:10 | DSE_ITS ---
Date of service: 04/25/24 Time of Service: 15:00 DS: Diagnosis Discharge Diagnosis (1) Alcohol withdrawal: Status: Acute (2) Alcohol dependence: Status: Acute (3) Anxiety: Status: Chronic (4) Acute alcoholic hepatitis: Status: Acute (5) Labile hypertension: Status: Chronic (6) DVT prophylaxis: Status: Acute Discharge Plan Disposition Patient Disposition: Against Medical Advice Condition: Fair Discharge Details Reason For Visit: Alcohol Withdrawal Admit Date/Time: 04/25/24 02:36 Admit Provider: Gerard Frazier Attending Provider: Gerard Frazier Primary Care Provider: Ross Pugh [facility] Course Hospital Course: History of Present Illness: The patient presents with a request for alcohol detoxification following 1-2 weeks of heavy alcohol consumption, including ? bottle of 80-proof liquor and 1? bottles of wine on 04/24. He stopped drinking 4-5 hours prior to admission. He reports multiple falls but lacks specific details or a timeline. The patient expresses a desire to stop drinking and has a history of outpatient detoxification with Dr. Pugh, including the use of alprazolam. He has experienced periods of sobriety lasting several months. Past Treatment: * Admitted overnight on 02/23/23 with the initial plan for phenobarbital detoxification, but received only lorazepam before discharge. * Discharged with a prescription for alprazolam. * Reports a severe adverse reaction to phenobarbital, including hallucinations, and denies a history of withdrawal seizures. * Has been prescribed naltrexone for AUD but has never used it. Current Complaints: * Headache, which the patient attributes to dehydration. * Requests ibuprofen, increased fluids, and lorazepam due to perceived withdrawal symptoms. Treatment Given: * Received 1 mg of lorazepam IV in the ED, which allowed him to rest. * Patient was scoring up to 12 on CIWA scale and was treated with lorazepam IV, as many as seven doses in 14 hours. * Patient received multivitamins, thiamine, folic acid, magnesium chloride for low magnesium level, potassium for low potassium level, and triamcinolone for eczema on his face. Discharge Plan: * Medication: * Continue Alprazolam as needed for withdrawal symptoms. (Has prescription from PCP) * Prescribe ibuprofen for headache and advise increased fluid intake. * Follow-Up: * Recommend outpatient detox program and counseling. * Encourage follow-up with Dr. Pugh or a specialist in addiction medicine. Patient does have capacity to make medical decisions. Patient was encouraged to stay in the hospital. Patient signed out AMA. Home Meds and New Rx's Prescriptions: New thiamine mononitrate (vit B1) [Vitamin B-1 (mononitrate)] 100 mg Tablet 100 mg PO QAM Qty: 0 0RF multivitamin [Multiple Vitamins] Tablet 1 tab PO QAM Qty: 0 0RF triamcinolone acetonide 0.1 % Ointment 1 applic topical TID Qty: 0 0RF Rx Instructions: Apply to areas on face magnesium chloride [Mag 64] 64 mg Tablet,Delayed Release (Dr/Ec) 64 mg PO DAILY Qty: 30 0RF folic acid 1 mg Tablet 1 mg PO QAM Qty: 30 0RF Continued naltrexone 50 mg tablet 50 mg PO DAILY Qty: 90 1RF sildenafil 50 mg tablet 50 mg PO DAILY PRN (Reason: sexual activity) Qty: 30 3RF Rx Instructions: administer 30 minutes to 4 hours before activity alprazolam 1 mg tablet 1 mg PO QHS PRN (Reason: sleep) Qty: 30 1RF atorvastatin 40 mg tablet 40 mg PO QHS Qty: 90 3RF Discharge Instructions Instructions: Alcohol withdrawal Additional Instructions: As you have chosen to leave the hospital against medical advice, we want to ensure you have all the necessary information to manage your health safely. * Understanding Risks: * Alcohol withdrawal can be severe and potentially life-threatening. Symptoms can include tremors, agitation, hallucinations, seizures, delirium tremens, and . * If you experience any of these symptoms, seek medical attention immediately. * Medications: * Take medications exactly as directed. You have told us you have alprazolam at home from your PCP. * Do not stop or adjust medications without consulting your healthcare provider. * Follow-Up Care: * Schedule a follow-up appointment with your healthcare provider as soon as possible. * Regular follow-up is crucial to monitor your recovery and manage any complications. * Hydration and Nutrition: * Stay well-hydrated by drinking plenty of water and fluids. * Eat a balanced diet to support your recovery and overall health. * Avoid Alcohol: * Do not consume alcohol. Returning to drinking can worsen withdrawal symptoms and lead to serious health problems. * Support Systems: * Reach out to support groups, counseling services, or a mental health professional to help with your recovery and to address any underlying issues. * Emergency Signs: * Seek immediate medical attention if you experience severe symptoms such as confusion, hallucinations, severe agitation, or seizures. * Contact Information: * For any questions or if you need immediate assistance, contact your healthcare provider or local emergency services. * Safety Measures: * Ensure you have a safe environment. Avoid situations that may trigger alcohol use or pose risks to your health and safety. ? Acknowledgment: By leaving AMA, you acknowledge that you understand the risks associated with this decision and have received these instructions. Please make sure you understand these instructions before leaving. If you have any questions or need further clarification, do not hesitate to reach out. Referrals: Ross Pugh DO [Primary Care Provider] - ([facility]) Activity:: Activity as Tolerated Equipment/Supplies:: No Equipment Needed Diet:: As Tolerated Discharge Orders Discharge Orders: Discharge Order (Routine); Ordered 04/25/24 Ordered By: Chelsea Ledezma Discharge Data Discharge Date/Time-TO BE ENTERED AT DEPARTURE: 04/25/24 16:41 DS: Summary Time Spent with Patient providing and/or coordinating discharge services: Greater than 30 minutes Status at Discharge Functional status at discharge: independent ambulation Overall status at discharge: patient is not back to baseline Mental Status: mental status grossly normal Speech and Movement: speech and movement normal Mood: congruent mood Affect: normal affect Quality:SDOH Health Related Social Needs: No Data to Display Exam Narrative Exam Narrative: GEN: awake, alert, oriented, minimal distress at rest. HEENT: Head atraumatic. Conjunctiva clear, no icterus. PEERL, EOMI. no rhinorrhea. MMM, Neck is supple with no masses or lymphadenopathy, trachea midline LUNGS: CTAB with normal effort CV: RRR with no murmurs, gallops, or rubs. ABD: active bowel sounds, soft, nontender and nondistended. No masses. EXT: no cyanosis, clubbing, or edema MSK: No joint redness or swelling. NEURO: CN 2-12 grossly intact. Normal movement of 4 extremities. Normal speech and coordination grossly. Slight tremor currently. SKIN: No rashes. Bruising right flank, scape right knee. PSYCH: mildly anxious mood and affect, guarded. no hallucinations or delusions evident. Psych Mental Status: mental status grossly normal Speech and Movement: speech and movement normal Mood: congruent mood Affect: normal affect DS: Data Vitals/I&O Vitals and I&O: Vital Signs Temperature 37 C 04/25/24 15:17 Temperature Source Temporal Artery Scan 04/25/24 15:17 Pulse 95 H 04/25/24 15:17 Pulse Rhythm Regular 04/25/24 04:00 Pulse 88 04/25/24 03:46 Respiratory Rate 20 04/25/24 15:17 Respiratory Effort Normal, Non-Labored 04/25/24 04:00 Respiratory Depth Normal 04/25/24 04:00 Respiratory Pattern Normal 04/25/24 04:00 Blood Pressure 154/100 H 04/25/24 15:17 Blood Pressure Mean 91 04/25/24 03:46 Blood Pressure Position Sitting 04/24/24 22:13 Pulse Oximetry 95 04/25/24 15:17 Oxygen Delivery Method Room Air 04/25/24 15:17 Oxygen Flow Rate 0 04/25/24 15:17 Pain Level 6 04/25/24 04:44 Comment RN notified. 04/25/24 08:14 Intake & Output 04/24/24 04/25/24 04/25/24 23:59 11:59 23:59 Intake Total 101 / 101 2000 / 3000 1000 / 3000 Output Total 425 / 425 Balance 101 / 101 1575 / 2575 1000 / 2575 Weight 90.718 kg 90.718 kg Intake: IV 101 / 101 2000 / 3000 1000 / 3000 Output: Urine 425 / 425 Other: Urine Color Straw Urine Appearance Clear Urine Odor Normal Comment voided independently in toilet Voiding Methods Urinal Data Completed and Pending Labs on day of discharge: Labs from last 24 hours 04/25/24 04/24/24 04/24/24 07:40 23:10 22:30 WBC 13.15 H RBC 5.76 Hgb 18.4 H Hct 52.3 H MCV 91 MCH 31.9 MCHC 35.2 RDW 11.4 L Plt Count 243 MPV 10.0 Immature Gran % 0.5 Neutrophils % 87.2 Lymphocytes % 8.2 Monocytes % 3.3 Eosinophils % 0.3 Basophils % 0.5 Nucleated RBC % 0.0 Absolute Neutrophils 11.47 H Absolute Lymphocytes 1.08 L Absolute Monocytes 0.43 Absolute Eosinophils 0.04 Absolute Basophils 0.07 PT 9.9 INR 1.0 Sodium 145 146 H Potassium 3.6 4.0 Chloride 107 106 Carbon Dioxide 31.3 29.6 Anion Gap 6.7 10.4 BUN 8 11 Creatinine 0.9 1.0 Est GFR (CKD-EPI 2020) 100.86 88.88 Glucose 113 H 141 H Calcium 8.5 8.9 Magnesium 1.7 L 2.0 Total Bilirubin 0.61 0.58 Conjugated Bilirubin 0.2 AST 44 H 59 H ALT 73 H 99 H Alkaline Phosphatase 61 73 Total Protein 6.5 7.9 Albumin 3.6 4.4 Lipase 50 Urine Color Yellow Urine Clarity Clear Urine pH 7.0 Ur Specific [place] 1.020 Urine Protein 30 H Urine Ketones 15 H Urine Blood Negative Urine Nitrite Negative Urine Bilirubin Negative Urine Urobilinogen 0.2 Ur Leukocyte Esterase Negative Urine RBC 0-2 Urine WBC 0-2 Ur Epithelial Cells Rare Urine Crystals Negative Urine Bacteria Negative Urine Casts Negative Urine Mucus Trace Ur Culture Indicated? No Urine Glucose Negative Urine Opiates Screen Negative Urine Methadone Screen Negative Ur Barbiturates Screen Negative Ur Tricyclics Screen Negative Ur Amphetamines Screen Negative U Benzodiazepines Scrn Negative Urine Cocaine Screen Negative Ur THC Screen Negative Ethyl Alcohol 344.0 H PFSH All Active Problems (Updated 04/25/24 @ 03:12 by Gerard Frazier) Acute alcoholic hepatitis (Acute) Discharge planning issues (Acute) DVT prophylaxis (Acute) Alcohol withdrawal (Acute) Anxiety (Chronic) Alcohol dependence (Acute) Sexual dysfunction (Acute) Excessive gas (Acute) Pudendal neuralgia (Acute) White coat syndrome without diagnosis of hypertension (Acute) Pelvic pain (Acute) Cervicalgia (Acute) Chronic rhinitis (Acute 12/21/91) Allergy Dr Meza 06/2012: chandu argueta Labile hypertension (Chronic 02/24/13) high in PM, good in office in AM; elevated at manager culture's Overweight (Acute 09/21/08) Solar keratosis (Acute 12/04/14) Medical History Anxiety Alcoholism Gastroesophageal reflux disease (02/24/13) 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 risk 5% (12/2011); goal LDL<130 Surgical History No pertinent past surgical history Family History Mother Age: 81 ETOH abuse Father Age: 85 Diabetes Myocardial infarction Heart disease Hypertension Other Hyperlipidemia Social History (Updated 04/25/24 @ 02:56 by Gerard Frazier) Smoking/Tobacco Use Status: Never Smoking risk assessment performed?: Yes Alcohol Intake: current Alcohol Intake frequency: 3 or more drinks per day Alcohol type: hard liquor Counseling provided: other Details: 10/09/21 no alcohol x 30 days Drug use: Never Substance use type: does not use Caregiver/Support person: No Household members: spouse and children Housing: house Number of Children: 3 Communication Needs: Corrective 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 Pets and animals: Yes Pets and animals: cat(s) Sexually active: Yes Do you think of yourself as: straight/heterosexual Current gender identity: male What is your relationship status?: How often do you talk on the phone with friends or family?: three or more times per week How often do you get together with friends or relatives?: three or more times per week How often do you attend evangelical or sabianism services?: decline to answer Do you belong to any clubs or organized social groups?: yes Panel score (0-1 are the most socially isolated patients): 3 What type of physical activity do you participate in: bicycling, weight lifting and running Duration: 60-90 minutes/day Frequency: daily Kala/Samaritan: None Special kala needs: No Seatbelt use: sometimes Helmet use: Yes Drive intox or ride w/intox driver sales: No Do you feel safe at home: Yes Do you feel safe in your relationship?: Yes Additional Social history: Lives in [place], getting divorce from of 31 year. Grown children. 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
== END 2024-04-25 16:41 | disposition left against medical advice (07) | DRG 433 ==
LOC: ER 04-25 03:07 → MS 04-25 03:55
PROVIDERS: Admitting Provider Family Medicine; Emergency Provider Emergency Medicine; PCP Family Medicine; Visit Provider Family Medicine
DX: K70.10 Alcoholic hepatitis without ascites; F10.239 Alcohol dependence with withdrawal, unspecified; F41.9 Anxiety disorder, unspecified; I10 Essential (primary) hypertension; R29.6 Repeated falls; R10.2 Pelvic and perineal pain; K21.9 Gastro-esophageal reflux disease without esophagitis; M54.2 Cervicalgia; R51.9 Headache, unspecified
CPT/HCPCS: 00123; 36415; 36416; 74177; 80048; 80053; 80076; 80307; 82962; 83690; 93005; 96361; 96374; 96375; 99285; 70450; 71260; 72125; 80320; 81003; 81015; 83735; 85025; 85610; 93010; 99234; J2060; J3411; J3490

== ENCOUNTER 2024-06-01 16:31 | Inpatient (IN) | payer BC, SELFPAY ==
[2024-06-01] VITALS (44 sets, daily range): BP systolic 131–167; BP diastolic 87–109; PULSE 0–128; RESP 13–25; TEMP 36.6–37.1; O2SAT 88–97
--- NOTE | 2024-06-01 16:53 | W.ED.GENAD ---
Discharge Plan Disposition Patient Disposition: Admit to [facility] Condition: Stable Discharge Details Clinical Impression: Hypernatremia, Alcohol use disorder Primary Care Provider: Ross Pugh ED Provider: Sukumar Azevedo Home Meds and New Rx's Prescriptions: No Action naltrexone 50 mg tablet 50 mg PO DAILY Qty: 90 1RF sildenafil 50 mg tablet 50 mg PO DAILY PRN (Reason: sexual activity) Qty: 30 3RF Rx Instructions: administer 30 minutes to 4 hours before activity alprazolam 1 mg tablet 1 mg PO QHS PRN (Reason: sleep) Qty: 30 1RF atorvastatin 40 mg tablet 40 mg PO QHS Qty: 90 3RF thiamine mononitrate (vit B1) [Vitamin B-1 (mononitrate)] 100 mg Tablet 100 mg PO QAM Qty: 0 0RF multivitamin [Multiple Vitamins] Tablet 1 tab PO QAM Qty: 0 0RF triamcinolone acetonide 0.1 % Ointment 1 applic topical TID Qty: 0 0RF Rx Instructions: Apply to areas on face magnesium chloride [Mag 64] 64 mg Tablet,Delayed Release (Dr/Ec) 64 mg PO DAILY Qty: 30 0RF folic acid 1 mg Tablet 1 mg PO QAM Qty: 30 0RF HPI General Date/Time Provider Initiated Documentation: 06/01/24 16:37. HPI Narrative: 54 year-old male presents to ED today by POV with a friend with a chief complaint of acute alcohol intoxication- patient states he has been on a 5-day fernandez, having a 750mL of Maker[employer] Garrick today. Patient endorses being sober for 7-8 months of the past year, but has had long-term problems with alcohol, states it is a roller coaster. Patient has had admissions for detox before but denies known severe ETOH withdrawal symptoms or known withdrawal seizures. Quality described as just having a bad problem with alcohol, no radiation to vomiting, endorses no good intake of hydration or nutrition in the past day or two besides alcohol. Severity is described as severe. Palliating factors include nothing specific attempted, doesn't currently have a [employer] or anyone. Provoking factors include nothing specific- states his Father in December. Events leading up to the incident/Associated Symptoms: Patient is employed, states he feels safe at home, lives independently. Patient not anticoagulated. Related Data Home Medications ?Medication ?Instructions ?Recorded ?Confirmed naltrexone 50 mg tablet 50 mg PO DAILY #90 tabs 07/12/23 06/01/24 sildenafil 50 mg tablet 50 mg PO DAILY PRN sexual activity 01/24/24 06/01/24 #30 tabs atorvastatin 40 mg tablet 40 mg PO QHS #90 tabs 03/02/24 06/01/24 folic acid 1 mg tablet 1 mg PO QAM #30 tabs 04/25/24 06/01/24 magnesium chloride 64 mg 64 mg PO DAILY #30 tabs 04/25/24 06/01/24 (magnesium chloride) tablet,delayed release (Mag 64) multivitamin (Multiple Vitamins 1 tab PO QAM #0 tabs 04/25/24 06/01/24 tablet) thiamine mononitrate (vit B1) 100 100 mg PO QAM #0 tabs 04/25/24 06/01/24 mg tablet (Vitamin B-1 (mononitrate)) triamcinolone acetonide 0.1 % 1 applic topical TID #0 grams 04/25/24 06/01/24 topical ointment alprazolam 1 mg tablet 1 mg PO QHS PRN sleep #30 tabs 05/12/24 06/01/24 Previous Rx's ?Medication ?Instructions ?Recorded naltrexone 50 mg tablet 50 mg PO DAILY #90 tabs 07/12/23 sildenafil 50 mg tablet 50 mg PO DAILY PRN sexual activity 01/24/24 #30 tabs atorvastatin 40 mg tablet 40 mg PO QHS #90 tabs 03/02/24 folic acid 1 mg tablet 1 mg PO QAM #30 tabs 04/25/24 magnesium chloride 64 mg 64 mg PO DAILY #30 tabs 04/25/24 (magnesium chloride) tablet,delayed release (Mag 64) multivitamin (Multiple Vitamins 1 tab PO QAM #0 tabs 04/25/24 tablet) thiamine mononitrate (vit B1) 100 100 mg PO QAM #0 tabs 04/25/24 mg tablet (Vitamin B-1 (mononitrate)) triamcinolone acetonide 0.1 % 1 applic topical TID #0 grams 04/25/24 topical ointment alprazolam 1 mg tablet 1 mg PO QHS PRN sleep #30 tabs 05/12/24 Allergies Allergy/AdvReac Type Severity Reaction Status Date / Time lisinopril AdvReac Intermediate Dry Cough Verified 06/01/24 16:37 General Stated Complaint: ETOHWithdr GREGORY: 3 Review of Systems All systems reviewed & are unremarkable except as noted in HPI and below Exam Narrative Exam Narrative: GENERAL APPEARANCE: Well-nourished, non-toxic, awake and alert, atraumatic, no acute distress. SKIN: Warm, pink, dry, intact, without rashes/lesions/ulcerations. HEAD: Normocephalic, atraumatic, normal hair distribution for gender/age. EYES: Normal conjunctiva, no exudates on lids/lashes. ENT: Nares patent, no circumoral cyanosis, no facial swelling NECK: Supple, trachea midline, painless cervical ROM. LUNGS/CHEST: Lungs CTA bilaterally, non-labored respirations, normal A/P diameter, symmetrical expansion, no chest wall deformity HEART (CV/PV): Regular rate and rhythm without murmur, no peripheral edema, no JVD. ABDOMEN: Soft, non-distended, no guarding. MSK: Normal ROM, no swelling/deformity to bilateral UEs or LEs, moving all extremities without weakness, no cyanosis, spine midline without tenderness, normal curvature. NEURO: Mental Status AAOx4 - alert to person, place, time, events No facial droop, no forehead involvement. Motor: No focal weakness - strength 5/5 in bilateral UEs and LEs, proximal and distal, symmetric. Sensory: sensation intact to light touch globally. Gait normal: patient ambulated without ataxia into ED room. PSYCH: euthymic, cooperative, pleasant, appropriate speech Course Vital Signs Vital signs: Vital Signs Temperature 36.6 C 06/01/24 16:33 Pulse 122 H 06/01/24 16:33 Respiratory Rate 20 06/01/24 16:33 Blood Pressure 142/106 H 06/01/24 16:33 Pulse Oximetry 93 06/01/24 16:33 Temperature 36.6 C 06/01/24 16:33 Pulse 122 H 06/01/24 16:33 Respiratory Rate 20 06/01/24 16:33 Blood Pressure 142/106 H 06/01/24 16:33 Blood Pressure Position Sitting 06/01/24 16:33 Pulse Oximetry 93 06/01/24 16:33 Pain Level 8 06/01/24 16:33 Medical Decision Making This dictation utilizes [id number] dictation software and may contain unedited grammatical errors. 54 year-old male presents to ED today by POV with a friend with a chief complaint of acute alcohol intoxication- patient states he has been on a 5-day fernandez, having a 750mL of Maker[employer] Garrick today. Patient endorses being sober for 7-8 months of the past year, but has had long-term problems with alcohol, states it is a roller coaster. Patient has had admissions for detox before but denies known severe ETOH withdrawal symptoms or known withdrawal seizures. Quality described as just having a bad problem with alcohol, no radiation to vomiting, endorses no good intake of hydration or nutrition in the past day or two besides alcohol. Severity is described as severe. Palliating factors include nothing specific attempted, doesn't currently have a [employer] or anyone. Provoking factors include nothing specific- states his Father in December. Events leading up to the incident/Associated Symptoms: Patient is employed, states he feels safe at home, lives independently. Patients' medical history: Labile hypertension, anxiety, GERD, alcoholism, hyperlipidemia. Family and social history: excessive ETOH intake today, denies other illicit substance use. Pertinent exam findings / vital signs include mild tongue fasciculations, lungs CTA, mildly tachycardic in triage, benign abdomen no right upper quadrant tenderness. Differential / pathologies of concern include acute alcohol intoxication, impending alcohol withdrawal. Diagnostic studies of: -CBC, BMP, liver panel, lipase, magnesium, UDS, urinalysis, alcohol level, PT/INR, CIWA q2hr. EKG. Added urine/serum osm's, random urine sodim & creatinine -ETOH level 334, initial CIWA 3 -CBC shows hemoconcentration -BMP shows hypernatremia of 150- calculated free water deficit of 3.9L > pushing PO fluids -LFTs show ALT>AST mild elev -Ammonia neg -Lipase WNL -UA shows proteinuria and ketonuria, likely poor PO intake over days -UDS shows + benzos, patient Rx'd alprazolam -PT/INR WNL -Magnesium WNL Using urine Cr/Na - FeNA 0.5%, pre-renal -EKG shows sinus tachycardia 104 bpm, MS interval 167, normal QTc, left axis deviation, no ST elevations or depressions, no new bundle branch block Interventions of: -IV Banana Bag, Ativan PRN, Consult [employer]. -Consult Dr. Stiles for admission for hypernatremia and alcohol detox ED Course/Assessment/Plan: 54-year-old male presents on a multiday binge of heavy alcohol use, he has presented for this in the past including an admission last month for this. He reports that he has had intermittent sobriety this year and wants to get off of alcohol, he has been manage prior by Dr. Estevez in an outpatient setting with alprazolam. His alcohol level at arrival is 334 with a CIWA of 3 he is likely to withdrawal. He has not had severe withdrawal or alcoholic seizure and did not require phenobarbital last admission, his blood is very hemoconcentrated and his sodium is 150. Patient reports severe adverse reactions to phenobarbital, has done fine with lorazepam in the past, no seizures. Dr. Stiles admits to M/S at 1925. Findings not consistent with severe active withdrawal, SIADH or [id number] cause of hypernatremia. Disposition of Alcohol Use Disorder, Hypernatremia. Patient verbalized understanding of the plan and return to ED criteria and engaged in shared decision making. Medical Records Medical records reviewed: Yes I reviewed the patient's medical records. Lab Data Lab results reviewed: Yes I reviewed the patient's lab results. Labs: Laboratory Tests Range/Units 06/01/24 06/01/24 06/01/24 16:45 17:47 18:04 WBC (4.4-10.8) 10^3/uL 4.66 RBC (4.36-5.78) 10^6/uL 5.86 H Hgb (13.5-17.5) g/dL 18.6 H Hct (40.0-50.0) % 53.6 H MCV (80-95) fL 92 MCH (27.0-33.0) pg 31.7 MCHC (32.0-36.0) % 34.7 RDW (11.8-14.1) % 12.2 Plt Count (130-400) 10^3/uL 189 MPV (8.0-11.0) fL 10.1 Immature Gran % % 0.6 Neutrophils % % 50.9 Lymphocytes % % 36.3 Monocytes % % 10.5 Eosinophils % % 0.6 Basophils % % 1.1 Nucleated RBC % (0.0-0.3) % 0.0 Absolute Neutrophils (1.2-6.7) 10^3/uL 2.37 Absolute Lymphocytes (1.2-3.4) 10^3/uL 1.69 Absolute Monocytes (0.1-0.8) 10^3/uL 0.49 Absolute Eosinophils (0.0-0.7) 10^3/uL 0.03 Absolute Basophils (0.0-0.2) 10^3/uL 0.05 PT (9.1-11.1) sec 9.7 INR (0.9-1.1) 1.0 Sodium (136-145) mmol/L 150 H Potassium (3.5-5.1) mmol/L 3.8 Chloride (98-107) mmol/L 108 H Carbon Dioxide (21.0-32.0) mmol/L 29.9 Anion Gap (3-11) mmol/L 12.1 H BUN (7-18) mg/dL 16 Creatinine (0.70-1.30) mg/dL 1.0 Est GFR (CKD-EPI 2020) (mL/min/1.73m2) 88.88 Glucose (74-106) mg/dL 110 H Calcium (8.5-10.1) mg/dL 9.1 Magnesium (1.8-2.4) mg/dL 2.3 Total Bilirubin (0.2-1.0) mg/dL 0.64 Conjugated Bilirubin (0.0-0.2) mg/dL 0.2 AST (15-37) U/L 56 H ALT (16-63) U/L 78 H Alkaline Phosphatase (46-116) U/L 75 Ammonia (11-32) umol/L 31 Total Protein (6.4-8.2) g/dL 8.2 Albumin (3.4-5.0) g/dL 4.3 Lipase (16-77) U/L 73 Urine Color (Yellow) Yellow Urine Clarity (Clear) Clear Urine pH (5-8) 5.5 Ur Specific [place] (1.005-1.025) 1.025 Urine Protein (Neg-Trace) mg/dL 100 H Urine Ketones (Negative) mg/dL Negative Urine Blood (Negative) Trace-intact H Urine Nitrite (Negative) Negative Urine Bilirubin (Negative) Negative Urine Urobilinogen (Up to 0.2) mg/dL 0.2 Ur Leukocyte Esterase (Negative) Negative Urine RBC (0-2) HPF 0-2 Urine WBC (0-5) HPF Negative Ur Epithelial Cells (Negative) HPF Negative Urine Crystals (Negative) HPF Negative Urine Bacteria (Negative) HPF Rare Urine Casts (Negative) LPF Negative Urine Mucus (Negative) Negative Ur Culture Indicated? No Ur Random Creatinine mg/dL 117.45 Ur Random Sodium mmol/L 90 Urine Glucose (Negative) mg/dL Negative Urine Opiates Screen (Negative) Negative Urine Methadone Screen (Negative) Negative Ur Barbiturates Screen (Negative) Negative Ur Tricyclics Screen (Negative) Negative Ur Amphetamines Screen (Negative) Negative U Benzodiazepines Scrn (Negative) Positive A Urine Cocaine Screen (Negative) Negative Ur THC Screen (Negative) Negative Ethyl Alcohol (<10) mg/dL 334.3 H Quality:SDOH Health Related Social Needs: No Data to Display PFSH All Active Problems (Updated 06/01/24 @ 18:41 by ERIC Valdez) Alcohol use disorder (Acute) Hypernatremia (Acute) Acute alcoholic hepatitis (Acute) Discharge planning issues (Acute) Alcohol withdrawal (Acute) Anxiety (Chronic) Alcohol dependence (Acute) Sexual dysfunction (Acute) Excessive gas (Acute) Pudendal neuralgia (Acute) White coat syndrome without diagnosis of hypertension (Acute) Pelvic pain (Acute) Cervicalgia (Acute) Chronic rhinitis (Acute 12/21/91) Allergy Dr Meza 06/2012: singethelir zyrtec Overweight (Acute 09/21/08) Solar keratosis (Acute 12/04/14) Medical History Anxiety Alcoholism Gastroesophageal reflux disease (02/24/13) pantoprazole responsive (control and recovery special tactics); freddy resp sx Hyperlipidemia (01/05/12) calc. risk 5% (12/2011); goal LDL<130 Surgical History No pertinent past surgical history Family History Mother Age: 81 ETOH abuse Father Age: 85 Diabetes Myocardial infarction Heart disease Hypertension Other Hyperlipidemia Social History (Updated 04/25/24 @ 02:56 by Gerard Cruz Smoking/Tobacco Use Status: Never Smoking risk assessment performed?: Yes Alcohol Intake: current Alcohol Intake frequency: 3 or more drinks per day Alcohol type: hard liquor Counseling provided: other Details: 10/09/21 no alcohol x 30 days Drug use: Never Substance use type: does not use Caregiver/Support person: No Household members: spouse and children Housing: house Number of Children: 3 Communication Needs: Corrective 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 Pets and animals: Yes Pets and animals: cat(s) Sexually active: Yes Do you think of yourself as: straight/heterosexual Current gender identity: male What is your relationship status?: How often do you talk on the phone with friends or family?: three or more times per week How often do you get together with friends or relatives?: three or more times per week How often do you attend caodaism or buddhism services?: decline to answer Do you belong to any clubs or organized social groups?: yes Panel score (0-1 are the most socially isolated patients): 3 What type of physical activity do you participate in: bicycling, weight lifting and running Duration: 60-90 minutes/day Frequency: daily Kala/Gnosticist: None Special kala needs: No Seatbelt use: sometimes Helmet use: Yes Drive intox or ride w/intox lyft 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 Additional Social history: Lives in [place], getting divorce from of 31 year. Grown children. 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 [facility] Have you Been Recently Intoxicated or Drunk Within the Last 30 days?: Yes Have you Ever Experienced Previous Episodes of Alcohol Withdrawal?: Yes Have you ever Experienced Withdrawal Seizures?: No Have you ever Experienced Delirium Tremens(DT)s?: No Have you ever undergone Alcohol Rehabilitation Treatment (i.e, inpt ot outpatient treatment programs)?: Unable to Obtain Have you ever Experienced Blackouts?: Yes Have you ever Combined Alcohol with other Downers within the last 90 days?: No Have you ever Combined Alcohol with any other Substance of Abuse during the last 90 days?: No Positive Blood Alcohol level on Presentation? [PCS.BAL]: Unable to Obtain Evidence of Increased Autonomic Activity (i.e. HR>120, tremor, sweating, agitation, nausea)?: Yes Result: 4
[2024-06-01 17:27] LABS: Bilirubin Negative (Negative); Blood Trace-intact (Negative); Clarity Clear (Clear); Glucose Negative (Negative); Ketones Negative (Negative); Leukocyte Esterase Negative (Negative); Nitrite Negative (Negative); Specific Gravity 1.025 (1.005-1.025); Urobilinogen 0.2 mg/dL (Up to 0.2); pH 5.5 (5-8)
[2024-06-01 17:31] LABS: Bacteria Rare HPF (Negative); C & S Indicated? No; Casts Negative LPF (Negative); Crystals Negative HPF (Negative); Epithelial Cells Negative HPF (Negative); Mucus Negative (Negative); RBC 0-2 HPF (0-2); WBC Negative HPF (0-5)
[2024-06-01 17:44] LABS: *AMPHETAMINES SCREEN URINE Negative (Negative); *BARBITURATES SCREEN URINE Negative (Negative); *BENZODIAZEPINES SCREEN URINE Positive (Negative); Cannabinoids THC Negative (Negative); Cocaine Screen,Urine Negative (Negative); METHADONE URINE SCREEN Negative (Negative); OPIATES URINE SCREEN Negative (Negative)
[2024-06-01 17:47] LABS: Tricyclic Antidepressants Negative (Negative)
[2024-06-01 17:52] LABS: Abs Immature Grans 0.03 10^3/uL (0.0-0.06); Absolute Basophil Count 0.05 10^3/uL (0.0-0.2); Absolute Eosinophil Count 0.03 10^3/uL (0.0-0.7); Absolute Lymphocyte Count 1.69 10^3/uL (1.2-3.4); Absolute Monocyte Count 0.49 10^3/uL (0.1-0.8); Absolute Neutrophil Count 2.37 10^3/uL (1.2-6.7); Basophils % 1.1 %; Eosinophils % 0.6 %; HCT 53.6 % (40.0-50.0); HGB 18.6 g/dL (13.5-17.5); Immature Grans % 0.6 %; Lymphocytes % 36.3 %; MCH 31.7 pg (27.0-33.0); MCHC 34.7 % (32.0-36.0); MCV 92 fL (80-95); MPV 10.1 fL (8.0-11.0); Monocytes % 10.5 %; Neutrophils % 50.9 %; Platelet Count 189 10^3/uL (130-400); RBC 5.86 10^6/uL (4.36-5.78); RDW 12.2 % (11.8-14.1); RDW-SD 41.1 fL; WBC 4.66 10^3/uL (4.4-10.8)
[2024-06-01] MEDS: MAGNESIUM SULFATE 8.12 MEQ, MULTIVITAMIN 10 ML, THIAMINE 100 MG, FOLIC ACID 1 MG in Nor... 168.867 MG IV (17:59)
[2024-06-01 18:03] LABS: Prothrombin Time 9.7 sec (9.1-11.1)
[2024-06-01 18:14] LABS: ALT 78 U/L (16-63); AST 56 U/L (15-37); Albumin 4.3 g/dL (3.4-5.0); Alkaline Phosphatase 75 U/L (46-116); Anion Gap 12.1 mmol/L (3-11); BUN 16 mg/dL (7-18); Bilirubin, Direct 0.2 mg/dL (0.0-0.2); Bilirubin, Total 0.64 mg/dL (0.2-1.0); CO2 29.9 mmol/L (21.0-32.0); Calcium 9.1 mg/dL (8.5-10.1); Chloride 108 mmol/L (98-107); Estimated GFR 88.88 (mL/min/1.73m2); Glucose 110 mg/dL (74-106); Lipase 73 U/L (16-77); Magnesium 2.3 mg/dL (1.8-2.4); Potassium 3.8 mmol/L (3.5-5.1); Sodium 150 mmol/L (136-145); Total Protein 8.2 g/dL (6.4-8.2)
[2024-06-01 18:15] LABS: ETHANOL BLOOD 334.3 mg/dL (<10)
--- NOTE | 2024-06-01 18:15 | RT.EKG_ITS ---
APPROVED REPORT Exam: Resting ECG Reason for Exam: hypernatremia Patient Location: E HR:104 bpm ECG Measurements Heart Rate 104 AXIS NE 167 P 60 QRSd 79 QRS -26 QT 342 T 45 QTc 451 Conclusion Sinus tachycardia 104 normal axis no stemi
[2024-06-01 18:20] LABS: Ammonia 31 umol/L (11-32)
[2024-06-01 18:47] LABS: Creatinine,Urine 117.45 mg/dL; Sodium, Urine 90 mmol/L
[2024-06-01] MEDS: LORazepam 2 MG/ML VIAL 1 MG IVP (20:08)
--- NOTE | 2024-06-01 20:21 | W.PM.HP.N ---
Date of service: 06/01/24 Time of Service: 20:21 Assessment and Plan Assessment and plan (1) Alcohol withdrawal: Start date: 06/01/24 Status: Acute Assessment and plan: This is a 54-year-old gentleman with chronic alcoholism and strong family history of alcoholism. He is once again drinking heavily over the last several days with a bottle of whiskey daily. He presents with a friend and wanting to be admitted for alcohol withdrawal and has had discussion with outpatient alcohol rehabilitation counselors with plans to reinitiate this therapy. He is doing this for his marriage and his job. Insight is poor and he has not done well with any means of the past. He has had an adverse reaction with a bad trip when given phenobarbital protocol last year and is hesitant to be on the phenobarbital protocol for alcohol withdrawal treatment. He will be initiated on the lower scoring triggered benzodiazepine oral Ativan treatment the patient often self treated with Xanax orally at home when stopping after an alcohol binge. Prognosis is poor for complete cessation of alcohol though these is going to reinitiate outpatient therapy and seems motivated with his social dysfunction. He will continue treatment of his hypertension which is associated with alcohol use but may not be on long-term antihypertensives. He is a full code. Qualifiers: Complication of substance-induced condition: uncomplicated Qualified Code(s): F10.930 - Alcohol use, unspecified with withdrawal, uncomplicated (2) Hypernatremia: Start date: 06/01/24 Status: Acute Assessment and plan: Patient is hypernatremic with recent alcohol binge and probably dehydrated. IV D5 half-normal saline overnight with trending labs. Encourage oral intake. (3) Polycythemia: Start date: 06/01/24 Status: Chronic Assessment and plan: Patient has had problems with thing in the past and this may be associated with dehydration acutely. IV hydration and trend labs. (4) Alcohol use disorder: Status: Chronic Assessment and plan: Poor insight and rationalization of continued use with dysfunction socially in his job and marriage. Hopefully the patient will follow-up with outpatient alcohol rehabilitation. (5) Labile hypertension: Assessment and plan: Initiate low-dose metoprolol to tartrate while hospitalized and consider discharge on his medication until blood pressure stabilizes off alcohol. He does have allergies to VINICIUS inhibitors. (6) Acute alcoholic hepatitis: Status: Chronic Assessment and plan: Patient appears to have chronic LFT elevations though he thinks that he is healthy as a horse when not drinking. Trend labs and advance healthy diet. Follow-up long-term with PCP. (7) Anxiety: Assessment and plan: Patient is chronically on Xanax which will be continued to be evaluated as an outpatient with PCP and should be reevaluated with potential abuse and self treatment. This will be between his PCP and the patient. He is at risk for poor insight. Unfortunately he has had a bad experience with phenobarbital and oral Ativan will be used for alcohol withdrawal during this hospital stay. History of Present Illness History of Present Illness Chief Complaint: Alcohol intoxication with alcohol withdrawal. 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 He did go for 1 year recently without alcohol use and has been having some marital discourse with his drinking daily but not having problems alcohol abuse according to the patient. She also has a family history of alcoholism. Patient has had several admissions for alcohol intoxication and withdrawal and open at home does stop drinking alcohol and self treats with his prescribed 1 mg tablet Xanax with increased dosing for several days then weaning down slowly. He has not medications for 1 tablet daily. He often takes 1/4 to 1/2 tablet daily. He does not see this as misuse of his Xanax and does have chronic anxiety. His insight is poor. He presents after several day binge of whiskey drinking a bottle daily and wants to once again stop drinking. He had a bad experience with phenobarbital treatment last year though he did have phenobarbital in the past after failing benzodiazepine treatment for alcohol withdrawal as an inpatient. He has never had alcohol withdrawal seizures. 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 He thinks that if he stops drinking, he is healthy as a horse. He does have inherited well then could stop working but wishes to continue working on his marriage, wants to continue working at the car dealership concerned about medical insurance but also wanting to remain . His alcohol is interfering with his job and his marriage. He has done well with outpatient therapy in the past. He does not do well with AA meetings. As stated his insight is poor. He does not take other illicit drugs and is hesitant to discuss his outpatient benzodiazepine use but does realize that this is a dependence. He is intoxicated presently and smells strongly of alcohol and is feeling anxious and tremulous. He will be initiated on the lower CIWA scoring of alcohol withdrawal with oral or sublingual Ativan for his alcohol withdrawal. He already has plans for outpatient alcohol rehabilitation. His blood pressure is always high when he drinks but is rocksolid and normal with the patient being healthy as a horse when not drinking. He does have some weight gain but no edema. He denies any abdominal swelling. He has had no bruising. He is a full code. Review of Systems Narrative: 13 point review of systems otherwise unrevealing or stable. [facility] All Active Problems (Updated 06/01/24 @ 20:27 by Jose Stiles) Polycythemia (Chronic) Alcohol use disorder (Chronic) Hypernatremia (Acute) Acute alcoholic hepatitis (Chronic) Discharge planning issues (Acute) Alcohol withdrawal (Acute) Anxiety (Chronic) Alcohol dependence (Acute) Sexual dysfunction (Acute) Excessive gas (Acute) Pudendal neuralgia (Acute) White coat syndrome without diagnosis of hypertension (Acute) Pelvic pain (Acute) Cervicalgia (Acute) Chronic rhinitis (Acute 12/21/91) Allergy Dr Meza 06/2012: chandu [email or web address] Overweight (Acute 09/21/08) Solar keratosis (Acute 12/04/14) Medical History Labile hypertension (02/24/13) high in PM, good in office in AM; 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 risk 5% (12/2011); goal LDL<130 Surgical History No pertinent past surgical history Family History Mother Age: 82 ETOH abuse Father Age: 85 Diabetes Myocardial infarction Heart disease Hypertension Other Hyperlipidemia 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 Pets and animals: Yes Pets and animals: cat(s) Sexually active: Yes Do you think of yourself as: straight/heterosexual Current gender identity: male What is your relationship status?: How often do you talk on the phone with friends or family?: three or more times per week How often do you get together with friends or relatives?: three or more times per week How often do you attend restorationist or jainism services?: decline to answer Do you belong to any clubs or organized social groups?: yes Panel score (0-1 are the most socially isolated patients): 3 What type of physical activity do you participate in: bicycling, weight lifting and running Duration: 60-90 minutes/day Frequency: daily Kala/Denominational: None Special kala needs: No Seatbelt use: sometimes Helmet use: Yes Drive intox or ride w/intox xm1 tank 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 Additional Social history: Lives in [place], getting divorce from of 31 year. Grown children. 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 [facility] Allergies and Home Medications Allergies Allergy/AdvReac Type Severity Reaction Status Date / Time lisinopril AdvReac Intermediate Dry Cough Verified 06/01/24 16:37 Home Medications ?Medication ?Instructions ?Recorded ?Confirmed ?Type naltrexone 50 mg tablet 50 mg PO DAILY #90 tabs 07/12/23 06/01/24 Rx sildenafil 50 mg tablet 50 mg PO DAILY PRN sexual activity 01/24/24 06/01/24 Rx #30 tabs atorvastatin 40 mg tablet 40 mg PO QHS #90 tabs 03/02/24 06/01/24 Rx folic acid 1 mg tablet 1 mg PO QAM #30 tabs 04/25/24 06/01/24 Rx magnesium chloride 64 mg 64 mg PO DAILY #30 tabs 04/25/24 06/01/24 Rx (magnesium chloride) tablet,delayed release (Mag 64) multivitamin (Multiple Vitamins 1 tab PO QAM #0 tabs 04/25/24 06/01/24 Rx tablet) thiamine mononitrate (vit B1) 100 100 mg PO QAM #0 tabs 04/25/24 06/01/24 Rx mg tablet (Vitamin B-1 (mononitrate)) triamcinolone acetonide 0.1 % 1 applic topical TID #0 grams 04/25/24 06/01/24 Rx topical ointment alprazolam 1 mg tablet 1 mg PO QHS PRN sleep #30 tabs 05/12/24 06/01/24 Rx Exam Narrative Exam Narrative: General: Patient appears appropriate for age, flushed over most of his body, fair eye contact during conversation and smelling very strong of alcohol on his breath. His speech is slightly slurred and he wanted a conversation being intoxicated. He is alert and oriented to person, place and time. He is in no acute distress but feeling increasingly anxious and tremulous as we reviewed his history. HEENT: Normocephalic, eyes with pupils equal and reactive light symmetrically, extraocular movement intact and sclera anicteric. Oropharynx with dry mucosa and fair dentition. Neck: Supple without JVD. Back: Normal posture without CVA tenderness. Lungs: Clear to auscultation and percussion with no focalizing rales or rhonchi. No expiratory wheeze. Heart: Tachycardic rate with regular rhythm. No murmur or gallop. Abdomen: Obese contour and slightly protuberant, no fluid wave, no focalizing tenderness or guarding. No rebound. No palpable hepatosplenomegaly. Bowel sounds positive all quadrants. Genitalia/rectal: Exam deferred. Skin: Flushed over most of his body, actinic changes over sun exposed areas, otherwise normal color, warm and dry. Extremities: Without clubbing, cyanosis or pitting edema with patient having slight nonpitting edema both lower extremities. Normal pulses all extremities. Neuro: Cranial nerves II to XII grossly intact, no focalizing motor deficits. Diffuse resting tremor. Psych: Flattened affect with normal mood. Fair eye contact. No abnormal thought processes though patient does have some overall denial during conversation. Remote and recent memory intact. Results Labs 06/01/24 17:47 06/01/24 17:47 Labs: Laboratory Results - last 24 hr 06/01/24 06/01/24 06/01/24 16:45 17:47 18:04 WBC 4.66 RBC 5.86 H Hgb 18.6 H Hct 53.6 H MCV 92 MCH 31.7 MCHC 34.7 RDW 12.2 Plt Count 189 MPV 10.1 Immature Gran % 0.6 Neutrophils % 50.9 Lymphocytes % 36.3 Monocytes % 10.5 Eosinophils % 0.6 Basophils % 1.1 Nucleated RBC % 0.0 Absolute Neutrophils 2.37 Absolute Lymphocytes 1.69 Absolute Monocytes 0.49 Absolute Eosinophils 0.03 Absolute Basophils 0.05 PT 9.7 INR 1.0 Sodium 150 H Potassium 3.8 Chloride 108 H Carbon Dioxide 29.9 Anion Gap 12.1 H BUN 16 Creatinine 1.0 Est GFR (CKD-EPI 2020) 88.88 Glucose 110 H Calcium 9.1 Magnesium 2.3 Total Bilirubin 0.64 Conjugated Bilirubin 0.2 AST 56 H ALT 78 H Alkaline Phosphatase 75 Ammonia 31 Total Protein 8.2 Albumin 4.3 Lipase 73 Urine Color Yellow Urine Clarity Clear Urine pH 5.5 Ur Specific [place] 1.025 Urine Protein 100 H Urine Ketones Negative Urine Blood Trace-intact H Urine Nitrite Negative Urine Bilirubin Negative Urine Urobilinogen 0.2 Ur Leukocyte Esterase Negative Urine RBC 0-2 Urine WBC Negative Ur Epithelial Cells Negative Urine Crystals Negative Urine Bacteria Rare Urine Casts Negative Urine Mucus Negative Ur Culture Indicated? No Ur Random Creatinine 117.45 Ur Random Sodium 90 Urine Glucose Negative Urine Opiates Screen Negative Urine Methadone Screen Negative Ur Barbiturates Screen Negative Ur Tricyclics Screen Negative Ur Amphetamines Screen Negative U Benzodiazepines Scrn Positive A Urine Cocaine Screen Negative Ur THC Screen Negative Ethyl Alcohol 334.3 H Last Vital Signs Temp 37.1 C 06/01/24 19:31 Pulse 105 H 06/01/24 19:31 Resp 21 06/01/24 19:31 BP 157/105 H 06/01/24 19:31 Pulse Ox 97 06/01/24 19:29 PAWSS Have you Been Recently Intoxicated or Drunk Within the Last 30 days?: Yes Have you Ever Experienced Previous Episodes of Alcohol Withdrawal?: Yes Have you ever Experienced Withdrawal Seizures?: No Have you ever Experienced Delirium Tremens(DT)s?: No Have you ever undergone Alcohol Rehabilitation Treatment (i.e, inpt ot outpatient treatment programs)?: Unable to Obtain Have you ever Experienced Blackouts?: Yes Have you ever Combined Alcohol with other Downers within the last 90 days?: No Have you ever Combined Alcohol with any other Substance of Abuse during the last 90 days?: No Positive Blood Alcohol level on Presentation? [PCS.BAL]: Unable to Obtain Evidence of Increased Autonomic Activity (i.e. HR>120, tremor, sweating, agitation, nausea)?: Yes Result: 4 Time Spent Time spent with Patient: >75 minutes Time was spent: preparing to see the patient(eg.review tests), obtaining and/or reviewing separately otained hiistory, ordering medications,tests, procedures, indepentently interpreting results, counseling the patient and care coordination
[2024-06-02] VITALS (65 sets, daily range): BP systolic 120–152; BP diastolic 82–108; PULSE 76–116; RESP 4–25; TEMP 37.1; O2SAT 90–96
[2024-06-02] MEDS: Atorvastatin 40 MG TAB PO (00:15)
[2024-06-02] MEDS: Pantoprazole 40 MG VIAL IVP (00:16)
[2024-06-02] MEDS: LORazepam 1 MG TAB PO/SL ×5 (00:16→12:37)
[2024-06-02] MEDS: DEXTROSE 5%-0.45% SALINE 1,000 ML 150 ML IV (00:51)
[2024-06-02 06:34] LABS: HCT 41.7 % (40.0-50.0); HGB 14.5 g/dL (13.5-17.5); MCH 31.9 pg (27.0-33.0); MCHC 34.8 % (32.0-36.0); MCV 92 fL (80-95); MPV 10.4 fL (8.0-11.0); Platelet Count 137 10^3/uL (130-400); RBC 4.55 10^6/uL (4.36-5.78); RDW 12.1 % (11.8-14.1); RDW-SD 40.6 fL; WBC 3.84 10^3/uL (4.4-10.8)
[2024-06-02 06:43] LABS: INR 1.1 (0.9-1.1)
[2024-06-02 06:49] LABS: PHOSPHORUS 3.7 mg/dL (2.6-4.7)
[2024-06-02 06:55] LABS: ALT 55 U/L (16-63); AST 41 U/L (15-37); Albumin 3.4 g/dL (3.4-5.0); Alkaline Phosphatase 59 U/L (46-116); Anion Gap 11.4 mmol/L (3-11); BUN 14 mg/dL (7-18); CO2 26.6 mmol/L (21.0-32.0); CREATININE 0.8 mg/dL (0.70-1.30); Calcium 7.9 mg/dL (8.5-10.1); Chloride 105 mmol/L (98-107); Estimated GFR 104.51 (mL/min/1.73m2); Glucose 116 mg/dL (74-106); Magnesium 1.9 mg/dL (1.8-2.4); Sodium 143 mmol/L (136-145); Total Protein 6.2 g/dL (6.4-8.2)
[2024-06-02] MEDS: Metoprolol 12.5 MG TAB PO ×2 (07:09→12:23)
[2024-06-02] MEDS: Normal Saline Flush 10 ML SYR IVP (08:53)
[2024-06-02] MEDS: Enoxaparin 40 MG/0.4 ML SYR SC (08:54)
[2024-06-02] MEDS: Magnesium Chloride 64 MG TABCR PO (08:55)
[2024-06-02] MEDS: Multivitamin TAB 1 TAB PO (08:55)
[2024-06-02] MEDS: Thiamine 100 MG TAB PO (08:56)
[2024-06-02] MEDS: Folic Acid 1 MG TAB PO (08:56)
--- NOTE | 2024-06-02 09:30 | INITIAL_ITS ---
Date of service: 06/02/24 Time of Service: 09:30 Care Management Initial Assmt Initial Assessment Reason for Hospitalization: Alcohol intoxication, withdrawal Functional Status/Living Situation Patient Presentation: Per RN, Alcides has been pacing around his room, and he has asked about his plan of care, as he is hoping to return home. CM reached out to MD, who stated that he is medically cleared for discharge, and he would discuss this with him prior to discharge. He was discharged home with no services. CM will continue to follow. Town of Residence: [place] Resides with: Child Significant Other/Family: Local Employment Status: Employed ([employer] [place] in [place]) Instrumental Activities of Daily Living (ADLs): Independent Medications Medication Management: No Issues/Barriers identified Advance Directives Advance Directives: Do you have an Advance Directive: N 04/19/19 10:04 AD On File at [facility]: N 03/27/14 10:17 Date Asked 06/01/24 06/01/24 17:11 AD Date Reviewed COLST On File at [facility] No 06/01/24 17:11 COLST Date Scanned Code Status Resuscitation Status Full Code Insurance Coverage/Financial Issues Insurance: BC/ Care Team Visit Care Team Role Provider Type Ross Pugh DO Primary Care Provider OSTEOPATHIC DOCTOR ERIC Valdez Emergency Provider [employer] Jose Stiles Admit Provider NON-[facility] STAFF PHYSICIAN Attending Provider Discharge Potential Discharge Needs: PCP F/U Appt Anticipated Barriers to Discharge: None Identified Patient/Family Education Needs: Review discharge instructions, discuss Ask Me Three Transportation: Private vehicle Plan: Anticipate Ed will return home once medically cleared. He will transport via private vehicle by family. He will follow up with his PCP and discharge plan of care. CM will continue to follow. PFSH All Active Problems (Updated 06/01/24 @ 20:27 by Jose Stiles) Polycythemia (Chronic) Alcohol use disorder (Chronic) Hypernatremia (Acute) Acute alcoholic hepatitis (Chronic) Discharge planning issues (Acute) Alcohol withdrawal (Acute) Anxiety (Chronic) Alcohol dependence (Acute) Sexual dysfunction (Acute) Excessive gas (Acute) Pudendal neuralgia (Acute) White coat syndrome without diagnosis of hypertension (Acute) Pelvic pain (Acute) Cervicalgia (Acute) Chronic rhinitis (Acute 12/21/91) Allergy Dr Meza 06/2012: chandu argueta Overweight (Acute 09/21/08) Solar keratosis (Acute 12/04/14) Medical History Labile hypertension (02/24/13) high in PM, good in office in AM; 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 risk 5% (12/2011); goal LDL<130 Surgical History No pertinent past surgical history Family History Mother Age: 82 ETOH abuse Father Age: 85 Diabetes Myocardial infarction Heart disease Hypertension Other Hyperlipidemia 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 Pets and animals: Yes Pets and animals: cat(s) Sexually active: Yes Do you think of yourself as: straight/heterosexual Current gender identity: male What is your relationship status?: How often do you talk on the phone with friends or family?: three or more times per week How often do you get together with friends or relatives?: three or more times per week How often do you attend mormon or judaism services?: decline to answer Do you belong to any clubs or organized social groups?: yes Panel score (0-1 are the most socially isolated patients): 3 What type of physical activity do you participate in: bicycling, weight lifting and running Duration: 60-90 minutes/day Frequency: daily Kala/Voodoo: None Special kala needs: No Seatbelt use: sometimes Helmet use: Yes Drive intox or ride w/intox escort car 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 Additional Social history: Lives in [place], getting divorce from of 31 year. Grown children. 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
[2024-06-02] MEDS: Potassium Chloride 20 MEQ TABCR 40 MEQ PO (12:23)
--- NOTE | 2024-06-02 13:59 | HPE_ITS ---
PFSH All Active Problems (Updated 06/01/24 @ 20:27 by Jose Stiles) Polycythemia (Chronic) Alcohol use disorder (Chronic) Hypernatremia (Acute) Acute alcoholic hepatitis (Chronic) Discharge planning issues (Acute) Alcohol withdrawal (Acute) Anxiety (Chronic) Alcohol dependence (Acute) Sexual dysfunction (Acute) Excessive gas (Acute) Pudendal neuralgia (Acute) White coat syndrome without diagnosis of hypertension (Acute) Pelvic pain (Acute) Cervicalgia (Acute) Chronic rhinitis (Acute 12/21/91) Allergy Dr Meza 06/2012: chandu argueta Overweight (Acute 09/21/08) Solar keratosis (Acute 12/04/14) Medical History Labile hypertension (02/24/13) high in PM, good in office in AM; elevated at stock cutter's Anxiety Gastroesophageal reflux disease (02/24/13) pantoprazole responsive (stock cutter); freddy resp sx Alcoholism Hyperlipidemia (01/05/12) calc. risk 5% (12/2011); goal LDL<130 Surgical History No pertinent past surgical history Family History Mother Age: 82 ETOH abuse Father Age: 85 Diabetes Myocardial infarction Heart disease Hypertension Other Hyperlipidemia 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 Pets and animals: Yes Pets and animals: cat(s) Sexually active: Yes Do you think of yourself as: straight/heterosexual Current gender identity: male What is your relationship status?: How often do you talk on the phone with friends or family?: three or more times per week How often do you get together with friends or relatives?: three or more times per week How often do you attend uatsdin or uatsdin services?: decline to answer Do you belong to any clubs or organized social groups?: yes Panel score (0-1 are the most socially isolated patients): 3 What type of physical activity do you participate in: bicycling, weight lifting and running Duration: 60-90 minutes/day Frequency: daily Kala/Confucianist: None Special kala needs: No Seatbelt use: sometimes Helmet use: Yes Drive intox or ride w/intox local company 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 Grown children. 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 [facility] Allergies and Home Medications Allergies Allergy/AdvReac Type Severity Reaction Status Date / Time lisinopril AdvReac Intermediate Dry Cough Verified 06/01/24 16:37 Home Medications ?Medication ?Instructions ?Recorded ?Confirmed ?Type atorvastatin 40 mg tablet 40 mg PO QHS #90 tabs 03/02/24 06/01/24 Rx folic acid 1 mg tablet 1 mg PO QAM #30 tabs 04/25/24 06/01/24 Rx magnesium chloride 64 mg 64 mg PO DAILY #30 tabs 04/25/24 06/01/24 Rx (magnesium chloride) tablet,delayed release (Mag 64) multivitamin (Multiple Vitamins 1 tab PO QAM #0 tabs 04/25/24 06/01/24 Rx tablet) alprazolam 1 mg tablet (Xanax) 1 mg PO DAILY #14 tabs 06/02/24 Rx Results Labs 06/02/24 05:35 06/02/24 05:35 Labs: Laboratory Results - last 24 hr 06/01/24 06/01/24 06/01/24 16:45 17:47 18:04 WBC 4.66 RBC 5.86 H Hgb 18.6 H Hct 53.6 H MCV 92 MCH 31.7 MCHC 34.7 RDW 12.2 Plt Count 189 MPV 10.1 Immature Gran % 0.6 Neutrophils % 50.9 Lymphocytes % 36.3 Monocytes % 10.5 Eosinophils % 0.6 Basophils % 1.1 Nucleated RBC % 0.0 Absolute Neutrophils 2.37 Absolute Lymphocytes 1.69 Absolute Monocytes 0.49 Absolute Eosinophils 0.03 Absolute Basophils 0.05 PT 9.7 INR 1.0 Sodium 150 H Potassium 3.8 Chloride 108 H Carbon Dioxide 29.9 Anion Gap 12.1 H BUN 16 Creatinine 1.0 Est GFR (CKD-EPI 2020) 88.88 Glucose 110 H Calcium 9.1 Phosphorus Magnesium 2.3 Total Bilirubin 0.64 Conjugated Bilirubin 0.2 AST 56 H ALT 78 H Alkaline Phosphatase 75 Ammonia 31 Total Protein 8.2 Albumin 4.3 Lipase 73 Urine Color Yellow Urine Clarity Clear Urine pH 5.5 Ur Specific [place] 1.025 Urine Protein 100 H Urine Ketones Negative Urine Blood Trace-intact H Urine Nitrite Negative Urine Bilirubin Negative Urine Urobilinogen 0.2 Ur Leukocyte Esterase Negative Urine RBC 0-2 Urine WBC Negative Ur Epithelial Cells Negative Urine Crystals Negative Urine Bacteria Rare Urine Casts Negative Urine Mucus Negative Ur Culture Indicated? No Ur Random Creatinine 117.45 Ur Random Sodium 90 Urine Glucose Negative Urine Opiates Screen Negative Urine Methadone Screen Negative Ur Barbiturates Screen Negative Ur Tricyclics Screen Negative Ur Amphetamines Screen Negative U Benzodiazepines Scrn Positive A Urine Cocaine Screen Negative Ur THC Screen Negative Ethyl Alcohol 334.3 H 06/02/24 05:35 WBC 3.84 L RBC 4.55 Hgb 14.5 D Hct 41.7 MCV 92 MCH 31.9 MCHC 34.8 RDW 12.1 Plt Count 137 MPV 10.4 Immature Gran % Neutrophils % Lymphocytes % Monocytes % Eosinophils % Basophils % Nucleated RBC % Absolute Neutrophils Absolute Lymphocytes Absolute Monocytes Absolute Eosinophils Absolute Basophils PT 11.0 INR 1.1 Sodium 143 Potassium 3.0 L Chloride 105 Carbon Dioxide 26.6 Anion Gap 11.4 H BUN 14 Creatinine 0.8 Est GFR (CKD-EPI 2020) 104.51 Glucose 116 H Calcium 7.9 L Phosphorus 3.7 Magnesium 1.9 Total Bilirubin 0.80 Conjugated Bilirubin AST 41 H ALT 55 Alkaline Phosphatase 59 Ammonia Total Protein 6.2 L Albumin 3.4 Lipase Urine Color Urine Clarity Urine pH Ur Specific [place] Urine Protein Urine Ketones Urine Blood Urine Nitrite Urine Bilirubin Urine Urobilinogen Ur Leukocyte Esterase Urine RBC Urine WBC Ur Epithelial Cells Urine Crystals Urine Bacteria Urine Casts Urine Mucus Ur Culture Indicated? Ur Random Creatinine Ur Random Sodium Urine Glucose Urine Opiates Screen Urine Methadone Screen Ur Barbiturates Screen Ur Tricyclics Screen Ur Amphetamines Screen U Benzodiazepines Scrn Urine Cocaine Screen Ur THC Screen Ethyl Alcohol Last Vital Signs Temp 98.8 F 06/02/24 12:00 Pulse 86 06/02/24 12:00 Resp 14 06/02/24 12:00 BP 152/97 H 06/02/24 12:00 Pulse Ox 94 06/02/24 07:30 PAWSS Have you Been Recently Intoxicated or Drunk Within the Last 30 days?: Yes Have you Ever Experienced Previous Episodes of Alcohol Withdrawal?: Yes Have you ever Experienced Withdrawal Seizures?: No Have you ever Experienced Delirium Tremens(DT)s?: No Have you ever undergone Alcohol Rehabilitation Treatment (i.e, inpt ot outpatient treatment programs)?: Unable to Obtain Have you ever Experienced Blackouts?: Yes Have you ever Combined Alcohol with other Downers within the last 90 days?: No Have you ever Combined Alcohol with any other Substance of Abuse during the last 90 days?: No Positive Blood Alcohol level on Presentation? [PCS.BAL]: Yes Evidence of Increased Autonomic Activity (i.e. HR>120, tremor, sweating, agitation, nausea)?: Yes Result: 5
--- NOTE | 2024-06-02 15:02 | PDOC.CMDIS ---
Date of service: 06/02/24 Time of Service: 15:02 LACE Index Scoring Tool Questions: Length of Stay (in days): 1 Was the patient admitted via the E.D.?: Yes Comorbidities: Liver or Renal Disease E.D. Visits: 1 Answers: Total Score: 10 Risk of Readmission: High Risk Care Management Discharge Plan Reason for Hospitalization: alcohol withdrawal Discharge Plan: Ed returned home today with no new services. His drove him home via private vehicle. He will follow up with his PCP and discharge plan of care. He is happy to be going home. Patient/Family Education Needs: Review discharge instructions and limitations, discussion of self care needs including ask me three. SDIA Health Related Social Needs: No Data to Display
--- NOTE | 2024-06-02 15:12 | DSE_ITS ---
Date of service: 06/02/24 Time of Service: 15:13 DS: Diagnosis Discharge Diagnosis (1) Alcohol withdrawal: Status: Acute (2) Hypernatremia: Status: Acute (3) Polycythemia: Status: Chronic (4) Alcohol use disorder: Status: Chronic (5) Labile hypertension: (6) Acute alcoholic hepatitis: Status: Chronic (7) Anxiety: Discharge Plan Disposition Patient Disposition: Home Condition: Good Discharge Details Reason For Visit: Alcohol intoxication with alcohol hollie bailey Admit Date/Time: 06/01/24 20:36 Admit Provider: Jose Stiles Attending Provider: Jose Stiles Primary Care Provider: Ross Pugh [facility] Course Hospital Course: Patient initially presented with signs and symptoms consistent with acute alcohol withdrawal. Patient has a significant history of alcohol use and alcohol withdrawal for which she normally manages with a tapering dose of Xanax at home. However, he was unable to find his Xanax at home so he presented to the emergency department. He did not feel comfortable utilizing the phenobarbital protocol as he is had adverse reactions including significant hallucinations during previous hospitalization. While hospitalized he was on 2 mg of Ativan every 4 hours which he did not need very frequently. Patient's symptoms were mostly resolved on the afternoon of 06/02/2024, therefore was determined that he was stable for discharge. He will be sent home with a prescription of Xanax which he will use his usual tapering dose of 1 to 2 mg today, 1 to 2 mg tomorrow, and will begin to decrease to 2 half to 1 mg on subsequent days for an additional 2 to 3 days. Home Meds and New Rx's Prescriptions: New alprazolam [Xanax] 1 mg tablet 1 mg PO DAILY Qty: 14 0RF Rx Instructions: To be used a shakira for EtOH withdrawal; 2mg PM 06/02, 1-2mg 06/03, 0.5-1mg after that Continued atorvastatin 40 mg tablet 40 mg PO QHS Qty: 90 3RF multivitamin [Multiple Vitamins] Tablet 1 tab PO QAM Qty: 0 0RF magnesium chloride [Mag 64] 64 mg Tablet,Delayed Release (Dr/Ec) 64 mg PO DAILY Qty: 30 0RF folic acid 1 mg Tablet 1 mg PO QAM Qty: 30 0RF Discontinued naltrexone 50 mg tablet 50 mg PO DAILY Qty: 90 1RF sildenafil 50 mg tablet 50 mg PO DAILY PRN (Reason: sexual activity) Qty: 30 3RF Rx Instructions: administer 30 minutes to 4 hours before activity alprazolam 1 mg tablet 1 mg PO QHS PRN (Reason: sleep) Qty: 30 1RF thiamine mononitrate (vit B1) [Vitamin B-1 (mononitrate)] 100 mg Tablet 100 mg PO QAM Qty: 0 0RF triamcinolone acetonide 0.1 % Ointment 1 applic topical TID Qty: 0 0RF Rx Instructions: Apply to areas on face Discharge Instructions Referrals: Ross Pugh DO [Primary Care Provider] - 06/16/24 1:00 pm (follow up post admission for ETOH withdrawal) Activity:: Activity as Tolerated Equipment/Supplies:: No Equipment Needed Diet:: As Tolerated Discharge Orders Discharge Orders: Discharge Order (Routine); Ordered 06/02/24 Ordered By: Stan Barnes Discharge Data Discharge Date/Time-TO BE ENTERED AT DEPARTURE: 06/02/24 14:16 DS: Summary Time Spent with Patient providing and/or coordinating discharge services: Greater than 30 minutes Status at Discharge Functional status at discharge: independent ambulation Overall status at discharge: patient is back to baseline Mental Status: mental status grossly normal Speech and Movement: speech and movement normal Mood: congruent mood Affect: normal affect Quality:SDOH Health Related Social Needs: No Data to Display Exam Narrative Exam Narrative: Well-appearing gentleman sitting up on the edge of the bed no acute distress, ANO x 4, heart regular rhythm, lungs clear to auscultation bilaterally, abdomen soft, nontender, nondistended Psych Mental Status: mental status grossly normal Speech and Movement: speech and movement normal Mood: congruent mood Affect: normal affect DS: Data Vitals/I&O Vitals and I&O: Vital Signs Temperature 98.8 F 06/02/24 12:00 Temperature Source Temporal Artery Scan 06/01/24 22:00 Pulse 86 06/02/24 12:00 Pulse 87 06/02/24 12:00 Respiratory Rate 14 06/02/24 12:00 Respiratory Effort Normal 06/01/24 22:00 Respiratory Depth Normal 06/01/24 22:00 Respiratory Pattern Normal 06/01/24 22:00 Blood Pressure 152/97 H 06/02/24 12:00 Blood Pressure Mean 113 06/02/24 12:00 Blood Pressure Position Sitting 06/01/24 16:33 Pulse Oximetry 94 06/02/24 07:30 Oxygen Delivery Method Room Air 06/01/24 22:00 Oxygen Flow Rate 0 06/01/24 22:00 Pain Level 0 06/02/24 14:18 Intake & Output 06/01/24 06/02/24 06/02/24 17:59 05:59 17:59 Intake Total 3432.2 / 3432.2 600 / 600 Output Total 150 / 150 Balance 3282.2 / 3282.2 600 / 600 Weight 200 lb 200 lb Intake: IV 1013.2 / 1013.2 Oral 2419 / 2419 600 / 600 Output: Urine 150 / 150 Other: Urine Color Light Gail Urine Appearance Clear Urine Odor Strong Comment unknown amount pt used toilet Stool Size Large Stool Characteristics Soft Formed Brown Voiding Methods Toilet Toilet Bedside Commode Data Completed and Pending Labs on day of discharge: Labs from last 24 hours 06/02/24 06/01/24 06/01/24 05:35 18:04 17:47 WBC 3.84 L 4.66 RBC 4.55 5.86 H Hgb 14.5 D 18.6 H Hct 41.7 53.6 H MCV 92 92 MCH 31.9 31.7 MCHC 34.8 34.7 RDW 12.1 12.2 Plt Count 137 189 MPV 10.4 10.1 Immature Gran % 0.6 Neutrophils % 50.9 Lymphocytes % 36.3 Monocytes % 10.5 Eosinophils % 0.6 Basophils % 1.1 Nucleated RBC % 0.0 Absolute Neutrophils 2.37 Absolute Lymphocytes 1.69 Absolute Monocytes 0.49 Absolute Eosinophils 0.03 Absolute Basophils 0.05 PT 11.0 9.7 INR 1.1 1.0 Sodium 143 150 H Potassium 3.0 L 3.8 Chloride 105 108 H Carbon Dioxide 26.6 29.9 Anion Gap 11.4 H 12.1 H BUN 14 16 Creatinine 0.8 1.0 Est GFR (CKD-EPI 2020) 104.51 88.88 Glucose 116 H 110 H Serum Osmolality Pending Calcium 7.9 L 9.1 Phosphorus 3.7 Magnesium 1.9 2.3 Total Bilirubin 0.80 0.64 Conjugated Bilirubin 0.2 AST 41 H 56 H ALT 55 78 H Alkaline Phosphatase 59 75 Ammonia 31 Total Protein 6.2 L 8.2 Albumin 3.4 4.3 Lipase 73 Urine Color Urine Clarity Urine pH Ur Specific [place] Urine Protein Urine Ketones Urine Blood Urine Nitrite Urine Bilirubin Urine Urobilinogen Ur Leukocyte Esterase Urine RBC Urine WBC Ur Epithelial Cells Urine Crystals Urine Bacteria Urine Casts Urine Mucus Ur Culture Indicated? Urine Osmolality Ur Random Creatinine Ur Random Sodium Urine Glucose Urine Opiates Screen Urine Methadone Screen Ur Barbiturates Screen Ur Tricyclics Screen Ur Amphetamines Screen U Benzodiazepines Scrn Urine Cocaine Screen Ur THC Screen Ethyl Alcohol 334.3 H 06/01/24 16:45 WBC RBC Hgb Hct MCV MCH MCHC RDW Plt Count MPV Immature Gran % Neutrophils % Lymphocytes % Monocytes % Eosinophils % Basophils % Nucleated RBC % Absolute Neutrophils Absolute Lymphocytes Absolute Monocytes Absolute Eosinophils Absolute Basophils PT INR Sodium Potassium Chloride Carbon Dioxide Anion Gap BUN Creatinine Est GFR (CKD-EPI 2020) Glucose Serum Osmolality Calcium Phosphorus Magnesium Total Bilirubin Conjugated Bilirubin AST ALT Alkaline Phosphatase Ammonia Total Protein Albumin Lipase Urine Color Yellow Urine Clarity Clear Urine pH 5.5 Ur Specific [place] 1.025 Urine Protein 100 H Urine Ketones Negative Urine Blood Trace-intact H Urine Nitrite Negative Urine Bilirubin Negative Urine Urobilinogen 0.2 Ur Leukocyte Esterase Negative Urine RBC 0-2 Urine WBC Negative Ur Epithelial Cells Negative Urine Crystals Negative Urine Bacteria Rare Urine Casts Negative Urine Mucus Negative Ur Culture Indicated? No Urine Osmolality Pending Ur Random Creatinine 117.45 Ur Random Sodium 90 Urine Glucose Negative Urine Opiates Screen Negative Urine Methadone Screen Negative Ur Barbiturates Screen Negative Ur Tricyclics Screen Negative Ur Amphetamines Screen Negative U Benzodiazepines Scrn Positive A Urine Cocaine Screen Negative Ur THC Screen Negative Ethyl Alcohol PFSH All Active Problems (Updated 06/01/24 @ 20:27 by Jose Stiles) Polycythemia (Chronic) Alcohol use disorder (Chronic) Hypernatremia (Acute) Acute alcoholic hepatitis (Chronic) Discharge planning issues (Acute) Alcohol withdrawal (Acute) Anxiety (Chronic) Alcohol dependence (Acute) Sexual dysfunction (Acute) Excessive gas (Acute) Pudendal neuralgia (Acute) White coat syndrome without diagnosis of hypertension (Acute) Pelvic pain (Acute) Cervicalgia (Acute) Chronic rhinitis (Acute 12/21/91) Allergy Dr Meza 06/2012: [email or web address] zyrtec Overweight (Acute 09/21/08) Solar keratosis (Acute 12/04/14) Medical History Labile hypertension (02/24/13) high in PM, good in office in AM; elevated at electric track switch maintainer's Anxiety Gastroesophageal reflux disease (02/24/13) pantoprazole responsive (electric track switch maintainer); freddy resp sx Alcoholism Hyperlipidemia (01/05/12) calc. risk 5% (12/2011); goal LDL<130 Surgical History No pertinent past surgical history Family History Mother Age: 82 ETOH abuse Father Age: 85 Diabetes Myocardial infarction Heart disease Hypertension Other Hyperlipidemia 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 Pets and animals: Yes Pets and animals: cat(s) Sexually active: Yes Do you think of yourself as: straight/heterosexual Current gender identity: male What is your relationship status?: How often do you talk on the phone with friends or family?: three or more times per week How often do you get together with friends or relatives?: three or more times per week How often do you attend advent or scientologist services?: decline to answer Do you belong to any clubs or organized social groups?: yes Panel score (0-1 are the most socially isolated patients): 3 What type of physical activity do you participate in: bicycling, weight lifting and running Duration: 60-90 minutes/day Frequency: daily Kala/Congregational: None Special kala needs: No Seatbelt use: sometimes Helmet use: Yes Drive intox or ride w/intox medical van 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 Grown children. 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
[2024-06-02 18:14] LABS: Osmolality, Urine 631 mOsm/kg (150-1150)
[2024-06-02 18:20] LABS: Osmolality Serum 379 mOsm/kg (275-295)
== END 2024-06-02 14:16 | disposition home or self-care (01) | DRG 897 ==
LOC: ER 20:51 → ICU 21:26
PROVIDERS: Admitting Provider Family Medicine; Emergency Provider Physician Assistant; PCP Family Medicine; Visit Provider Family Medicine
DX: F10.229 Alcohol dependence with intoxication, unspecified (principal); E87.0 Hyperosmolality and hypernatremia; Y90.8 Blood alcohol level of 240 mg/100 ml or more; F10.239 Alcohol dependence with withdrawal, unspecified; D75.1 Secondary polycythemia; K70.10 Alcoholic hepatitis without ascites; F41.9 Anxiety disorder, unspecified; Z81.1 Family history of alcohol abuse and dependence; I10 Essential (primary) hypertension
CPT/HCPCS: 00123; 36415; 80048; 80053; 80076; 80307; 83690; 83935; 85027; 93005; 96365; 96366; 96375; 99285; J1650; 80320; 81003; 81015; 82140; 82565; 83735; 83930; 84100; 84300; 85025; 85610; 93010; 99233; 99239; J2060; J2470; J3411; J3475; J3490

== ENCOUNTER 2024-07-17 14:03 | Inpatient (IN) | payer BC, SELFPAY ==
[2024-07-17] VITALS (94 sets, daily range): BP systolic 102–171; BP diastolic 65–110; PULSE 91–130; RESP 11–34; TEMP 36.6; O2SAT 92–97
--- NOTE | 2024-07-17 14:12 | ED.GENADUL_ITS ---
Discharge Plan Discharge Details Chief Complaint: ETOHWithdr Clinical Impression: Alcohol intoxication in relapsed alcoholic Primary Care Provider: Ross Pugh ED Provider: Marino Argueta [place] Meds and New Rx's Prescriptions: No Action atorvastatin 40 mg tablet 40 mg PO QHS Qty: 90 3RF multivitamin [Multiple Vitamins] Tablet 1 tab PO QAM Qty: 0 0RF magnesium chloride [Mag 64] 64 mg Tablet,Delayed Release (Dr/Ec) 64 mg PO DAILY Qty: 30 0RF folic acid 1 mg Tablet 1 mg PO QAM Qty: 30 0RF HPI General Mode of arrival: wheelchair . Date/Time Provider Initiated Documentation: 07/17/24 14:12 . Limitations to Documentation: altered mental status (Intoxicated) . Information obtained by: patient, RN notes reviewed and old records reviewed . HPI Narrative: Patient brought into ED by a friend with alcohol intoxication/dependence. Patient is clearly intoxicated at this time. Apparently got out of rehab a couple of weeks ago and after a couple days of being sober began drinking heavily once again. He was in rehab for 30 days. He has had problems with alcohol most of his life but has had periods of sobriety. According to his friend who brought him in his father has recently passed. Family and friends have distanced himself from the patient because of his drinking. Patient denies any physical complaints. Denies any thoughts of self-harm. Patient is not clear why he is here but friend reports that after speaking with him this afternoon patient thought that detoxing and rehab again was his only option to get his life back. Related Data Home Medications ?Medication ?Instructions ?Recorded ?Confirmed atorvastatin 40 mg tablet 40 mg PO QHS #90 tabs 03/02/24 07/17/24 folic acid 1 mg tablet 1 mg PO QAM #30 tabs 04/25/24 07/17/24 magnesium chloride 64 mg 64 mg PO DAILY #30 tabs 04/25/24 07/17/24 (magnesium chloride) tablet,delayed release (Mag 64) multivitamin (Multiple Vitamins 1 tab PO QAM #0 tabs 04/25/24 07/17/24 tablet) Previous Rx's ?Medication ?Instructions ?Recorded atorvastatin 40 mg tablet 40 mg PO QHS #90 tabs 03/02/24 folic acid 1 mg tablet 1 mg PO QAM #30 tabs 04/25/24 magnesium chloride 64 mg 64 mg PO DAILY #30 tabs 04/25/24 (magnesium chloride) tablet,delayed release (Mag 64) multivitamin (Multiple Vitamins 1 tab PO QAM #0 tabs 04/25/24 tablet) Allergies Allergy/AdvReac Type Severity Reaction Status Date / Time lisinopril AdvReac Intermediate Dry Cough Verified 07/17/24 14:14 General GREGORY: 3 Review of Systems Unobtainable due to mental status Exam Narrative Exam Narrative: Const: WDWN male in NAD, but clearly intoxicated. VS per triage. HEENT: NC/AT. Normal facial exam. Neck: Supple. Trachea midline. Lungs: Normal respiratory effort. Lungs are clear. Cor: RRR without murmur. Good radial pulses. GI: Soft/ND/NT. Neuro: A+O x 3. Slurred speech, slow mentation. Cranial nerves II - XII grossly intact. No gross motor or sensory deficit. Ext: No C/C/E. Psych: Denies SI. Very restless. Medical Decision Making Patient with a long history of alcoholism though he has had periods of sobriety. Just went through a 30-day rehab and began drinking almost immediately after discharge. Is here with a friend whom he had actually been alienated with for over the last year because of his drinking. Patient is restless and anxious but clearly intoxicated. Has no physical complaints. Denies any thoughts of self- harm. Will place on monitor and begin recording CIWA scores, obtain labs and EKG, give a liter of saline pending lab results. Given his 30 days of rehab with 2 weeks of drinking not overly concerned with vitamin depletion. Would also expect an uncomplicated detox. 15:30 - Patient's labs with normal white count, elevated hemoglobin hematocrit, normal electrolytes. AST and ALT mildly elevated consistent with his alcohol use and baseline compared to prior values. Alcohol level right around 400. EKG with mild sinus tachycardia, borderline left axis, normal ST segments and not significantly changed from previous. Will continue to monitor and score CIWA as he begins to sober up. 17:30 - Per nursing patient's CIWA scores have been below 8. Patient asked to speak with me. Reports he has horrible headache and that he is withdrawing. His fluids are still running as he keeps bending arm. He has ate and is asking for oral fluids. Will give ketorolac and prochlorperazine for his headache. Continue to monitor and score CIWA, treating when appropriate. 22:00 - Patient continues to complain of withdrawal but continued to score below 8 on CIWA. About an hour ago HR, BP and RR went up fairly significantly from baseline. He was given 2mg oral Ativan. Discussed with oncoming ED physician, Dr. Crocker. Will give 50 mg of Librium now at signout. Will watch overnight and consider disposition in the morning. May be feasible to discharge on oral Librium having follow-up with primary care and make arrangements to get back into rehab. Medical Records Medical records reviewed: Yes I reviewed the patient's medical records. Medical records narrative: Outpatient records, inpatient records-does not do well with phenobarbital, much better with benzodiazepine Lab Data Lab results reviewed: Yes I reviewed the patient's lab results. Lab results narrative: See MDM ECG Data Attestation: I personally reviewed and interpreted this ECG (s) as follows: Prior ECG tracings: available for review Interpretation: See EKG/MDM PFSH All Active Problems (Updated 07/17/24 @ 22:10 by Marino Argueta MD) Alcohol intoxication in relapsed alcoholic (Acute) Alcohol dependence (Acute) Sexual dysfunction (Acute) Pudendal neuralgia (Acute) White coat syndrome without diagnosis of hypertension (Acute) Chronic rhinitis (Acute 12/21/91) Allergy Dr Meza 06/2012: chandu argueta Overweight (Acute 09/21/08) Solar keratosis (Acute 12/04/14) Medical History Labile hypertension (02/24/13) high in PM, good in office in AM; 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 risk 5% (12/2011); goal LDL<130 Surgical History No pertinent past surgical history Family History Mother Age: 82 ETOH abuse Father Age: 85 Diabetes Myocardial infarction Heart disease Hypertension Other Hyperlipidemia 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 Pets and animals: Yes Pets and animals: cat(s) Sexually active: Yes Do you think of yourself as: straight/heterosexual Current gender identity: male What is your relationship status?: How often do you talk on the phone with friends or family?: three or more times per week How often do you get together with friends or relatives?: three or more times per week How often do you attend bahai or presybeterian services?: decline to answer Do you belong to any clubs or organized social groups?: yes Panel score (0-1 are the most socially isolated patients): 3 What type of physical activity do you participate in: bicycling, weight lifting and running Duration: 60-90 minutes/day Frequency: daily Kala/Jain: None Special kala needs: No Seatbelt use: sometimes Helmet use: Yes Drive intox 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 Grown children. 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
--- NOTE | 2024-07-17 14:30 | RT.EKG_ITS ---
APPROVED REPORT Exam: Resting ECG Reason for Exam: qt monitoring Patient Location: E HR:104 bpm ECG Measurements Heart Rate 104 AXIS [place] 171 P 53 QRSd 83 QRS -26 QT 351 T 29 QTc 462 Conclusion Sinus tachycardia...rate> 99 Normal Interval Borderline Left [place] No acute ST changes There are no significant changes compared to prior EKG performed on 06/01/2024 at 18:47.
[2024-07-17 14:58] LABS: HCT 50.4 % (40.0-50.0); HGB 17.6 g/dL (13.5-17.5); MCH 31.5 pg (27.0-33.0); MCHC 34.9 % (32.0-36.0); MCV 90 fL (80-95); MPV 9.9 fL (8.0-11.0); Platelet Count 164 10^3/uL (130-400); RBC 5.58 10^6/uL (4.36-5.78); RDW-SD 39.5 fL; WBC 4.88 10^3/uL (4.4-10.8)
[2024-07-17] MEDS: Normal Saline 1,000 ML 1000 ML IV (15:07)
[2024-07-17 15:18] LABS: ALT 82 U/L (16-63); AST 51 U/L (15-37); Albumin 4.3 g/dL (3.4-5.0); Alkaline Phosphatase 75 U/L (46-116); Anion Gap 7.4 mmol/L (3-11); BUN 10 mg/dL (7-18); Bilirubin, Total 0.61 mg/dL (0.2-1.0); CO2 32.6 mmol/L (21.0-32.0); CREATININE 1.1 mg/dL (0.70-1.30); Calcium 8.6 mg/dL (8.5-10.1); Chloride 105 mmol/L (98-107); ETHANOL BLOOD 405.1 mg/dL (<10); Estimated GFR 79.28 (mL/min/1.73m2); Glucose 129 mg/dL (74-106); Magnesium 2.4 mg/dL (1.8-2.4); Potassium 3.8 mmol/L (3.5-5.1); Sodium 145 mmol/L (136-145); Total Protein 7.7 g/dL (6.4-8.2)
[2024-07-17 15:46] LABS: *AMPHETAMINES SCREEN URINE Negative (Negative); *BARBITURATES SCREEN URINE Negative (Negative); *BENZODIAZEPINES SCREEN URINE Negative (Negative); Cannabinoids THC Negative (Negative); Cocaine Screen,Urine Negative (Negative); METHADONE URINE SCREEN Negative (Negative); OPIATES URINE SCREEN Negative (Negative)
[2024-07-17 16:02] LABS: Tricyclic Antidepressants Negative (Negative)
[2024-07-17] MEDS: Ketorolac 15 MG/ML VIAL IVP (17:43)
[2024-07-17] MEDS: Prochlorperazine 10 MG/2 ML VIAL IVP (17:44)
--- NOTE | 2024-07-17 20:17 | NUR.NOTE ---
pt refuses to be on monitor/ participate in vital sign monitoring.
[2024-07-17] MEDS: LORazepam 1 MG TAB 2 MG PO (21:20)
[2024-07-17] MEDS: chlordiazePOXIDE 25 MG CAP 50 MG PO (22:05)
[2024-07-18] VITALS (15 sets, daily range): BP systolic 149–156; BP diastolic 78–106; PULSE 88–111; RESP 16–20; TEMP 36.6–36.8; O2SAT 92–96
[2024-07-18] MEDS: chlordiazePOXIDE 25 MG CAP 50 MG PO ×4 (02:15→12:12)
[2024-07-18] MEDS: diazePAM 5 MG TAB 10 MG PO (03:36)
[2024-07-18] MEDS: LORazepam 2 MG/ML VIAL (06:42)
--- NOTE | 2024-07-18 06:57 | W.EDPROG ---
Date of service: 07/18/24 Time of Service: 06:57 Medical Decision Making Patient was signed out to me by my colleague Dr. Argueta. Please refer to his HPI, physical exam, assessment and plan. On my evaluation of the patient, the patient has made it very clear that his goal was to work through his alcohol detox via outpatient management and not through inpatient management. Additionally he had a significant negative affect and a very bad experience with phenobarbital and the last time he was managed for withdrawal. Throughout the night he was given multiple 50 mg doses of Librium, and he additionally needed breakthrough medication of Ativan and Valium. Most recently he has received Librium and Ativan and is still quite anxious. After a long discussion with the patient, I do feel that the patient's symptoms will not be able to be adequately managed on an outpatient basis at this stage due to his continued symptomatic withdrawal. I did suggest that a short inpatient stay is needed at this point. Patient consents to admission. Will reach out to the hospitalist for admission 7:24 AM Discussed case with hospitalist Dr. Nolen, he agrees with the assessment and plan. I have extensively reviewed the treatment plan with the patient. I have addressed all patient concerns at this time. I have also discussed the plan with the admitting physician and they agree with the current assessment and plan and have agreed to assume responsibility for the patient. All parties demonstrate verbal understanding and agreement with our assessment and plan at this time. The documentation in this chart was dictated using [employer] dictation software. Please excuse any dictation errors. Quality:SDOH Health Related Social Needs: No Data to Display Critical Care Time Critical Care Time Critical Care Time: Yes Total Critical Care Time: 45 Attestation: Upon my evaluation, this patient had a high probability of imminent or life-threatening deterioration, which required my direct attention, intervention, and personal management. I have personally provided 45 minutes of critical care time exclusive of time spent on separately billable procedures. Time includes review of laboratory data, radiology results, discussion with consultants, and monitoring for potential decompensation. Interventions were performed as documented. Discharge Plan Disposition Patient Disposition: Admit to [facility] Discharge Details Chief Complaint: ETOHWithdr Clinical Impression: Alcohol intoxication in relapsed alcoholic, Alcohol withdrawal Primary Care Provider: Ross Pugh ED Provider: Sukumar Crocker Home Meds and New Rx's Prescriptions: No Action atorvastatin 40 mg tablet 40 mg PO QHS Qty: 90 3RF multivitamin [Multiple Vitamins] Tablet 1 tab PO QAM Qty: 0 0RF magnesium chloride [Mag 64] 64 mg Tablet,Delayed Release (Dr/Ec) 64 mg PO DAILY Qty: 30 0RF folic acid 1 mg Tablet 1 mg PO QAM Qty: 30 0RF
--- NOTE | 2024-07-18 09:19 | W.PC.ACHO ---
Registration Status: Primary Language: Preferred Language: ED Information & Data Chief Complaint ETOHWithdr 07/17/24 14:13 Chief Complaint ETOHWithdr 07/17/24 14:08 Triage Note 5th (one bottle) of burbon a 07/17/24 14:08 day since getting out of rehab ([facility]) approx 2 weeks ago. Last drink approx 1 hour ago. Medical / Surgical History (Last Reviewed 07/17/24 @ 14:19 by Marino Argueta MD) Labile hypertension (02/24/13) Anxiety Gastroesophageal reflux disease (02/24/13) Alcoholism Hyperlipidemia (01/05/12) (Last Reviewed 07/17/24 @ 14:19 by Marino Argueta MD) No pertinent past surgical history Most Recent Vital Signs Temperature 36.6 C 07/17/24 14:08 Pulse 88 07/18/24 08:12 Pulse 103 H 07/17/24 21:56 Respiratory Rate 18 07/18/24 08:12 Respiratory Effort Normal 07/17/24 14:13 Respiratory Pattern Normal 07/18/24 08:39 Blood Pressure 152/78 H 07/18/24 08:12 Blood Pressure Mean 109 07/17/24 21:56 Blood Pressure Position Sitting 07/17/24 14:08 Pulse Oximetry 92 07/18/24 08:15 Oxygen Delivery Method Room Air 07/18/24 06:15 Oxygen Flow Rate 0 07/18/24 06:15 Allergies lisinopril Adverse Reaction (Intermediate, Verified 07/17/24 14:14) Dry Cough IV IV Catheter Gauge [Right 18 Antecubital] IV Catheter Gauge [Left 18 Antecubital] Diet Orders Category Date Time Status DIET [Regular/Normal] [DIET] Nutrition 07/18/24 Breakfast Active Diagnostics 07/17/24 07/17/24 Range/Units 14:45 14:05 WBC 4.88 (4.4-10.8) 10^3/uL RBC 5.58 (4.36-5.78) 10^6/uL Hgb 17.6 H (13.5-17.5) g/dL Hct 50.4 H (40.0-50.0) % MCV 90 (80-95) fL MCH 31.5 (27.0-33.0) pg MCHC 34.9 (32.0-36.0) % RDW 12.0 (11.8-14.1) % Plt Count 164 (130-400) 10^3/uL MPV 9.9 (8.0-11.0) fL Sodium 145 (136-145) mmol/L Potassium 3.8 (3.5-5.1) mmol/L Chloride 105 (98-107) mmol/L Carbon Dioxide 32.6 H (21.0-32.0) mmol/L Anion Gap 7.4 (3-11) mmol/L BUN 10 (7-18) mg/dL Creatinine 1.1 (0.70-1.30) mg/dL Est GFR (CKD-EPI 2020) 79.28 (mL/min/1.73m2) Glucose 129 H (74-106) mg/dL Calcium 8.6 (8.5-10.1) mg/dL Magnesium 2.4 (1.8-2.4) mg/dL Total Bilirubin 0.61 (0.2-1.0) mg/dL AST 51 H (15-37) U/L ALT 82 H (16-63) U/L Alkaline Phosphatase 75 (46-116) U/L Total Protein 7.7 (6.4-8.2) g/dL Albumin 4.3 (3.4-5.0) g/dL Urine Opiates Screen Negative (Negative) Urine Methadone Screen Negative (Negative) Ur Barbiturates Screen Negative (Negative) Ur Tricyclics Screen Negative (Negative) Ur Amphetamines Screen Negative (Negative) U Benzodiazepines Scrn Negative (Negative) Urine Cocaine Screen Negative (Negative) Ur THC Screen Negative (Negative) Ethyl Alcohol 405.1 H (<10) mg/dL Intake and Output - 24 Hour Total 07/17/24 14:03 thru 07/17/24 21:56 Intake Total 1000 Balance 1000 Weight 88.451 kg Intake: IV 1000 Falls Risk Assessment History of Falls No History 07/17/24 14:13 Contributing Factors No Factors 07/17/24 14:13 Ambulatory Aids Independent 07/17/24 14:13 Tubes/Lines None 07/17/24 14:13 Gait Evaluation No gait disturbance 07/17/24 14:13 Cognition No cognitive impairment 07/17/24 14:13 Fall Total Score 0 07/17/24 14:13 Level of Risk Standard/Low Risk 07/17/24 14:13 Notes 07/17/24 20:17 Nursing Notes by Shelli Best pt refuses to be on monitor/ participate in vital sign monitoring. Initialized on 07/17/24 20:17 - END OF NOTE v v v v v v v v v Sending and/or Receiving Nurses: Please use comment section below to note any information pertinent to the patient hand-off not included above. Information / Comments: ETOH withdrawal, CIWA 7. Pt has been drinking the last 2 weeks. Report received from: DELBERT Parsons nurse
[2024-07-18] MEDS: Normal Saline Flush 10 ML SYR IVP (10:48)
[2024-07-18] MEDS: Thiamine 100 MG TAB PO (10:49)
[2024-07-18] MEDS: LORazepam 1 MG TAB PO/SL (10:49)
[2024-07-18] MEDS: Multivitamin TAB 1 TAB PO (10:49)
[2024-07-18] MEDS: Folic Acid 1 MG TAB PO (10:49)
--- NOTE | 2024-07-18 12:02 | HPE_ITS ---
Date of service: 07/18/24 Time of Service: 12:02 Assessment and Plan Assessment and plan (1) Alcohol withdrawal: Status: Acute Assessment and plan: Using benzo protolocol given intolerance to phenobarbitol. Using schedule chlordiazepoxide for baseline. With discharge request I am continuing this for 3 days with tapering dose, higher end of dosing spectrum Qualifiers: Complication of substance-induced condition: uncomplicated Qualified Code(s): F10.930 - Alcohol use, unspecified with withdrawal, uncomplicated (2) Alcohol dependence: Status: Acute Assessment and plan: Staring nalrexone here, continue as outpatient f/u with therapist, PCP (3) Alcoholic liver disease: Status: Acute Assessment and plan: No signs cirrhosis, but acute inflammation. follow as outpatient. History of Present Illness History of Present Illness Chief Complaint: alcohol withdrawal Narrative: 54 yo M with alcohol use disorder and two previous admissions this year for alcohol withdrawal presented to the ED with alcohol intoxication requesting assisted withdrawal. He was last discharged 06/02/14 and had been in a 30 day inpatient rehabilitation. He relapsed to heavy drinking (20+ drinks/day) 12 prior to presentation and was brought in to the ED by a friend. The recent of his father was a trigger. He denied other drug use or suicidal ideation. His last drink was 10am on 07/17. His alcohol level on presentation was 405 with a negative UDS. Initial plan was discharge from the ED, but he had severe enough withdrawal symptoms that he agreed to admission after spending the night in the emergency room. He denies any history of seizures or hallucinations with his withdrawal. He has been eating. He has had a poor reaction to phenobarbitol in the past. Review of Systems All systems reviewed & are unremarkable except as noted in HPI and below PFSH All Active Problems (Updated 07/18/24 @ 12:14 by Gerard Frazier) Alcoholic liver disease (Acute) Alcohol withdrawal (Acute) Alcohol intoxication in relapsed alcoholic (Acute) Alcohol dependence (Acute) Sexual dysfunction (Acute) Pudendal neuralgia (Acute) White coat syndrome without diagnosis of hypertension (Acute) Chronic rhinitis (Acute 12/21/91) Allergy Dr Meza 06/2012: chandu zyrtec Overweight (Acute 09/21/08) Solar keratosis (Acute 12/04/14) Medical History Labile hypertension (02/24/13) high in PM, good in office in AM; 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 risk 5% (12/2011); goal LDL<130 Surgical History No pertinent past surgical history Family History Mother Age: 82 ETOH abuse Father Age: 86 Diabetes Myocardial infarction Heart disease Hypertension Other Hyperlipidemia Social History Smoking/Tobacco Use Status: Never Smoking risk assessment performed?: Yes Alcohol Intake: current Alcohol Intake frequency: 3 or more drinks per day Alcohol type: hard liquor Counseling provided: other Details: 10/09/21 no alcohol x 30 days Drug use: Daily Substance use type: does not use Caregiver/Support person: No Household members: spouse and children Housing: house Number of Children: 3 Communication Needs: Corrective 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 Pets and animals: Yes Pets and animals: cat(s) Sexually active: Yes Do you think of yourself as: straight/heterosexual Current gender identity: male What is your relationship status?: How often do you talk on the phone with friends or family?: three or more times per week How often do you get together with friends or relatives?: three or more times per week How often do you attend anabaptism or yarsani services?: decline to answer Do you belong to any clubs or organized social groups?: yes Panel score (0-1 are the most socially isolated patients): 3 What type of physical activity do you participate in: bicycling, weight lifting and running Duration: 60-90 minutes/day Frequency: daily Kala/Judaism: None Special kala needs: No Seatbelt use: sometimes Helmet use: Yes Drive intox 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 Grown children. 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 [place] Med Allergies and Home Medications Allergies Allergy/AdvReac Type Severity Reaction Status Date / Time lisinopril AdvReac Intermediate Dry Cough Verified 07/17/24 14:14 Home Medications ?Medication ?Instructions ?Recorded ?Confirmed ?Type atorvastatin 40 mg tablet 40 mg PO QHS #90 tabs 03/02/24 07/17/24 Rx folic acid 1 mg tablet 1 mg PO QAM #30 tabs 04/25/24 07/17/24 Rx multivitamin (Multiple Vitamins 1 tab PO QAM #0 tabs 04/25/24 07/17/24 Rx tablet) chlordiazepoxide HCl 25 mg capsule See Rx Instructions .Route 07/18/24 Rx .COMPLEX PRN #24 caps naltrexone 50 mg tablet 50 mg PO DAILY #30 tabs 07/18/24 Rx thiamine mononitrate (vit B1) 100 100 mg PO QAM #0 tabs 07/18/24 Rx mg tablet (Vitamin B-1 (mononitrate)) Exam Narrative Exam Narrative: GEN: Alert and oriented x 4, anxious appearing, pacing, but pleasant and cooperative, gives linear history. HEENT: Head atraumatic. Conjunctiva clear, no icterus. PEERL, EOMI. no rhinorrhea. MMM, OP benign. Neck with no masses, trachea midline LUNGS: CTAB with normal effort CV: RRR with no murmurs, gallops, or rubs. ABD: active bowel sounds, soft, nontender and nondistended. No masses. EXT: no cyanosis, clubbing, or edema MSK: No joint redness or swelling NEURO: CN 2-12 grossly intact. Normal movement of 4 extremities. Normal speech and coordination. moderate extremity tremor. gait is stable. SKIN: No rashes or open wounds. PSYCH: anxious mood and affect, normal speech, no hallucinations, normal thought process Results Labs 07/17/24 14:05 07/17/24 14:05 Labs: Laboratory Results - last 24 hr 07/17/24 07/17/24 14:05 14:45 WBC 4.88 RBC 5.58 Hgb 17.6 H Hct 50.4 H MCV 90 MCH 31.5 MCHC 34.9 RDW 12.0 Plt Count 164 MPV 9.9 Sodium 145 Potassium 3.8 Chloride 105 Carbon Dioxide 32.6 H Anion Gap 7.4 BUN 10 Creatinine 1.1 Est GFR (CKD-EPI 2020) 79.28 Glucose 129 H Calcium 8.6 Magnesium 2.4 Total Bilirubin 0.61 AST 51 H ALT 82 H Alkaline Phosphatase 75 Total Protein 7.7 Albumin 4.3 Urine Opiates Screen Negative Urine Methadone Screen Negative Ur Barbiturates Screen Negative Ur Tricyclics Screen Negative Ur Amphetamines Screen Negative U Benzodiazepines Scrn Negative Urine Cocaine Screen Negative Ur THC Screen Negative Ethyl Alcohol 405.1 H Last Vital Signs Temp 36.8 C 07/18/24 11:49 Pulse 111 H 07/18/24 11:49 Resp 20 07/18/24 11:49 BP 152/92 H 07/18/24 11:49 Pulse Ox 96 07/18/24 11:49 PAWSS Have you Been Recently Intoxicated or Drunk Within the Last 30 days?: Yes Have you Ever Experienced Previous Episodes of Alcohol Withdrawal?: Yes Have you ever Experienced Withdrawal Seizures?: No Have you ever Experienced Delirium Tremens(DT)s?: No Have you ever undergone Alcohol Rehabilitation Treatment (i.e, inpt ot outpatient treatment programs)?: Yes Have you ever Experienced Blackouts?: No Have you ever Combined Alcohol with other Downers within the last 90 days?: No Have you ever Combined Alcohol with any other Substance of Abuse during the last 90 days?: No Positive Blood Alcohol level on Presentation? [PCS.BAL]: Yes Evidence of Increased Autonomic Activity (i.e. HR>120, tremor, sweating, agitation, nausea)?: Yes Result: 5 Time Spent Time spent with Patient: 55-74 minutes Time was spent: preparing to see the patient(eg.review tests), obtaining and/or reviewing separately otained hiistory, ordering medications,tests, procedures, referring, communicating with other health primary care coordinator, indepentently interpreting results, counseling the patient and care coordination
[2024-07-18] MEDS: Naltrexone 50 MG TAB PO (12:12)
--- NOTE | 2024-07-18 12:19 | DSE_ITS ---
Date of service: 07/18/24 Time of Service: 12:20 DS: Diagnosis Discharge Diagnosis (1) Alcohol withdrawal: Status: Acute (2) Alcohol dependence: Status: Acute (3) Alcoholic liver disease: Status: Acute Discharge Plan Disposition Patient Disposition: Against Medical Advice Condition: Fair Discharge Details Reason For Visit: alcohol withdrawal Admit Date/Time: 07/18/24 08:19 Admit Provider: Gerard Frazier Attending Provider: Gerard Frazier Primary Care Provider: Ross Pugh [facility] Course Hospital Course: 54 yo M with alcohol use disorder. Recent relapse for 12 days after a 30 day stint in rehabilitation. He presented for alcohol withdrawal to ED, was observed over night but was exhibiting enough withdrawal symtpoms he was admitted to the medical floor. He was treated with the benzodiazepine withdrawal protocol along with additional chlordiazepoxide. See HPI He requested discharge the first day of admission despite still scoring on withdrawal protocol. He understands and can voice the risks of complicated alc ohol withdrawal including seizures. He was encouraged to stay for inpatient treatment but he declined. He was discharged with a fixed dose taper of chlordiazepoxide. He will not drive. He was given a dose of naltrexone prior to discharge and was encouraged to continue this and follow up with his addiction counselor. liver showed inflammation but not severe alcoholic hepatitis or cirrhosis, follow up as outpatient in the next 1-2 weeks with primary half-way Meds and New Rx's Prescriptions: New thiamine mononitrate (vit B1) [Vitamin B-1 (mononitrate)] 100 mg Tablet 100 mg PO QAM Qty: 0 0RF naltrexone 50 mg Tablet 50 mg PO DAILY Qty: 30 2RF chlordiazepoxide HCl 25 mg capsule See Rx Instructions .ROUTE .COMPLEX PRNQty: 24 0RF Rx Instructions: 4 caps TID day 1, then 4 caps BID day 2, then 4 caps qhs Continued atorvastatin 40 mg tablet 40 mg PO QHS Qty: 90 3RF multivitamin [Multiple Vitamins] Tablet 1 tab PO QAM Qty: 0 0RF folic acid 1 mg Tablet 1 mg PO QAM Qty: 30 0RF Discontinued magnesium chloride [Mag 64] 64 mg Tablet,Delayed Release (Dr/Ec) 64 mg PO DAILY Qty: 30 0RF Discharge Instructions Instructions: Alcohol Use Disorder (DC) Additional Instructions: take the chlordiazepoxide (Librium) as prescribed. This stays in your system for days after you are done taking it. Take the naltrexone daily starting tomorrow. Follow up with your therapist. Do not drive the remainder of this week. Activity:: Activity as Tolerated Equipment/Supplies:: No Equipment Needed Diet:: As Tolerated Discharge Orders Discharge Orders: Discharge Order (Routine); Ordered 07/18/24 Ordered By: Gerard Frazier DS: Summary Time Spent with Patient providing and/or coordinating discharge services: Greater than 30 minutes Status at Discharge Functional status at discharge: independent ambulation Overall status at discharge: patient is not back to baseline Mental Status: mental status grossly normal Speech and Movement: speech and movement normal Mood: anxious mood Affect: anxious affect Quality:SDOH Health Related Social Needs: No Data to Display Exam Narrative Exam Narrative: GEN: Alert and oriented x 4, anxious appearing, pacing, but pleasant and cooperative, gives linear history. HEENT: Head atraumatic. Conjunctiva clear, no icterus. PEERL, EOMI. no rhinorrhea. MMM, OP benign. Neck with no masses, trachea midline LUNGS: CTAB with normal effort CV: RRR with no murmurs, gallops, or rubs. ABD: active bowel sounds, soft, nontender and nondistended. No masses. EXT: no cyanosis, clubbing, or edema MSK: No joint redness or swelling NEURO: CN 2-12 grossly intact. Normal movement of 4 extremities. Normal speech and coordination. moderate extremity tremor. gait is stable. SKIN: No rashes or open wounds. PSYCH: anxious mood and affect, normal speech, no hallucinations, normal thought process Psych Mental Status: mental status grossly normal Speech and Movement: speech and movement normal Mood: anxious mood Affect: anxious affect DS: Data Vitals/I&O Vitals and I&O: Vital Signs Temperature 36.8 C 07/18/24 11:49 Temperature Source Tympanic 07/18/24 11:49 Pulse 111 H 07/18/24 11:49 Pulse Rhythm Regular 07/18/24 09:37 Pulse 103 H 07/17/24 21:56 Respiratory Rate 20 07/18/24 11:49 Respiratory Effort Normal, Non-Labored 07/18/24 09:37 Respiratory Depth Normal 07/18/24 09:37 Respiratory Pattern Normal 07/18/24 09:37 Blood Pressure 152/92 H 07/18/24 11:49 Blood Pressure Mean 109 07/17/24 21:56 Blood Pressure Position Sitting 07/17/24 14:08 Pulse Oximetry 96 07/18/24 11:49 Oxygen Delivery Method Room Air 07/18/24 11:49 Oxygen Flow Rate 0 07/18/24 11:49 Pain Level 0 07/18/24 11:23 Intake & Output 07/17/24 07/18/24 07/18/24 23:59 11:59 23:59 Intake Total 1000 / 1000 Balance 1000 / 1000 Weight 88.451 kg 88.723 kg Intake: IV 1000 / 1000 Other: Urine Color Yellow Urine Appearance Clear Urine Odor Normal Data Completed and Pending Labs on day of discharge: Labs from last 24 hours 07/17/24 07/17/24 14:45 14:05 WBC 4.88 RBC 5.58 Hgb 17.6 H Hct 50.4 H MCV 90 MCH 31.5 MCHC 34.9 RDW 12.0 Plt Count 164 MPV 9.9 Sodium 145 Potassium 3.8 Chloride 105 Carbon Dioxide 32.6 H Anion Gap 7.4 BUN 10 Creatinine 1.1 Est GFR (CKD-EPI 2020) 79.28 Glucose 129 H Calcium 8.6 Magnesium 2.4 Total Bilirubin 0.61 AST 51 H ALT 82 H Alkaline Phosphatase 75 Total Protein 7.7 Albumin 4.3 Urine Opiates Screen Negative Urine Methadone Screen Negative Ur Barbiturates Screen Negative Ur Tricyclics Screen Negative Ur Amphetamines Screen Negative U Benzodiazepines Scrn Negative Urine Cocaine Screen Negative Ur THC Screen Negative Ethyl Alcohol 405.1 H PFSH All Active Problems (Updated 07/18/24 @ 12:14 by Gerard Frazier) Alcoholic liver disease (Acute) Alcohol withdrawal (Acute) Alcohol intoxication in relapsed alcoholic (Acute) Alcohol dependence (Acute) Sexual dysfunction (Acute) Pudendal neuralgia (Acute) White coat syndrome without diagnosis of hypertension (Acute) Chronic rhinitis (Acute 12/21/91) Allergy Dr Meza 06/2012: chandu argueta Overweight (Acute 09/21/08) Solar keratosis (Acute 12/04/14) Medical History Labile hypertension (02/24/13) high in PM, good in office in AM; elevated at 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 risk 5% (12/2011); goal LDL<130 Surgical History No pertinent past surgical history Family History Mother Age: 82 ETOH abuse Father Age: 86 Diabetes Myocardial infarction Heart disease Hypertension Other Hyperlipidemia Social History Smoking/Tobacco Use Status: Never Smoking risk assessment performed?: Yes Alcohol Intake: current Alcohol Intake frequency: 3 or more drinks per day Alcohol type: hard liquor Counseling provided: other Details: 10/09/21 no alcohol x 30 days Drug use: Daily Substance use type: does not use Caregiver/Support person: No Household members: spouse and children Housing: house Number of Children: 3 Communication Needs: Corrective 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 Pets and animals: Yes Pets and animals: cat(s) Sexually active: Yes Do you think of yourself as: straight/heterosexual Current gender identity: male What is your relationship status?: How often do you talk on the phone with friends or family?: three or more times per week How often do you get together with friends or relatives?: three or more times per week How often do you attend spiritism or lutheran services?: decline to answer Do you belong to any clubs or organized social groups?: yes Panel score (0-1 are the most socially isolated patients): 3 What type of physical activity do you participate in: bicycling, weight lifting and running Duration: 60-90 minutes/day Frequency: daily Kala/Episcopalian: None Special kala needs: No Seatbelt use: sometimes Helmet use: Yes Drive intox or ride w/intox ross carrier 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 Additional Social history: Lives in [place], getting divorce from of 31 year. Grown children. 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
== END 2024-07-18 12:39 | disposition left against medical advice (07) | DRG 894 ==
LOC: ER 07-18 08:48 → MS 07-18 09:26
PROVIDERS: Emergency Medicine; Admitting Provider Family Medicine; Emergency Provider Student in an Organized Health Care Education/Training Program; PCP Family Medicine; Visit Provider Family Medicine
DX: F10.230 Alcohol dependence with withdrawal, uncomplicated (principal); K70.9 Alcoholic liver disease, unspecified; R10.2 Pelvic and perineal pain; E66.3 Overweight; J30.9 Allergic rhinitis, unspecified; Y90.8 Blood alcohol level of 240 mg/100 ml or more; I10 Essential (primary) hypertension; F41.9 Anxiety disorder, unspecified; E78.5 Hyperlipidemia, unspecified; K21.9 Gastro-esophageal reflux disease without esophagitis; Z68.28 Body mass index [BMI] 28.0-28.9, adult
CPT/HCPCS: 00123; 80053; 80307; 85027; 93005; 96361; 96374; 96375; 99291; 80320; 83735; 93010; 99222; J0780; J1885; J2060

== ENCOUNTER 2024-09-14 19:54 | Emergency (ER) | payer BC, SELFPAY ==
[2024-09-14 19:55] VITALS: BP 148/98; PULSE 93; RESP 20; TEMP 36.4; O2SAT 98
--- NOTE | 2024-09-14 20:09 | ED.GENADUL_ITS ---
Discharge Plan Disposition Patient Disposition: Home Condition: Stable Discharge Details Clinical Impression: Alcohol intoxication in relapsed alcoholic Primary Care Provider: Ross Pugh ED Provider: Sangeeta Perez Home Meds and New Rx's Prescriptions: No Action alprazolam 1 mg tablet 1 mg PO QHS PRN (Reason: sleep) Qty: 30 2RF atorvastatin 40 mg tablet 40 mg PO QHS Qty: 90 3RF naltrexone 50 mg Tablet 50 mg PO DAILY Qty: 30 2RF Discharge Instructions Instructions: Alcohol Intoxication ED Additional Instructions: You were seen in the emergency department today for evaluation and medical clearance prior to going to detox. In our department he had a full physical examination performed, and at this time do not require any further workup of any medical concerns. Please follow-up with your primary care provider in the next few days to discuss this visit and any symptoms that change, worsen, or persist. Thank you for allowing us to be part of your care. HPI General Mode of arrival: ambulatory . Date/Time Provider Initiated Documentation: 09/14/24 19:55 . Limitations to Documentation: no limitations . Information obtained by: patient, police and old records reviewed . HPI Narrative: HPI: This is a 54-year-old male patient with a past medical history significant for alcohol use disorder and no recent relapse, after several months of sobriety, presenting for evaluation for medical clearance for detox. The patient is in police custody, states that he was in his normal state of health prior to this event. He does not want to disclose how many drinks he had, states that he has not used any other substances such as nicotine, tobacco, or illicit drugs. Has not sustained trauma and has not had recent illness. States that he is not experiencing any acute complaints today. The patient has gone through alcohol withdrawal in the past, has never had an alcohol withdrawal seizure or DTs. Per PD, the patient had a breathalyzer test and blew a 0.215 approximately 1 hour ago. Exam: Gen: Awake and alert, in no apparent distress HEENT: Non-icteric sclera, PERRL, EOMs are full with horizontal nystagmus appreciated bilaterally Neck: Supple Lungs: No apparent respiratory distress, normal respiratory effort. CV: Appears well perfused, strong distal pulses Abdomen: Non-distended MSK: Moves 4 extremities without apparent limitation in ROM Skin: Visualized skin without rashes, cyanosis. Neuro: Normal Gait and able to stand without poor balance, no obvious focal deficits or facial asymmetry. Speaks in full, clear sentences. Accurate [id number] testing, able to sit up and interact during this provider's examination, traces a curve accurately. Psych: Appropriate for situation. MDM: This is a 54-year-old male patient presenting for medical clearance for detox. Differential includes but is not limited to alcohol intoxication, certainly considered withdrawal syndrome, patient is not on any medications which require level checking, has no suicidal or homicidal ideation concerning for comorbid psychiatric disturbance. He does not have diabetes and has been tolerating oral intake and making metabolic and electrolyte derangement less likely. ED Course: The patient was medically cleared using the [facility] medical clearance c [facility] and does not require any laboratory evaluation, advanced imaging, or other interventions. He was released to police custody and instructed to follow-up with primary care with any concerns. At this time, the patient has had a full medical evaluation and is safe for discharge. They are hemodynamically stable, ambulatory, and tolerating PO. They are understanding of the follow-up plan and return precautions. They left our facility without incident. Sangeeta Perez MD Related Data Home Medications ?Medication ?Instructions ?Recorded ?Confirmed atorvastatin 40 mg tablet 40 mg PO QHS #90 tabs 03/02/24 09/14/24 naltrexone 50 mg tablet 50 mg PO DAILY #30 tabs 07/18/24 09/14/24 alprazolam 1 mg tablet 1 mg PO QHS PRN sleep #30 tabs 08/28/24 09/14/24 Previous Rx's ?Medication ?Instructions ?Recorded atorvastatin 40 mg tablet 40 mg PO QHS #90 tabs 03/02/24 naltrexone 50 mg tablet 50 mg PO DAILY #30 tabs 07/18/24 alprazolam 1 mg tablet 1 mg PO QHS PRN sleep #30 tabs 08/28/24 Allergies Allergy/AdvReac Type Severity Reaction Status Date / Time lisinopril AdvReac Intermediate Dry Cough Verified 09/14/24 20:01 General Stated Complaint: ETOHWithdr GREGORY: 4 Course Vital Signs Vital signs: Vital Signs Temperature 36.4 C 09/14/24 19:55 Pulse 93 H 09/14/24 19:55 Respiratory Rate 20 09/14/24 19:55 Blood Pressure 148/98 H 09/14/24 19:55 Pulse Oximetry 98 09/14/24 19:55 Temperature 36.4 C 09/14/24 19:55 Temperature Source Oral 09/14/24 19:55 Pulse 93 H 09/14/24 19:55 Respiratory Rate 20 09/14/24 19:55 Blood Pressure 148/98 H 09/14/24 19:55 Blood Pressure Position Sitting 09/14/24 19:55 Pulse Oximetry 98 09/14/24 19:55 Oxygen Delivery Method Room Air 09/14/24 19:55 Oxygen Flow Rate 0 09/14/24 19:55 Pain Level 0 09/14/24 19:55 Medical Decision Making Quality:SDOH Health Related Social Needs: No Data to Display PFSH All Active Problems (Updated 09/14/24 @ 20:09 by Sangeeta Perez MD) De Quervain's tenosynovitis, bilateral (Acute) Alcoholic liver disease (Acute) Alcohol withdrawal (Acute) Alcohol intoxication in relapsed alcoholic (Acute) Alcohol dependence (Acute) Sexual dysfunction (Acute) Pudendal neuralgia (Acute) White coat syndrome without diagnosis of hypertension (Acute) Chronic rhinitis (Acute 12/21/91) Allergy Dr Meza 06/2012: singulair zyrtec Overweight (Acute 09/21/08) Solar keratosis (Acute 12/04/14) Medical History Labile hypertension (02/24/13) high in PM, good in office in AM; 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 risk 5% (12/2011); goal LDL<130 Surgical History No pertinent past surgical history Family History Mother Age: 82 ETOH abuse Father Age: 86 Diabetes Myocardial infarction Heart disease Hypertension Other Hyperlipidemia Social History Smoking/Tobacco Use Status: Never Smoking risk assessment performed?: Yes Alcohol Intake: current Alcohol Intake frequency: 3 or more drinks per day Alcohol type: hard liquor Counseling provided: other Details: 10/09/21 no alcohol x 30 days Drug use: Rarely Substance use type: does not use Caregiver/Support person: No Household members: spouse and children Housing: house Number of Children: 3 Communication Needs: Corrective 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 Pets and animals: Yes Pets and animals: cat(s) Sexually active: Yes Do you think of yourself as: straight/heterosexual Current gender identity: male What is your relationship status?: How often do you talk on the phone with friends or family?: three or more times per week How often do you get together with friends or relatives?: three or more times per week How often do you attend mu-ism or samaritan services?: decline to answer Do you belong to any clubs or organized social groups?: yes Panel score (0-1 are the most socially isolated patients): 3 What type of physical activity do you participate in: bicycling, weight lifting and running Duration: 60-90 minutes/day Frequency: daily Kala/Tenriism: None Special kala needs: No Seatbelt use: sometimes Helmet use: Yes Drive intox or ride w/intox warehouse 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 Additional Social history: Lives in [place], getting divorce from of 31 year. Grown children. 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
== END 2024-09-14 20:13 | disposition home or self-care (01) ==
LOC: ER 20:15
PROVIDERS: Emergency Provider Emergency Medicine; PCP Family Medicine
DX: I10 Essential (primary) hypertension; F10.20 Alcohol dependence, uncomplicated
CPT/HCPCS: 99285; 99283

== ENCOUNTER 2024-10-30 16:46 | Emergency (ER) | payer BC, SELFPAY ==
[2024-10-30] VITALS (58 sets, daily range): BP systolic 150–186; BP diastolic 86–116; PULSE 83–103; RESP 12–24; TEMP 36.7; O2SAT 92–100
[2024-10-30] MEDS: diazePAM 5 MG TAB 10 MG PO ×3 (19:35→22:58)
[2024-10-30] MEDS: Normal Saline 1,000 ML 1000 ML IV (19:43)
[2024-10-30 20:03] LABS: BUN 11 mg/dL (7-18); CREATININE 0.7 mg/dL (0.70-1.30); Chloride 103 mmol/L (98-107); Estimated GFR 108.82 (mL/min/1.73m2); Glucose 104 mg/dL (74-106); Potassium 3.7 mmol/L (3.5-5.1); Sodium 142 mmol/L (136-145)
[2024-10-30] MEDS: diazePAM 10 MG/2 ML SYR 5 MG IVP (20:14)
[2024-10-30] MEDS: cloNIDine 0.1 MG TAB PO (20:56)
[2024-10-30] MEDS: hydrALAZINE 20 MG/ML VIAL 10 MG IVP (21:50)
[2024-10-30 22:33] LABS: Lab Add On Test DONE
[2024-10-30 22:47] LABS: ALT 68 U/L (16-63); AST 67 U/L (15-37); Albumin 3.7 g/dL (3.4-5.0); Alkaline Phosphatase 69 U/L (46-116); Bilirubin, Direct 0.2 mg/dL (0.0-0.2); Bilirubin, Total 0.7 mg/dL (0.2-1.0); Total Protein 7.4 g/dL (6.4-8.2)
--- NOTE | 2024-10-30 22:54 | ED.GENADUL_ITS ---
Discharge Plan Disposition Patient Disposition: Home Condition: Stable Discharge Details Clinical Impression: Alcohol withdrawal Primary Care Provider: Ross Pugh ED Provider: Radha Montero Home Meds and New Rx's Prescriptions: No Action alprazolam 2 mg tablet 2 mg PO QHS Qty: 14 0RF atorvastatin 40 mg tablet 40 mg PO QHS Qty: 90 3RF Discharge Instructions Additional Instructions: You presented with mild symptoms of alcohol withdrawal and were given IV fluids, benzodiazepines and clonidine to treat your blood pressure. You are going home with a few doses of clonidine and Valium. Any additional medication to treat your alcohol withdrawal should come from your primary care provider or rehab facility. You are offered the population health coach but declined to speak to them at that time. Please return with any worsening symptoms, vomiting not tolerating anything by mouth severe shaking or seizures. HPI General Date/Time Provider Initiated Documentation: 10/30/24 18:22 . Limitations to Documentation: no limitations . Information obtained by: patient . HPI Narrative: 54-year-old gentleman with past medical history of alcohol abuse presents for evaluation of alcohol withdrawal symptoms. He reports that he had been sober for several months but started drinking heavily again in November. Today he only had 4 light beers which is significantly less alcohol intake than he usually does, but he was not able to quantify the amount of alcohol that he drinks on a daily basis. He reports some tremor, some shaking, some anxiety. He denies any history of alcohol withdrawal seizures. He has not had any vomiting. He has been drinking water throughout the day. He does report that he wants to be sober. Related Data Home Medications ?Medication ?Instructions ?Recorded ?Confirmed atorvastatin 40 mg tablet 40 mg PO QHS #90 tabs 03/02/24 10/30/24 alprazolam 2 mg tablet 2 mg PO QHS #14 tabs 10/10/24 10/30/24 Previous Rx's ?Medication ?Instructions ?Recorded atorvastatin 40 mg tablet 40 mg PO QHS #90 tabs 03/02/24 alprazolam 2 mg tablet 2 mg PO QHS #14 tabs 10/10/24 Allergies Allergy/AdvReac Type Severity Reaction Status Date / Time lisinopril AdvReac Intermediate Dry Cough Verified 10/10/24 10:19 General Stated Complaint: ETOHWithdr GREGORY: 3 Exam Narrative Exam Narrative: Review of Systems: All systems reviewed & are unremarkable except as noted in HPI and below Well-developed, no acute distress NCAT Slight tachycardia and hypertension Unlabored respiratory effort clear bilaterally Nondistended abdomen soft nontender no focal neurologic deficits, slight agitation movements noted in his feet, but no resting upper extremity tremor, slight tremor with holding his hands out right, Appropriate mood and affect Course Vital Signs Vital signs: Vital Signs Temperature 36.7 C 10/30/24 16:50 Pulse 97 H 10/30/24 16:50 Respiratory Rate 20 10/30/24 16:50 Blood Pressure 163/103 H 10/30/24 16:50 Pulse Oximetry 92 10/30/24 16:50 Temperature 36.7 C 10/30/24 16:50 Pulse 98 H 10/30/24 22:46 Pulse 100 H 10/30/24 22:46 Respiratory Rate 16 10/30/24 22:46 Respiratory Pattern Normal 10/30/24 22:40 Blood Pressure 160/101 H 10/30/24 22:46 Blood Pressure Mean 119 10/30/24 22:46 Blood Pressure Position Sitting 10/30/24 16:50 Pulse Oximetry 92 10/30/24 16:50 Oxygen Delivery Method Room Air 10/30/24 16:50 Oxygen Flow Rate 0 10/30/24 16:50 Lab/Test Results Lab/Test Results: Laboratory Tests Range/Units 10/30/24 10/30/24 19:40 22:27 Sodium (136-145) mmol/L 142 Potassium (3.5-5.1) mmol/L 3.7 Chloride (98-107) mmol/L 103 Carbon Dioxide (21.0-32.0) mmol/L 28.0 Anion Gap (3-11) mmol/L 11.0 BUN (7-18) mg/dL 11 Creatinine (0.70-1.30) mg/dL 0.7 Est GFR (CKD-EPI 2020) (mL/min/1.73m2) 108.82 Glucose (74-106) mg/dL 104 Calcium (8.5-10.1) mg/dL 9.0 Total Bilirubin (0.2-1.0) mg/dL 0.7 Conjugated Bilirubin (0.0-0.2) mg/dL 0.2 AST (15-37) U/L 67 H ALT (16-63) U/L 68 H Alkaline Phosphatase (46-116) U/L 69 Total Protein (6.4-8.2) g/dL 7.4 Albumin (3.4-5.0) g/dL 3.7 Add-On Test Request DONE Medical Decision Making Emergent evaluation of alcohol withdrawal. On presentation, the patient presents with a CIWA score of 8. Mild tachycardia, hypertension, anxiety agitation and slight tremor. Will give some IV fluids and IV and oral medications for treatment of this. Patient is also noted to be hypertensive. After few doses of medication, his symptoms did significantly improve. His overall anxiety decreased significantly. At this time I feel he is stable for discharge home. Will discharge with a few doses of clonidine to take as well aS 2 doses of Valium. I do not do not feel comfortable providing any additional prescriptions for benzodiazepine or long-term medications like Ativan or Xanax like he is requesting as he is not interested in discussing anything with the sobriety retail performance coach and he does not have a clear plan for sobriety at home. Any additional medication should be prescribed via his PCP or rehab facility Quality:SDOH Health Related Social Needs: No Data to Display PFSH All Active Problems (Updated 10/30/24 @ 22:27 by Radha Montero MD) De Quervain's tenosynovitis, bilateral (Acute) Alcoholic liver disease (Acute) Alcohol withdrawal (Acute) Alcohol intoxication in relapsed alcoholic (Acute) Alcohol dependence (Acute) Sexual dysfunction (Acute) Pudendal neuralgia (Acute) White coat syndrome without diagnosis of hypertension (Acute) Chronic rhinitis (Acute 12/21/91) Allergy Dr Meza 06/2012: chandu argueta Overweight (Acute 09/21/08) Solar keratosis (Acute 12/04/14) Medical History Labile hypertension (02/24/13) high in PM, good in office in AM; 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 risk 5% (12/2011); goal LDL<130 Surgical History No pertinent past surgical history Family History Mother Age: 82 ETOH abuse Father Age: 86 Diabetes Myocardial infarction Heart disease Hypertension Other Hyperlipidemia 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 Pets and animals: Yes Pets and animals: cat(s) Sexually active: Yes Do you think of yourself as: straight/heterosexual Current gender identity: male What is your relationship status?: How often do you talk on the phone with friends or family?: three or more times per week How often do you get together with friends or relatives?: three or more times per week How often do you attend bahai or yazidi services?: decline to answer Do you belong to any clubs or organized social groups?: yes Panel score (0-1 are the most socially isolated patients): 3 What type of physical activity do you participate in: bicycling, weight lifting and running Duration: 60-90 minutes/day Frequency: daily Kala/Sabianist: None Special kala needs: No Seatbelt use: sometimes Helmet use: Yes Drive intox or ride w/intox limb 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 Additional Social history: Lives in [place], getting divorce from of 31 year. Grown children. 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 [facility] Have you Been Recently Intoxicated or Drunk Within the Last 30 days?: Yes Have you Ever Experienced Previous Episodes of Alcohol Withdrawal?: Yes Have you ever Experienced Withdrawal Seizures?: No Have you ever Experienced Delirium Tremens(DT)s?: No Have you ever undergone Alcohol Rehabilitation Treatment (i.e, inpt ot outpatie nt treatment programs)?: Yes Have you ever Experienced Blackouts?: No Have you ever Combined Alcohol with other Downers within the last 90 days?: Yes Have you ever Combined Alcohol with any other Substance of Abuse during the last 90 days?: No Positive Blood Alcohol level on Presentation? [PCS.BAL]: Yes Evidence of Increased Autonomic Activity (i.e. HR>120, tremor, sweating, agitation, nausea)?: Yes Result: 5
[2024-10-30] MEDS: cloNIDine 0.1 MG TAB 0.3 MG PO (22:58)
== END 2024-10-30 23:07 | disposition home or self-care (01) ==
PROVIDERS: Emergency Provider Emergency Medicine; PCP Family Medicine
DX: F41.9 Anxiety disorder, unspecified (principal); F10.230 Alcohol dependence with withdrawal, uncomplicated; I10 Essential (primary) hypertension; E78.5 Hyperlipidemia, unspecified
CPT/HCPCS: 80048; 80076; 96361; 96374; 96375; 99284; 99283; J0360; J3360

== ENCOUNTER 2024-11-06 14:52 | Emergency (ER) | payer BC, SELFPAY ==
[2024-11-06 14:55] VITALS: BP 141/96; PULSE 93; RESP 15; TEMP 36.7; O2SAT 96
--- NOTE | 2024-11-06 15:11 | ED.GENADUL_ITS ---
Discharge Plan Disposition Patient Disposition: Home Condition: Stable Discharge Details Clinical Impression: Contusion of hand, left Primary Care Provider: Ross Pugh ED Provider: Sangeeta Perez Home Meds and New Rx's Prescriptions: No Action atorvastatin 40 mg tablet 40 mg PO QHS Qty: 90 3RF alprazolam 2 mg tablet 2 mg PO QHS Qty: 14 0RF Discharge Instructions Instructions: Taking care of bruises Additional Instructions: You were seen in the emergency department today for evaluation of bruising and swelling of your left hand. In our department had a full physical examination performed and had an x-ray that showed no fractures or dislocations. You likely have bad bruising and potentially a hematoma or collection of blood in that area of swelling. Please continue to use Tylenol and ibuprofen as needed, ice and elevation for swelling, and please follow-up with your primary care provider in the next few days to discuss this visit and any symptoms that change, worsen, or persist. Thank you for allowing us to be part of your care. Discharge Data Discharge Date/Time-TO BE ENTERED AT DEPARTURE: 11/06/24 16:20 HPI General Mode of arrival: ambulatory . Date/Time Provider Initiated Documentation: 11/06/24 14:54 . Limitations to Documentation: no limitations . Information obtained by: patient and old records reviewed . HPI Narrative: HPI: This is a 54-year-old male patient with a past medical history significant for alcohol use disorder in recent remission, presenting for evaluation of hand bruising and swelling. The patient reports that he believes that he injured this 2 weeks ago, cannot think of a specific incident but did have an episode where snow and ice fell off a roof and caused some bruising and injury. He reports he is able to move and use his left hand without significant pain, rates the severity of his pain at a 1 out of 10. He has noted significant bruising over the dorsal aspect of the hand that has extended down into the proximal aspects of his 2nd through 4th fingers. He reports no limitation in range of motion, does note a funny sensation in his thumb, and notes a point of swelling in between the knuckles of his second and third digit. The patient reports that he was advised to seek care here by his primary care provider given the lack of improvement over the last few weeks. Does not believe there was any opportunity for a foreign body to get into his hand, has not noted any skin breaks, otherwise no acute concerns today. Exam: Gen: Awake and alert, in no apparent distress HEENT: Non-icteric sclera Neck: Supple Lungs: No apparent respiratory distress, normal respiratory effort. CV: Appears well perfused Abdomen: Non-distended MSK: Moves 4 extremities without apparent limitation in ROM. The patient has full resisted range of motion of the fingers in both flexion and extension at all joints. He has ecchymosis on the dorsal aspect of the left hand that extends down to the proximal phalanx of digits 2 through 3. He does have a firm area of localized swelling in between the second and third MCPs, no anatomic snuffbox tenderness, brisk capillary refill distal to this injury, no skin breaks appreciated, no induration, warmth. Skin: Visualized skin without rashes, cyanosis. Neuro: Normal Gait, no obvious focal deficits or facial asymmetry. Speaks in full, clear sentences. Psych: Appropriate for situation. MDM: This is a 54-year-old male patient presenting for evaluation of a hand injury. My differential includes but is not limited to fracture, dislocation, contusion, hematoma, foreign body. No evidence for neurovascular derangement on my physical examination. The patient at this time is not desiring of any medications for management of pain, we will obtain an x-ray to better characterize any osseous abnormalities. ED Course: I independently reviewed the patient's x-ray imaging, which shows no evidence of fracture, dislocation, or foreign body. I am most concerned for ecchymosis/contusion plus or minus small hematoma, and this was shared with the patient. Recommended conservative management with elevation, ice, Tylenol and ibuprofen. At this time, the patient has had a full medical evaluation and is safe for discharge to home. They are hemodynamically stable, ambulatory, and tolerating PO. They are understanding of the follow-up plan and return precautions. They left our facility without incident. Sangeeta Perez MD Related Data Home Medications ?Medication ?Instructions ?Recorded ?Confirmed atorvastatin 40 mg tablet 40 mg PO QHS #90 tabs 03/02/24 11/06/24 alprazolam 2 mg tablet 2 mg PO QHS #14 tabs 11/06/24 11/06/24 Previous Rx's ?Medication ?Instructions ?Recorded atorvastatin 40 mg tablet 40 mg PO QHS #90 tabs 03/02/24 alprazolam 2 mg tablet 2 mg PO QHS #14 tabs 11/06/24 Allergies Allergy/AdvReac Type Severity Reaction Status Date / Time lisinopril AdvReac Intermediate Dry Cough Verified 11/06/24 15:00 General Stated Complaint: Orthopedic GREGORY: 4 Course Vital Signs Vital signs: Vital Signs Temperature 36.7 C 11/06/24 14:55 Pulse 93 H 11/06/24 14:55 Respiratory Rate 15 11/06/24 14:55 Blood Pressure 141/96 H 11/06/24 14:55 Pulse Oximetry 96 11/06/24 14:55 Temperature 36.7 C 11/06/24 14:55 Pulse 93 H 11/06/24 14:55 Respiratory Rate 15 11/06/24 14:55 Blood Pressure 141/96 H 11/06/24 14:55 Blood Pressure Position Sitting 11/06/24 14:55 Pulse Oximetry 96 11/06/24 14:55 Oxygen Delivery Method Room Air 11/06/24 14:55 Oxygen Flow Rate 0 11/06/24 14:55 Medical Decision Making Quality:SDOH Health Related Social Needs: No Data to Display PFSH All Active Problems (Updated 11/06/24 @ 16:14 by Sangeeta Perez MD) Contusion of hand, left (Acute) De Quervain's tenosynovitis, bilateral (Acute) Alcoholic liver disease (Acute) Alcohol withdrawal (Acute) Alcohol intoxication in relapsed alcoholic (Acute) Alcohol dependence (Acute) Sexual dysfunction (Acute) Pudendal neuralgia (Acute) White coat syndrome without diagnosis of hypertension (Acute) Chronic rhinitis (Acute 12/21/91) Allergy Dr Meza 06/2012: chandu zyrtec Overweight (Acute 09/21/08) Solar keratosis (Acute 12/04/14) Medical History Labile hypertension (02/24/13) high in PM, good in office in AM; 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 risk 5% (12/2011); goal LDL<130 Surgical History No pertinent past surgical history Family History Mother Age: 82 ETOH abuse Father Age: 86 Diabetes Myocardial infarction Heart disease Hypertension Other Hyperlipidemia 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 Pets and animals: Yes Pets and animals: cat(s) Sexually active: Yes Do you think of yourself as: straight/heterosexual Current gender identity: male What is your relationship status?: How often do you talk on the phone with friends or family?: three or more times per week How often do you get together with friends or relatives?: three or more times per week How often do you attend alevism or catholic services?: decline to answer Do you belong to any clubs or organized social groups?: yes Panel score (0-1 are the most socially isolated patients): 3 What type of physical activity do you participate in: bicycling, weight lifting and running Duration: 60-90 minutes/day Frequency: daily Kala/Synagogue: None Special kala needs: No Seatbelt use: sometimes Helmet use: Yes Drive intox or ride w/intox hazmat cdl a 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 Additional Social history: Lives in [place], getting divorce from of 31 year. Grown children. 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 [facility] Have you Been Recently Intoxicated or Drunk Within the Last 30 days?: No Have you Ever Experienced Previous Episodes of Alcohol Withdrawal?: No Have you ever Experienced Withdrawal Seizures?: No Have you ever Experienced Delirium Tremens(DT)s?: No Have you ever undergone Alcohol Rehabilitation Treatment (i.e, inpt ot outpatient treatment programs)?: No Have you ever Experienced Blackouts?: No Have you ever Combined Alcohol with other Downers within the last 90 days?: No Have you ever Combined Alcohol with any other Substance of Abuse during the last 90 days?: No Positive Blood Alcohol level on Presentation? [PCS.BAL]: No Evidence of Increased Autonomic Activity (i.e. HR>120, tremor, sweating, agitation, nausea)?: No Result: 0
--- NOTE | 2024-11-06 15:30 | DI.RAD_ITS ---
Exam(s) XR HAND LT COMPLETE EXAM: XR HAND LT COMPLETE CLINICAL HISTORY: bruising, swelling between MCP 2 and 3. TECHNIQUE: 2D digital imaging was performed of the left hand. Three views were obtained. AP, later al and oblique views were obtained. COMPARISON: No exams were available for comparison FINDINGS: BONES: No acute fracture is present. No bony destructive lesion is seen. There is a tiny well cortica tl osseous density at the radial aspect of the head of the middle phalanx of the middle finger. It appears well corticated and is likely old. JOINTS: No dislocation present. SOFT TISSUE: No radiopaque foreign bodies are seen in the soft tissues. IMPRESSION: No acute fracture or dislocation is present. DATA REPOSITORY: RADIATION DOSE DELIVERED:
== END 2024-11-06 16:20 | disposition home or self-care (01) ==
PROVIDERS: Emergency Provider Emergency Medicine; PCP Family Medicine
DX: S60.222A Contusion of left hand, initial encounter (principal); X58.XXXA Exposure to other specified factors, initial encounter
CPT/HCPCS: 99283; 73130

== ENCOUNTER 2025-06-05 09:42 | Emergency (ER) | payer BC, SELFPAY ==
[2025-06-05 09:44] VITALS: BP 150/101; PULSE 97; RESP 18; TEMP 36.6; O2SAT 95
--- NOTE | 2025-06-05 10:00 | DI.RAD_ITS ---
Exam(s) XR CHEST 1V IN DI DEPT EXAM: XR CHEST 1V IN DI DEPT CLINICAL HISTORY: Trauma TECHNIQUE: 2D digital imaging was performed. COMPARISON: CT CT CHEST/ABD/PEL W from 04/24/2024 FINDINGS: LUNGS: Clear. No pleural abnormality seen. HEART: Normal size. AORTA: Normal diameter. BONES: Unremarkable for age. Soft tissues: Unremarkable. IMPRESSION: No acute findings. DATA REPOSITORY: RADIATION DOSE DELIVERED:
[2025-06-05] MEDS: Normal Saline 500 ML 1000 ML IV (10:15)
--- NOTE | 2025-06-05 10:21 | ED.GENADUL_ITS ---
Discharge Plan Disposition Patient Disposition: Home Discharge Details Clinical Impression: Alcohol intoxication, Laceration of scalp Primary Care Provider: Ross Pugh ED Provider: Gerard Benavides Home Meds and New Rx's Prescriptions: Continued alprazolam 2 mg tablet 2 mg PO QHS Qty: 28 1RF Rx Instructions: Fill date 21 January 2025 atorvastatin 40 mg tablet 40 mg PO QHS Qty: 90 3RF Discharge Instructions Additional Instructions: You were seen in the emergency department for your scalp laceration which was closed with 7 meliton that will need to be removed in 7 to 10 days. As we discussed, please keep your wound clean, dry and covered. Please do not soak in a tub, swim or engage in any activities which could introduce dirt into your wound. You may return to the emergency department, go to urgent care or go to your primary care provider in 7 to 10 days to have your stitches removed. As we discussed if you develop any foul-smelling drainage fevers streaking signs of infection or have any other concerns please return to the emergency department. For your pain please take medications as follows: 1. Take acetaminophen (Tylenol), 1,000 mg (two 500 mg tabs) every 6 hours [2. Take ibuprofen (Advil), 400 mg every 6 hours.] Discharge Data Discharge Date/Time-TO BE ENTERED AT DEPARTURE: 06/05/25 12:27 HPI General Date/Time Provider Initiated Documentation: 06/05/25 09:52 . HPI Narrative: MDM Primary survey intact. Reassuring shock index. Secondary survey patient has a large hemostatic right scalp laceration. Given distracting injury we will also obtain CT cervical spine in addition to CT head. I have updated the patient's tetanus status. Will obtain chest x-ray. Patient has been ambulatory since fall so my suspicion for hip fracture is low. Will obtain basic labs and ethanol level. Patient is not anticoagulated to suggest benefit from reversal. 11:27 AM Basic metabolic panel showing no EJ. Mild anion gap. Mild hyperglycemia. No rmal bicarbonate?test not consistent with DKA. Normal INR. Markedly elevated ethanol level. CBC lacks anemia thrombocytopenia leukocytosis. Chest x-ray with no acute cardiopulmonary process. CT head and cervical spine with right frontal scalp laceration but no intracranial abnormalities acutely. Cervical spine with no acute osseous abnormalities. 4:05 PM Patient had passed an ambulatory and p.o. trial in the emergency department. His ethanol level was markedly elevated. He was ambulating with a steady gait. His son was coming to pick him up. [facility] HPI This is a male with a history of alcohol use presenting with a head injury. He is accompanied by his son. This morning, the patient experienced a fall from his bed, resulting in a head injury. He did not lose consciousness during the incident. The patient reports that he was found in a pool of blood, estimated to be between a quarter to half a gallon. He has been able to walk since the incident and reports no other areas of pain. He is not currently on any anticoagulant therapy. His daily medication includes Xanax. The patient reports consuming alcohol heavily over the past few days, although he had abstained from alcohol for the previous 6 months. He does not experience tremors when abstaining from alcohol. The patient also reports persistent neck pain for the past 6 months. Exam General: Well-appearing in no acute distress speaking in complete sentences. Head: Normocephalic. Patient has a large approximately 7 cm temporal scalp laceration that is hemostatic. Eye:[Pupils equal, round reactive to light.] Extraocular eye movements intact. No conjunctival injection. No scleral icterus. Ear, nose, mouth, throat: Grossly normal inspection. Normal voice, handling secretions normally. Bilateral TMs clear. No septal hematoma. Neck: Trachea midline. No midline cervical spinal tenderness. Cardiovascular: Well-perfused distal extremities. Regular rate and rhythm. Respiratory: Nonlabored respiration. Equal breath sounds bilaterally. Gastrointestinal: Nondistended abdomen. Soft nontender. Musculoskeletal: No edema. Moving all 4 extremities spontaneously. Nontender bilateral upper and lower extremities. Skin: Normal for age and race, grossly normal temperature and turgor. No acute rash. Neurologic: Alert and appropriate, no apparent acute deficits. GCS 15. Related Data Home Medications ?Medication ?Instructions ?Recorded ?Confirmed atorvastatin 40 mg tablet 40 mg PO QHS #90 tabs 03/16/25 alprazolam 2 mg tablet 2 mg PO QHS #28 tabs 2 5 03/16/25 Previous Rx's ?Medication ?Instructions ?Recorded atorvastatin 40 mg tablet 40 mg PO QHS #90 tabs alprazolam 2 mg tablet 2 mg PO QHS #28 tabs 5 Allergies Allergy/AdvReac Type Severity Reaction Status Date / Time lisinopril AdvReac Intermediate Dry Cough Verified 06/05/25 09:49 General Stated Complaint: Laceration GREGORY: 2 Course Vital Signs Vital signs: Vital Signs Temperature 36.6 C 06/05/25 09:44 Pulse 97 H 06/05/25 09:44 Respiratory Rate 18 06/05/25 09:44 Blood Pressure 150/101 H 06/05/25 09:44 Pulse Oximetry 95 06/05/25 09:44 Temperature 36.6 C 06/05/25 09:44 Temperature Source Oral 06/05/25 09:44 Pulse 97 H 06/05/25 09:44 Respiratory Rate 18 06/05/25 09:44 Blood Pressure 150/101 H 06/05/25 09:44 Pulse Oximetry 95 06/05/25 09:44 Oxygen Delivery Method Room Air 06/05/25 09:44 Oxygen Flow Rate 0 06/05/25 09:44 Procedure Laceration Laceration 1: Date of Procedure: 06/05/25 Time of procedure: 11:39 Provider that performed the procedure: Gerard Benavides Patient Consented: Verbally Site: scalp Side (If applicable): right Description: linear Pre-repair:: wound explored and irrigated extensively Skin layer closed with: meliton (7) Complications: None Procedure Description/Note: Patient tolerated procedure well. PFSH All Active Problems (Updated 06/05/25 @ 11:42 by Gerard Benavides MD) Laceration of scalp (Acute) Alcohol intoxication (Acute) De Quervain's tenosynovitis, bilateral (Acute) Alcoholic liver disease (Acute) Alcohol withdrawal (Acute) Alcohol intoxication in relapsed alcoholic (Acute) Alcohol dependence (Acute) Sexual dysfunction (Acute) Pudendal neuralgia (Acute) White coat syndrome without diagnosis of hypertension (Acute) Chronic rhinitis (Acute 12/21/91) Allergy Dr Meza 06/2012: chandu argueta Overweight (Acute 09/21/08) Solar keratosis (Acute 12/04/14) Medical History Labile hypertension (02/24/13) high in PM, good in office in AM; 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 risk 5% (12/2011); goal LDL<130 Surgical History No pertinent past surgical history Family History Mother Age: 82 ETOH abuse Father Age: 86 Diabetes Myocardial infarction Heart disease Hypertension Other Hyperlipidemia 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 Pets and animals: Yes Pets and animals: cat(s) Sexually active: Yes Do you think of yourself as: straight/heterosexual Current gender identity: male What is your relationship status?: How often do you talk on the phone with friends or family?: three or more times per week How often do you get together with friends or relatives?: three or more times per week How often do you attend hindu or yazidi services?: decline to answer Do you belong to any clubs or organized social groups?: yes Panel score (0-1 are the most socially isolated patients): 3 What type of physical activity do you participate in: bicycling, weight lifting and running Duration: 60-90 minutes/day Frequency: daily Kala/Jainism: None Special kala needs: No Seatbelt use: sometimes Helmet use: Yes Drive intox or ride w/intox 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 Grown children. 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
[2025-06-05 10:29] LABS: Abs Immature Grans 0.05 10^3/uL (0.0-0.06); HCT 50.0 % (40.0-50.0); HGB 17.5 g/dL (13.5-17.5); Immature Grans % 0.7 %; MCH 30.9 pg (27.0-33.0); MCHC 35.0 % (32.0-36.0); MCV 88 fL (80-95); MPV 9.5 fL (8.0-11.0); Platelet Count 255 10^3/uL (130-400); RBC 5.67 10^6/uL (4.36-5.78); RDW 11.9 % (11.8-14.1); RDW-SD 38.0 fL; WBC 6.91 10^3/uL (4.4-10.8)
[2025-06-05 10:33] LABS: INR 1.0 (0.9-1.1); Prothrombin Time 10.0 sec (9.1-11.1)
[2025-06-05 10:39] LABS: Anion Gap 12.0 mmol/L (3-11); BUN 10 mg/dL (7-18); CO2 32.0 mmol/L (21.0-32.0); Calcium 8.5 mg/dL (8.5-10.1); Chloride 99 mmol/L (98-107); Estimated GFR 78.79 (mL/min/1.73m2); Glucose 135 mg/dL (74-106); Potassium 3.8 mmol/L (3.5-5.1); Sodium 143 mmol/L (136-145)
--- NOTE | 2025-06-05 11:04 | DI.CT_ITS ---
Exam(s) CT HEAD CERVICAL SPINE WO EXAM: CT HEAD CERVICAL SPINE WO CLINICAL HISTORY: Fall, Head Injury, trauma. TECHNIQUE: Imaging Protocol: Axial computed tomography images with coronal and sagittal reformatted images were created and reviewed COMPARISON: CT CT HEAD CERVICAL SPINE WO from 04/24/2024 FINDINGS: Head CT Ventricles and Extra axial spaces: Normal in size and morphology for the patient's age. Hemorrhage: None. Cerebral parenchyma: No evidence of mass or acute infarct. Midline shift: None. Brainstem/Cerebellum: Normal. Calvarium: Normal. Visualized Paranasal sinuses/Mastoids: Clear. Soft tissues: Right frontal scalp laceration. Cervical Spine CT BONES: Vertebral body heights are maintained. Alignment is normal. There is no evidence of acute fracture. 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 Degenerative disc changes and facet degenerative changes are seen . SOFT TISSUES: No paraspinal hematoma. The airway appears intact. No pneumothorax is seen at the lung apices. IMPRESSION: Head CT: Right frontal scalp laceration. No acute intracranial abnormality. C-spine CT: Degenerative changes, no acute abnormality. RADIATION DOSE DELIVERED: 1,415.83mGy.cm Total DLP DATA REPOSITORY: All CT scans at this facility are submitted to the National Radiology Data Registry (NRDR) Dose Index Registry (DIR) with the [employer] (ACR). RADIATION OPTIMIZATION: All CT scans at this facility use at least one of these dose optimization techniques: automated exposure control; mA and/or kV adjustment per patient size (includes targeted exams where dose is matched to clinical indication); or iterative reconstruction.
[2025-06-05 12:23] VITALS: BP 138/76; PULSE 52; RESP 16; O2SAT 98
== END 2025-06-05 12:27 | disposition home or self-care (01) ==
PROVIDERS: Emergency Provider Emergency Medicine; PCP Family Medicine
DX: S01.01XA Laceration without foreign body of scalp, initial encounter (principal); F10.929 Alcohol use, unspecified with intoxication, unspecified; W19.XXXA Unspecified fall, initial encounter
CPT/HCPCS: 99284 ×2; 36416; 82962; 12002; 80048; 86850; 86900; 86901; 96360; 70450; 71045; 72125; 80320; 85025; 85610

== ENCOUNTER 2025-08-19 14:18 | Emergency (ER) | payer BC, SELFPAY ==
--- NOTE | 2025-08-19 14:15 | RT.EKG_ITS ---
APPROVED REPORT Exam: Resting ECG Reason for Exam: Chest Tightness and Shortnessof Breath Patient Location: E HR:85 bpm ECG Measurements Heart Rate 85 AXIS DC 167 P 51 QRSd 82 QRS 29 QT 362 T 62 QTc 431 Conclusion Sinus rhythm...normal P axis, V-rate 60- 99
[2025-08-19 14:21] VITALS: BP 133/84; PULSE 86; RESP 16; TEMP 36.8; O2SAT 96
--- NOTE | 2025-08-19 14:45 | DI.RAD_ITS ---
Exam(s) XR CHEST 2V PA LATERAL EXAM: XR CHEST 2V PA LATERAL CLINICAL HISTORY: cough. TECHNIQUE: 2D digital imaging was performed. COMPARISON: CR XR CHEST 1V IN DI DEPT from 06/05/2025 FINDINGS: 2 views: Heart size is normal. The mediastinum is not widened. There is subsegmental platelike atelectasis in the left lung base. No confluent infiltrates nor pleural effusions. No pulmonary edema. Chest leads in place IMPRESSION: Subsegmental platelike atelectasis noted in left lung base. DATA REPOSITORY: RADIATION DOSE DELIVERED:
[2025-08-19 15:50] VITALS: BP 136/84; PULSE 73; TEMP 36.9; O2SAT 92
[2025-08-19 16:19] LABS: COVID-19 PCR Negative (Negative); RSV PCR Negative (Negative)
--- NOTE | 2025-08-19 16:31 | W.ED.GENAD ---
Discharge Plan Disposition Patient Disposition: Home Discharge Details Clinical Impression: Cough, Atelectasis of left lung Primary Care Provider: Ross Pugh ED Provider: Eder Mendoza Home Meds and New Rx's Prescriptions: New ipratropium bromide 17 mcg/actuation HFA aerosol inhaler 2 puff inhalation QID Qty: 12.9 0RF No Action alprazolam 2 mg tablet 2 mg PO QHS MDD 2 mg PRN (Reason: sleep) Qty: 20 0RF atorvastatin 40 mg tablet 40 mg PO QHS Qty: 90 3RF Discharge Instructions Instructions: Cough in adults Additional Instructions: As discussed, although you are negative for COVID and flu today I suspect you most likely do have some sort of respiratory virus that has been causing your cough. Chest x-ray did show an area of atelectasis in your left lung which is likely due to the mucus that you have been mobilizing however I would follow-up your primary care to see if repeat x-rays to ensure resolution are in order. Please take the prescribed ipratropium inhaler to help relieve your symptoms, please follow-up with your primary care for further management. I would return the emergency department if you develop persistent shortness of breath, chest pain, heart rate over 100 persistently, or decreased oxygenation as measured by your pulse oximeter ( <90%) persistently. Please follow-up with your primary care provider regarding your visit to the emergency department today. Be sure to discuss results of all test performed here today to include radiology, and laboratory testing as well as results for any pending cultures. Should your symptoms worsen, or if you develop new concerning symptoms, please return immediately emergency department for further evaluation. Stand Alone Forms: Portal Information HPI General Date/Time Provider Initiated Documentation: 08/19/25 14:57. HPI Narrative: MDM/Narrative: 55-year-old male presents for evaluation of cough, and subjective fevers at home. Vital signs in triage within normal limits however most recent pulse ox shows 92% on room air, patient notes that his at home pulse ox has been showing readings as low as 89 over the past several days. Physical exam is unremarkable. Patient's presentation concerning for possible viral syndrome, pneumonia, pneumothorax. Will assess with a chest x-ray, also provide ipratropium nebulizer and reassess oxygenation with an ambulatory pulse ox trial. If symptoms do not improve, or is there is no other diagnosis to explain the patient's intermittent hypoxia we will consider blood work and advanced imaging, despite the patient being low risk for as per Well's criteria. ED course: Patient's chest x-ray shows a platelike atelectasis in the left lung, clinical history of coughing with sputum production, suspect this is likely secondary to mucous plugging. Patient is also performed well for an ambulatory pulse ox without desatting and without being symptomatic. Plan of care discussed the patient has agreement with the plan for discharge follow-up primary care. Disposition: Discharge HPI: 55-year-old female with no seeming past medical history, presents for evaluation of cough with associated burning sensation in his chest after he coughed x 3 to 4 days. Patient also notes that his watch has been calling him that his heart rate has been increasing sporadically, he has also noted some decreased oxygenation on his pulse ox. He also notes subjective fevers since yesterday. Denies any associated chest pain currently, hemoptysis, leg swelling, smoking history, history of blood clots, or prior history of cancer. ROS: Negative besides as mentioned above Exam: Gen: A&O NAD HEENT: NCAT, EOMI, not icteric. External ears normal. No rhinorrhea. Moist mucous membranes. Neck: Supple, full range of motion, no observable masses, No meningeal sign. Lungs: No Respiratory distress. CV: RRR, no edema. Abdomen: Soft, nondistended, No rebound tenderness. MSK: No joint swelling, no redness. Skin: No rashes, petechiae, lesions. Normal color per patient. Neuro: Normal Gait, Grossly intact. Psych: Appropriate for situation. Rhythm: NSR Rate: 85 [place]: Normal axis Intervals: Normal intervals Other findings: No acute ST segment or T wave changes to suggest acute ischemia. Radiology: Accession No. : [id number] Creator : Zhang Underwood Dictator : Zhang Underwood [employer] Manager : Harbor Engineer : Zhang Underwood Approver2 : Report Date : 08/19/2025 15:37:54 Exam(s) XR CHEST 2V PA LATERAL EXAM: XR CHEST 2V PA LATERAL CLINICAL HISTORY: cough. TECHNIQUE: 2D digital imaging was performed. COMPARISON: CR XR CHEST 1V IN DI DEPT from 06/05/2025 FINDINGS: 2 views: Heart size is normal. The mediastinum is not widened. There is subsegmental platelike atelectasis in the left lung base. No confluent infiltrates nor pleural effusions. No pulmonary edema. Chest leads in place IMPRESSION: Subsegmental platelike atelectasis noted in left lung base. DATA REPOSITORY: RADIATION DOSE DELIVERED: Related Data Home Medications ?Medication ?Instructions ?Recorded ?Confirmed atorvastatin 40 mg tablet 40 mg PO QHS #90 tabs 03/09/25 08/19/25 alprazolam 2 mg tablet 2 mg PO QHS PRN sleep #20 tabs 08/02/25 08/19/25 ipratropium bromide 17 2 puff inhalation QID #12.9 grams 08/19/25 mcg/actuation HFA aerosol inhaler Previous Rx's ?Medication ?Instructions ?Recorded atorvastatin 40 mg tablet 40 mg PO QHS #90 tabs 03/09/25 alprazolam 2 mg tablet 2 mg PO QHS PRN sleep #20 tabs 08/02/25 ipratropium bromide 17 2 puff inhalation QID #12.9 grams 08/19/25 mcg/actuation HFA aerosol inhaler Allergies Allergy/AdvReac Type Severity Reaction Status Date / Time lisinopril AdvReac Intermediate Dry Cough Verified 08/19/25 14:32 General Stated Complaint: RespSymp GREGORY: 3 Course Vital Signs Vital signs: Vital Signs Temperature 36.8 C 08/19/25 14:21 Pulse 86 08/19/25 14:21 Respiratory Rate 16 08/19/25 14:21 Blood Pressure 133/84 08/19/25 14:21 Pulse Oximetry 96 08/19/25 14:21 Temperature 36.9 C 08/19/25 15:50 Temperature Source Tympanic 08/19/25 15:50 Pulse 73 08/19/25 15:50 Respiratory Rate 16 08/19/25 14:21 Blood Pressure 136/84 08/19/25 15:50 Blood Pressure Mean 101 08/19/25 15:50 Pulse Oximetry 92 08/19/25 15:50 Oxygen Delivery Method Room Air 08/19/25 15:50 Oxygen Flow Rate 0 08/19/25 15:50 Lab/Test Results Lab/Test Results: Laboratory Tests Range/Units 08/19/25 15:35 COVID-19 Source Nasopharynx SARS-CoV-2 (PCR) (Negative) Negative Influenza Type A (PCR) (Negative) Negative Influenza Type B (PCR) (Negative) Negative RSV (PCR) (Negative) Negative PFSH All Active Problems (Updated 08/19/25 @ 17:24 by Eder Mendoza MD) Atelectasis of left lung (Acute) Cough (Acute) Bunion (Acute) De Quervain's tenosynovitis, bilateral (Acute) Alcoholic liver disease (Acute) Alcohol withdrawal (Acute) Alcohol intoxication in relapsed alcoholic (Acute) Alcohol dependence (Acute) Sexual dysfunction (Acute) Pudendal neuralgia (Acute) White coat syndrome without diagnosis of hypertension (Acute) Chronic rhinitis (Acute 12/21/91) Allergy Dr Meza 06/2012: chandu oliverayrriac Overweight (Acute 09/21/08) Solar keratosis (Acute 12/04/14) Medical History Labile hypertension (02/24/13) high in PM, good in office in AM; 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 risk 5% (12/2011); goal LDL<130 Surgical History No pertinent past surgical history Family History Mother Age: 82 ETOH abuse Father Age: 86 Diabetes Myocardial infarction Heart disease Hypertension Other Hyperlipidemia 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 Pets and animals: Yes Pets and animals: cat(s) Sexually active: Yes Do you think of yourself as: straight/heterosexual Current gender identity: male What is your relationship status?: How often do you talk on the phone with friends or family?: three or more times per week How often do you get together with friends or relatives?: three or more times per week How often do you attend spiritism or uatsdin services?: decline to answer Do you belong to any clubs or organized social groups?: yes Panel score (0-1 are the most socially isolated patients): 3 What type of physical activity do you participate in: bicycling, weight lifting and running Duration: 60-90 minutes/day Frequency: daily Kala/Jew: None Special kala needs: No Seatbelt use: sometimes Helmet use: Yes Drive intox or ride w/intox 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 Grown children. 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
[2025-08-19 16:38] VITALS: RESP 16
[2025-08-19] MEDS: Ipratropium 0.5 MG/2.5 ML UPD VIAL UPD (16:38)
--- NOTE | 2025-08-19 17:10 | NUR.NOTE ---
Nursing Note: pt walked with tech talked the whole time spo2 94% RA
== END 2025-08-19 18:11 | disposition home or self-care (01) ==
PROVIDERS: Emergency Provider General Practice; PCP Family Medicine
DX: J98.11 Atelectasis (principal); R05.9 Cough, unspecified
CPT/HCPCS: 99284 ×2; 94640; 87637; 93005; 71046; 93010; J7644